=== PATIENT | male | born 1980 | race Caucasian/White ===

== ENCOUNTER 2017-01-16 09:05 | Inpatient (IN) | payer OTHER ==
[2017-01-16 11:28] VITALS: BMI 22.8
--- NOTE | 2017-01-16 15:18 | HP ---
COWS - Scale Resting Pulse: 1= PA 81-100 Sweatin=Flushed/Facial Moisture Restless Observation: 3= Extraneous Movement Pupil Size: 2= Moderately Dilated Bone or Joint Aches: 2= Severe Diffuse Aches Runny Nose/ Eye Tearin= Runny Nose/Eyes GI Upset > 30mins: 3= Vomiting/Diarrhea Tremor Observation: 2= Slight Tremor Visible Yawning Observation: 2= >3x During Session Anxiety or Irritability: 2=Irritable/Anxious Goose Flesh Skin: 0=Smooth Skin COWS Score: 21 CIWA Score - CIWA Score Nausea/Vomitin Muscle Tremors: 3 Anxiety: 3 Agitation: 3 Paroxysmal Sweats: 2 Orientation: 0-Oriented Tacttile Disturbances: 2-Mild Itch/Numbness/Burn Auditory Disturbances: 2-Mild Harshness/Frighten Visual Disturbances: 2-Mild Sensitivity Headache: 2-Mild CIWA-Ar Total Score: 22 Admission ROS BHS - HPI Chief Complaint: i need help to stop using heroin , alcohol and xanax,need detox,last treatment promeza 11/14 nicotine dependence insomnia,depression no significant period of sobriety had previous detox before but relapsing Allergies/Adverse Reactions: Allergies Allergy/AdvReac Type Severity Reaction Status Date / Time No Known Allergies Allergy Verified 01/16/17 12:05 History of Present Illness: this 36 years old male with heroin,alcohol and xanax dependence for detox as mentioned Exam Limitations: No Limitations - Ebola screening Have you traveled outside of the country in the last 21 days: No Have you had contact with anyone from an Ebola affected area: No Have you been sick,other than usual withdrawal symptoms: No - Review of Systems Constitutional: Chills, Diaphoresis, Malaise, Changes in sleep, Unintentional Wgt. Loss EENT: reports: Tearing, Nose Congestion Respiratory: reports: No Symptoms reported Cardiac: reports: Palpitations GI: reports: Diarrhea, Nausea, Vomiting, Abdominal cramping : reports: No Symptoms Reported Musculoskeletal: reports: Back Pain, Joint Pain, Muscle Pain, Joint Stiffness Integumentary: reports: Dryness Neuro: reports: Headache, Tremors Endocrine: reports: No Symptoms Reported Hematology: reports: No Symptoms Reported Psychiatric: reports: No Sypmtoms Reported, Judgement Intact, Mood/Affect Appropiate, Depressed (insomnia) Patient History - Patient Medical History Hx Anemia: No Hx Asthma: No Hx Chronic Obstructive Pulmonary Disease (COPD): No Hx Cancer: No Hx Cardiac Disorders: No Hx Congestive Heart Failure: No Hx Hypertension: No Hx Hypercholesterolemia: No Hx Pacemaker: No HX Cerebrovascular Accident: No Hx Seizures: No Hx Dementia: No Hx Diabetes: No Hx Gastrointestinal Disorders: No Hx Liver Disease: No Hx Genitourinary Disorders: No Hx Sexually Transmitted Disorders: No Hx Renal Disease (ESRD): No Hx Thyroid Disease: No Hx Human Immunodeficiency Virus (HIV): No (10/15 negative) Hx Hepatitis C: No Hx Depression: Yes Hx Suicide Attempt: No Hx Bipolar Disorder: No Hx Schizophrenia: No Other Medical History: insomnia,no suicidal,no homicidal - Patient Surgical History Past Surgical History: No - PPD History Previous Implant?: Yes Documented Results: Negative w/proof Implanted On Prior [facility] Admission?: Yes Date: 11/12/15 Results: 0 mm PPD to be Administered?: Yes - Smoking Cessation Smoking history: Current every day smoker Have you smoked in the past 12 months: Yes Aproximately how many cigarettes per day: 20 Cigars Per Day: 0 Hx Chewing Tobacco Use: No Initiated information on smoking cessation: Yes 'Breaking Loose' booklet given: 01/16/17 - Substance & Tx. History Hx Alcohol Use: Yes Hx Substance Use: Yes Substance Use Type: Alcohol, Heroin, Tranquilizers Hx Substance Use Treatment: Yes (adrien 10/15) - Substances Abused Alcohol Route: Oral Frequency: Daily Amount used: beer(3 -12oz bottles)/vodka(1 pint) Age of first use: 16 Date of Last Use: 01/14/17 Heroin Route: Injection Frequency: Daily Amount used: 2 gms Age of first use: 33 Date of Last Use: 01/16/17 Alprazolam (Xanax) Route: Oral Frequency: Daily Amount used: 2-3 stiks Age of first use: 33 Date of Last Use: 01/14/17 Family Disease History - Family Disease History Family History: Denies Admission Physical Exam BHS - Vital Signs Vital Signs: Vital Signs - 24 hr 01/16/17 11:24 Temperature 98.3 F Pulse Rate 83 Respiratory 16 Rate Blood Pressure 130/73 - Physical General Appearance: Yes: Moderate Distress, Tremorous, Irritable, Sweating, Anxious HEENTM: Yes: Hearing grossly Normal, Normal ENT Inspection, RENA, Pharynx Normal Respiratory: Yes: Lungs Clear, Normal Breath Sounds, No Respiratory Distress Neck: Yes: Within Normal Limits, Supple, Trachea in good position Cardiology: Yes: Within Normal Limits, Regular Rhythm, Regular Rate, S1, S2 Abdominal: Yes: Normal Bowel Sounds, Non Tender, Flat, Soft Genitourinary: Yes: Within Normal Limits Back: Yes: Muscle Spasm Musculoskeletal: Yes: Back pain, Joint Stiffness, Muscle Pain Extremities: Yes: Normal Range of Motion, Tremors Neurological: Yes: airport ramp supervisor II-XII NML intact, Fully Oriented, Alert, Motor Strength 5/5 Integumentary: Yes: Dry Lymphatic: Yes: Within Normal Limits - Diagnostic (1) Opioid dependence with withdrawal Current Visit: No Status: Chronic (2) Alcohol dependence with uncomplicated withdrawal Current Visit: Yes Status: Acute (3) Uncomplicated sedative, hypnotic or anxiolytic withdrawal Current Visit: Yes Status: Acute (4) Insomnia Current Visit: Yes Status: Acute (5) Depression Current Visit: Yes Status: Acute Cleared for Admission [facility] - Detox or Rehab [facility] Level of Care: Medically Managed Detox Regimen/Protocol: Methadone/Valium [facility] Breath Alcohol Content Breath Alcohol Content: 0 Urine Drug Screen - Results Drug Screen Negative: No Urine Drug Screen Results: OPI-Opiates, BZO-Benzodiazepines
[2017-01-16] MEDS ORDERED: MENTHOL/PHENOL 1 EACH UD MM PRN (15:30)
[2017-01-16] MEDS ORDERED: MAGNESIUM CITRATE 300 ML BOTTLE PO PRN (15:30)
[2017-01-16] MEDS ORDERED: IBUPROFEN 400 MG TABLET (FP) PO PRN (15:30)
[2017-01-16] MEDS ORDERED: LOPERAMIDE HCL 2 MG CAPSULE PO PRN (15:30)
[2017-01-16] MEDS ORDERED: MAGNESIUM HYDROX 2400MG/30ML ORAL SUSPENSION 30 ML CUP PO PRN (15:30)
[2017-01-16] MEDS ORDERED: P-EPHED 60MG/TRIPROLIDI 2.5MG TABLET PO PRN (15:30)
[2017-01-16] MEDS ORDERED: MAG HYDROX/AL HYDROX/SIMETH 30 ML UNIT-DOSE CUP PO PRN (15:30)
[2017-01-16] MEDS ORDERED: NICOTINE POLACRILEX 2 MG GUM BC PRN (15:30)
[2017-01-16] MEDS ORDERED: guaiFENesin/D-METHORPHAN HB 10 ML UNIT-DOSE CUPS PO PRN (15:30)
[2017-01-16] MEDS ORDERED: ACETAMINOPHEN 325 MG TABLET (FP) PO PRN (15:30)
[2017-01-16] MEDS ORDERED: diazePAM 5 MG TABLET PO ONE (15:44)
[2017-01-16] MEDS ORDERED: METHADONE HCL 10 MG TABLET (FOR DETOX USE ONLY) PO ONE ×2 (15:45→23:00)
[2017-01-16] MEDS: THIAMINE HCL 100 MG TABLET (FP) PO SCH (22:30)
[2017-01-16] MEDS: diazePAM 5 MG TABLET PO SCH (22:30)
[2017-01-16] MEDS: cloNIDine HCL 0.1 MG TABLET PO SCH (22:30)
[2017-01-16] MEDS: diphenhydrAMINE HCL 50 MG CAPSULE PO PRN (22:31)
[2017-01-16] MEDS: CYCLOBENZAPRINE HCL 10 MG TABLET (FP) PO PRN (22:32)
[2017-01-16 23:21] LABS: URINE APPEARANCE CLEAR; URINE BILIRUBIN NEGATIVE (NEGATIVE); URINE BLOOD NEGATIVE (NEGATIVE); URINE COLOR YELLOW; URINE GLUCOSE (UA) NEGATIVE (NEGATIVE); URINE KETONE TRACE (NEGATIVE); URINE LEUK ESTERASE NEGATIVE (NEGATIVE); URINE NITRITE NEGATIVE (NEGATIVE); URINE PROTEIN NEGATIVE (NEGATIVE); URINE UROBILINOGEN NEGATIVE mg/dL (0.2-1.0)
[2017-01-17] MEDS: diazePAM 5 MG TABLET PO SCH ×3 (05:30→22:14)
--- NOTE | 2017-01-17 08:25 | CONSULT ---
[facility] Psychiatric Consult - Data Date of interview: 01/17/17 Admission source: [facility] Identifying data: This is 36 years old male with no psychiatric hospitalization history intoxicated with: Alcohol, Xanax, Opioids and Nicotine Substance Abuse History: - Smoking Cessation. Smoking history: Current every day smoker. Have you smoked in the past 12 months: Yes. Aproximately how many cigarettes per day: 20. Cigars Per Day: 0. Hx Chewing Tobacco Use: No. Initiated information on smoking cessation: Yes. 'Breaking Loose' booklet given : 01/16/17. - Substance & Tx. History. Hx Alcohol Use: Yes. Hx Substance Use : Yes. Substance Use Type: Alcohol, Heroin, Tranquilizers. Hx Substance Use Treatment: Yes (promeza 10/15). - Substances Abused. Alcohol. Route: Oral. Frequency: Daily. Amount used: beer(3 -12oz bottles)/vodka(1 pint). Age of first use: 16. Date of Last Use: 01/14/17. Heroin. Route: Injection. Frequency: Daily. Amount used: 2 gms. Age of first use: 33. Date of Last Use: 01/16/17. Alprazolam (Xanax). Route: Oral. Frequency: Daily. Amount used: 2-3 stiks. Age of first use: 33. Date of Last Use: 01/14/17 Medical History: Denies any significant medical problems Psychiatric History: Patient reports mhbistory of depression, reports no medications taking prior to admission, denies suicidal history, preoccupied with insomnia, reports taking prior to admission. Ambien 10mg po qhs Physical/Sexual Abuse/Trauma History: Denies Additional Comment: Ambien 10mg po qhs Mental Status Exam - Mental Status Exam Alert and Oriented to: Person Cognitive Function: Fair Patient Appearance: Unkempt Mood: Sad Affect: Mood Congruent Patient Behavior: Cooperative Speech Pattern: Appropriate Voice Loudness: Normal Thought Process: Circumstantial Thought Disorder: Being Controlled Hallucinations: Denies Suicidal Ideation: Denies Homicidal Ideation: Denies Insight/Judgement: Fair Sleep: Difficulty falling asleep Appetite: Fair Muscle strength/Tone: Mild Hypotonicity Gait/Station: Shuffling Additional Comments: Ambien 10mg po qhs Psychiatric Findings - Problem List ([place] 1, 2,3) (1) Alcohol dependence with uncomplicated withdrawal Current Visit: Yes Status: Acute (2) Uncomplicated sedative, hypnotic or anxiolytic withdrawal Current Visit: Yes Status: Acute (3) Nicotine dependence Current Visit: No Status: Chronic Qualifiers: Nicotine product type: cigarettes Substance use status: uncomplicated Qualified Code(s): F17.210 - Nicotine dependence, cigarettes, uncomplicated (4) Opioid dependence with withdrawal Current Visit: No Status: Chronic (5) Drug-induced mood disorder Current Visit: Yes Status: Acute - Initial Treatment Plan Initial Treatment Plan: Ambien 10mg po qhs
[2017-01-17] MEDS ORDERED: METHADONE HCL 10 MG TABLET (FOR DETOX USE ONLY) PO SCH (10:00)
[2017-01-17 10:06] LABS: MCH 27.9 pg (25.7-33.7); MCHC 33.2 g/dl (32.0-35.9); MEAN CELL VOLUME 84.1 fl (80-96); MEAN PLT VOLUME 9.4 fl (7.5-11.1); PLATELET COUNT 219 K/MM3 (134-434); RDW 14.4 % (11.9-15.9); WHITE BLOOD COUNT 9.2 K/mm3 (4.0-10.0)
[2017-01-17 10:09] LABS: ANION GAP 6 (8-16); CALCIUM 9.8 mg/dL (8.5-10.1); CO2 30 mmol/L (21-32); CREATININE 0.7 mg/dL (0.7-1.3); GLUCOSE,RANDOM 87 mg/dL (74-106); SGOT/AST 15 U/L (15-37); SGPT/ALT 20 U/L (12-78); TOT PROT 8.7 g/dl (6.4-8.2)
[2017-01-17 10:12] LABS: ALK PHOS 86 U/L (45-117); BILIRUBIN,TOTAL 0.5 mg/dL (0.2-1.0)
[2017-01-17] MEDS: cloNIDine HCL 0.1 MG TABLET PO SCH ×2 (10:33→22:14)
[2017-01-17] MEDS: PRENATAL VITAMINS W/ FOLIC ACID TABLET (FP) PO SCH (10:33)
[2017-01-17] MEDS: CYCLOBENZAPRINE HCL 10 MG TABLET (FP) PO PRN (10:35)
[2017-01-17] MEDS: diazePAM 5 MG TABLET PO PRN (10:35)
--- NOTE | 2017-01-17 11:08 | PN ---
S CIWA - CIWA Score Nausea/Vomitin Muscle Tremors: 3 Anxiety: 3 Agitation: 3 Paroxysmal Sweats: 2 Orientation: 0-Oriented Tacttile Disturbances: 1-Very Mild Itch/Numbness Auditory Disturbances: 1-Very Mild Visual Disturbances: 1-Very Mild Sensitivity Headache: 2-Mild CIWA-Ar Total Score: 19 BHS COWS - Scale Resting Pulse: 1= PA 81-100 Sweatin= Chills/Flushing Restless Observation: 3= Extraneous Movement Pupil Size: 1= Pupils >than Normal Bone or Joint Aches: 2= Severe Diffuse Aches Runny Nose/ Eye Tearin= Runny Nose/Eyes GI Upset > 30mins: 2= Nausea/Diarrhea Tremor Observation of Outstretched Hands: 2= Slight Tremor Visible Yawning Observation: 1= 1-2x During Session Anxiety or Irritability: 2=Irritable/Anxious Goose Flesh Skin: 0=Smooth Skin COWS Score: 17 S Progress Note (SOAP) Subjective: ALERT,IRRITABLE,ANXIOUS,INTERRUPTED SLEEP,TREMOR,PAIN IN THE BODY AND BACK Objective: 01/17/17 11:06 Vital Signs Temperature 98.1 F 01/17/17 10:00 Pulse Rate 62 01/17/17 10:00 Respiratory Rate 18 01/17/17 10:00 Blood Pressure 112/83 01/17/17 10:00 O2 Sat by Pulse Oximetry (%) EKG NSR NO CHEST PAIN,NO SOB,NO DIZZINESS Laboratory Last Values WBC 9.2 K/mm3 (4.0-10.0) 01/17/17 06:00 RBC 5.39 M/mm3 (4.00-5.60) 01/17/17 06:00 Hgb 15.0 GM/dL (11.7-16.9) 01/17/17 06:00 Hct 45.3 % (35.4-49) 01/17/17 06:00 MCV 84.1 fl (80-96) 01/17/17 06:00 MCH 27.9 pg (25.7-33.7) 01/17/17 06:00 MCHC 33.2 g/dl (32.0-35.9) 01/17/17 06:00 RDW 14.4 % (11.9-15.9) 01/17/17 06:00 Plt Count 219 K/MM3 (134-434) 01/17/17 06:00 MPV 9.4 fl (7.5-11.1) 01/17/17 06:00 Sodium 135 mmol/L (136-145) L 01/17/17 06:00 Potassium 4.4 mmol/L (3.5-5.1) 01/17/17 06:00 Chloride 99 mmol/L (98-107) 01/17/17 06:00 Carbon Dioxide 30 mmol/L (21-32) 01/17/17 06:00 Anion Gap 6 (8-16) L 01/17/17 06:00 BUN 8 mg/dL (7-18) 01/17/17 06:00 Creatinine 0.7 mg/dL (0.7-1.3) 01/17/17 06:00 Creat Clearance w eGFR > 60 (>60) 01/17/17 06:00 Random Glucose 87 mg/dL (74-106) 01/17/17 06:00 Calcium 9.8 mg/dL (8.5-10.1) 01/17/17 06:00 Total Bilirubin 0.5 mg/dL (0.2-1.0) D 01/17/17 06:00 AST 15 U/L (15-37) D 01/17/17 06:00 ALT 20 U/L (12-78) 01/17/17 06:00 Alkaline Phosphatase 86 U/L (45-117) 01/17/17 06:00 Total Protein 8.7 g/dl (6.4-8.2) H 01/17/17 06:00 Albumin 4.0 g/dl (3.4-5.0) 01/17/17 06:00 Urine Color Yellow 01/16/17 22:00 Urine Appearance Clear 01/16/17 22:00 Urine pH 6.0 (5.0-8.0) 01/16/17 22:00 Ur Specific [place] 1.025 (1.005-1.025) 01/16/17 22:00 Urine Protein Negative (NEGATIVE) 01/16/17 22:00 Urine Glucose (UA) Negative (NEGATIVE) 01/16/17 22:00 Urine Ketones Trace (NEGATIVE) H 01/16/17 22:00 Urine Blood Negative (NEGATIVE) 01/16/17 22:00 Urine Nitrite Negative (NEGATIVE) 01/16/17 22:00 Urine Bilirubin Negative (NEGATIVE) 01/16/17 22:00 Urine Urobilinogen Negative mg/dL (0.2-1.0) 01/16/17 22:00 Ur Leukocyte Esterase Negative (NEGATIVE) 01/16/17 22:00 RPR Titer Nonreactive (NONREACTIVE) 01/17/17 06:00 WITHDRAWAL SYMPTOM Assessment: 01/17/17 11:07 WITHDRAWAL SYMPTOM Plan: CONTINUE DETOX
--- NOTE | 2017-01-17 16:38 | EKG ---
Test Reason : Blood Pressure : / mmHG Vent. Rate : 061 BPM Atrial Rate : 061 BPM P-R Int : 182 ms QRS Dur : 092 ms QT Int : 386 ms P-R-T Axes : 055 092 048 degrees QTc Int : 388 ms NORMAL SINUS RHYTHM RIGHTWARD AXIS BORDERLINE ECG NO PREVIOUS ECGS AVAILABLE Confirmed by ESTEFANY ORTIZ, NGUYEN ([id number]) on 01/17/2017 4:38:09 PM Referred By: Confirmed By:NGUYEN ALLISON MD
[2017-01-17] MEDS: THIAMINE HCL 100 MG TABLET (FP) PO SCH (22:14)
[2017-01-17] MEDS: ZOLPIDEM TARTRATE 10 MG TABLET (PARK CARE ONLY) PO PRN (22:14)
[2017-01-18] MEDS: diazePAM 5 MG TABLET PO PRN ×3 (02:41→18:21)
[2017-01-18] MEDS: hydrOXYzine PAMOATE 50 MG CAPSULE (FP) PO PRN (02:41)
[2017-01-18] MEDS: PRENATAL VITAMINS W/ FOLIC ACID TABLET (FP) PO SCH (11:00)
[2017-01-18] MEDS: diazePAM 5 MG TABLET PO SCH ×2 (11:00→22:48)
[2017-01-18] MEDS: METHADONE HCL 5 MG TABLET (FOR DETOX USE ONLY) PO SCH (11:00)
[2017-01-18] MEDS: cloNIDine HCL 0.1 MG TABLET PO SCH ×2 (11:00→22:48)
--- NOTE | 2017-01-18 11:12 | PN ---
[facility] CIWA - CIWA Score Nausea/Vomitin Muscle Tremors: 3 Anxiety: 3 Agitation: 2 Paroxysmal Sweats: 1-Minimal Palms Moist Orientation: 0-Oriented Tacttile Disturbances: 1-Very Mild Itch/Numbness Auditory Disturbances: 1-Very Mild Visual Disturbances: 1-Very Mild Sensitivity Headache: 2-Mild CIWA-Ar Total Score: 17 BHS COWS - Scale Resting Pulse: 0= MD 80 or Below Sweatin= Chills/Flushing Restless Observation: 3= Extraneous Movement Pupil Size: 1= Pupils >than Normal Bone or Joint Aches: 2= Severe Diffuse Aches Runny Nose/ Eye Tearin= Runny Nose/Eyes GI Upset > 30mins: 2= Nausea/Diarrhea Tremor Observation of Outstretched Hands: 2= Slight Tremor Visible Yawning Observation: 1= 1-2x During Session Anxiety or Irritability: 2=Irritable/Anxious Goose Flesh Skin: 0=Smooth Skin COWS Score: 16 S Progress Note (SOAP) Subjective: ALERT,IRRITABLE,ANXIOUS,INTERRUPTED SLEEP,PAIN IN THE BODY AND BACK Objective: 01/18/17 11:11 Vital Signs Temperature 97.5 F L 01/18/17 10:00 Pulse Rate 72 01/18/17 10:00 Respiratory Rate 18 01/18/17 10:00 Blood Pressure 116/75 01/18/17 10:00 O2 Sat by Pulse Oximetry (%) Assessment: 01/18/17 11:11 WITHDRAWAL SYMPTOM Plan: CONTINUE DETOX
[2017-01-18] MEDS: CYCLOBENZAPRINE HCL 10 MG TABLET (FP) PO PRN ×2 (14:25→22:48)
[2017-01-18] MEDS: THIAMINE HCL 100 MG TABLET (FP) PO SCH (22:48)
[2017-01-18] MEDS: ZOLPIDEM TARTRATE 10 MG TABLET (PARK CARE ONLY) PO PRN (22:48)
[2017-01-19] MEDS: diazePAM 5 MG TABLET PO PRN (02:44)
[2017-01-19] MEDS: METHADONE HCL 5 MG TABLET (FOR DETOX USE ONLY) PO SCH (11:04)
[2017-01-19] MEDS: cloNIDine HCL 0.1 MG TABLET PO SCH ×2 (11:04→22:41)
[2017-01-19] MEDS: PRENATAL VITAMINS W/ FOLIC ACID TABLET (FP) PO SCH (11:04)
[2017-01-19] MEDS: hydrOXYzine PAMOATE 50 MG CAPSULE (FP) PO PRN (11:04)
[2017-01-19] MEDS: CYCLOBENZAPRINE HCL 10 MG TABLET (FP) PO PRN (11:04)
[2017-01-19] MEDS: diazePAM 5 MG TABLET PO SCH ×2 (11:05→22:41)
--- NOTE | 2017-01-19 11:56 | PN ---
BHS Progress Note (SOAP) Subjective: alert,irritable,anxious,interrupted sleep,pain in the body Objective: 01/19/17 11:55 Vital Signs Temperature 98.1 F 01/19/17 10:00 Pulse Rate 73 01/19/17 10:00 Respiratory Rate 18 01/19/17 10:00 Blood Pressure 113/57 01/19/17 10:00 O2 Sat by Pulse Oximetry (%) Assessment: 01/19/17 11:56 withdrawal symptom Plan: continue detox
[2017-01-19] MEDS: ZOLPIDEM TARTRATE 10 MG TABLET (PARK CARE ONLY) PO PRN (22:41)
[2017-01-19] MEDS: THIAMINE HCL 100 MG TABLET (FP) PO SCH (22:41)
[2017-01-20] MEDS: diphenhydrAMINE HCL 50 MG CAPSULE PO PRN (02:32)
[2017-01-20] MEDS: hydrOXYzine PAMOATE 50 MG CAPSULE (FP) PO PRN (06:03)
[2017-01-20] MEDS ORDERED: diazePAM 5 MG TABLET PO SCH (10:00)
[2017-01-20] MEDS ORDERED: METHADONE HCL 10 MG TABLET (FOR DETOX USE ONLY) PO SCH (10:00)
[2017-01-20] MEDS: cloNIDine HCL 0.1 MG TABLET PO SCH ×2 (10:47→22:18)
[2017-01-20] MEDS: CYCLOBENZAPRINE HCL 10 MG TABLET (FP) PO PRN ×2 (10:47→22:18)
[2017-01-20] MEDS: PRENATAL VITAMINS W/ FOLIC ACID TABLET (FP) PO SCH (10:47)
--- NOTE | 2017-01-20 11:01 | PN ---
BHS Progress Note (SOAP) Subjective: ALERT,IRRITABLE,ANXIOUS,INTERRUPTED SLEEP Objective: 01/20/17 11:00 Vital Signs Temperature 97 F L 01/20/17 10:00 Pulse Rate 60 01/20/17 10:00 Respiratory Rate 18 01/20/17 10:00 Blood Pressure 121/77 01/20/17 10:00 O2 Sat by Pulse Oximetry (%) Assessment: 01/20/17 11:00 WITHDRAWAL SYMPTOM Plan: CONTINUE DETOX,DISCHARGE IN AM
[2017-01-20] MEDS: ZOLPIDEM TARTRATE 10 MG TABLET (PARK CARE ONLY) PO PRN (22:18)
[2017-01-20] MEDS: THIAMINE HCL 100 MG TABLET (FP) PO SCH (22:18)
[2017-01-21] MEDS: diphenhydrAMINE HCL 50 MG CAPSULE PO PRN (00:03)
[2017-01-21] MEDS: hydrOXYzine PAMOATE 50 MG CAPSULE (FP) PO PRN ×2 (03:47→11:12)
[2017-01-21] MEDS ORDERED: METHADONE HCL 5 MG TABLET (FOR DETOX USE ONLY) PO SCH (06:00)
[2017-01-21 06:15] VITALS: BP 115/63; PULSE 47; TEMP 97.7
--- NOTE | 2017-01-21 08:08 | DS ---
[facility] Detox Discharge Summary Admission Date: 01/16/17 Discharge Date: 01/21/17 - History Present History: Alcohol Dependence, Opioid Dependence, Sedative Dependence Additional Comments: FOLLOW UP WITH AFTER CARE PROGRAM ARRANGEMENT Pertinent Past History: INSOMNIA DEPRESSION - Physical Exam Results Vital Signs: Vital Signs Temperature 97.7 F 01/21/17 06:14 Pulse Rate 47 L 01/21/17 06:14 Respiratory Rate 18 01/21/17 06:14 Blood Pressure 115/63 01/21/17 06:14 O2 Sat by Pulse Oximetry (%) Pertinent Admission Physical Exam Findings: WITHDRAWAL SYMPTOM - Treatment Hospital Course: Detox Protocol Followed, Detoxed Safely, Responded well, Discharged Condition Good Patient has Accepted a Rehab Referral to: DECLINED - Medication Discharge Medications: Ambulatory Orders NK [No Known Home Medication] 11/10/15 - Diagnosis (1) Opioid dependence with withdrawal Current Visit: No Status: Chronic (2) Alcohol dependence with uncomplicated withdrawal Current Visit: Yes Status: Acute (3) Uncomplicated sedative, hypnotic or anxiolytic withdrawal Current Visit: Yes Status: Acute (4) Insomnia Current Visit: Yes Status: Acute (5) Depression Current Visit: Yes Status: Acute (6) Nicotine dependence Current Visit: No Status: Chronic Qualifiers: Nicotine product type: cigarettes Substance use status: uncomplicated Qualified Code(s): F17.210 - Nicotine dependence, cigarettes, uncomplicated - AMA Did Patient Leave Against Medical Advice: No
[2017-01-21] MEDS: cloNIDine HCL 0.1 MG TABLET PO SCH (11:12)
[2017-01-21] MEDS: PRENATAL VITAMINS W/ FOLIC ACID TABLET (FP) PO SCH (11:12)
== END 2017-01-21 11:48 | disposition home or self-care (01) | DRG 773 ==
LOC: YASAS 09:05 → Y6N 13:09
PROVIDERS: ADMIT Internal Medicine Addiction Medicine; ATTEND Internal Medicine Addiction Medicine
PROC: HZ2ZZZZ Detoxification Services for Substance Abuse Treatment (ICD-10-PCS; principal; 2017-01-16)
DX: F11.23 Opioid dependence with withdrawal (principal); F13.230 Sedative, hypnotic or anxiolytic dependence with withdrawal, uncomplicated; F10.230 Alcohol dependence with withdrawal, uncomplicated; F17.210 Nicotine dependence, cigarettes, uncomplicated; F32.9 Major depressive disorder, single episode, unspecified; G47.00 Insomnia, unspecified
CPT/HCPCS: 36415; 80053; 81003; 85027; 86593; 93005; 93010

== ENCOUNTER 2017-09-24 13:22 | Inpatient (IN) | payer OTHER ==
[2017-09-24] MEDS ORDERED: ACETAMINOPHEN 325 MG TABLET (FP) PO PRN (13:41)
[2017-09-24] MEDS ORDERED: LOPERAMIDE HCL 2 MG CAPSULE PO PRN (13:41)
[2017-09-24] MEDS ORDERED: MAG HYDROX/AL HYDROX/SIMETH 30 ML UNIT-DOSE CUP PO PRN (13:41)
[2017-09-24] MEDS ORDERED: P-EPHED 60MG/TRIPROLIDI 2.5MG TABLET PO PRN (13:41)
[2017-09-24] MEDS ORDERED: MAGNESIUM HYDROX 2400MG/30ML ORAL SUSPENSION 30 ML CUP PO PRN (13:41)
[2017-09-24] MEDS ORDERED: MAGNESIUM CITRATE 300 ML BOTTLE PO PRN (13:41)
[2017-09-24] MEDS ORDERED: guaiFENesin/D-METHORPHAN HB 10 ML UNIT-DOSE CUPS PO PRN (13:41)
[2017-09-24] MEDS ORDERED: NICOTINE POLACRILEX 2 MG GUM BUC PRN (13:41)
[2017-09-24] MEDS ORDERED: MENTHOL/PHENOL 1 EACH UD MM PRN (13:41)
--- NOTE | 2017-09-24 14:11 | HP ---
Psychiatrist Admission - Data Date of interview: 09/24/17 Admission source: 3N Identifying data: This is the [facility] [place] Inpatient rehabilitation admission for this 37 years old male living as , father of 5 children, unemployed, living with his mother Medical History: Unremarkable except for abscess right forearm due IVDU. Smokes 10 cigarettes daily Psychiatric History: Denies history of previous psychiatric treatment. However reports feeling somewhat depressed due to immigation issue and sleeping poorly Physical/Sexual Abuse/Trauma History: Denies history of emotional, physical or sexual abuseas well as DV relationship Additional Comment: Reports history of multiple previous arrests. Cla he had one felony that was dismissed after he completed a program. Denies being on probation at present. No active opoen case Vital Signs: Vital Signs - 24 hr 09/24/17 13:46 Temperature 97.3 F L Pulse Rate 63 Respiratory 18 Rate Blood Pressure 101/74 Allergies/Adverse Reactions: Allergies Allergy/AdvReac Type Severity Reaction Status Date / Time No Known Allergies Allergy Verified 09/24/17 13:46 Date of last physical exam: 09/19/17 Concur with the findings of this exam: Yes - Substance Abuse/Tx History Hx Alcohol Use: No Mental Status Exam - Mental Status Exam Alert and Oriented to: Time, Place, Person Cognitive Function: Fair Patient Appearance: Well Groomed Mood: Depressed Affect: Appropriate Patient Behavior: Cooperative Speech Pattern: Clear Voice Loudness: Normal Thought Process: Intact, Goal Oriented Thought Disorder: Not Present Hallucinations: Denies Suicidal Ideation: Denies Homicidal Ideation: Denies Insight/Judgement: Poor Sleep: Poorly Appetite: Good Muscle strength/Tone: Normal Gait/Station: Normal Psychiatric Findings - Problem List ([place] 1, 2,3) (1) Opioid dependence Current Visit: Yes Status: Acute (2) Sedative hypnotic or anxiolytic dependence Current Visit: Yes Status: Acute (3) Nicotine dependence Current Visit: Yes Status: Chronic Qualifiers: Nicotine product type: cigarettes Substance use status: in withdrawal Qualified Code(s): F17.213 - Nicotine dependence, cigarettes, with withdrawal (4) Substance induced mood disorder Current Visit: Yes Status: Acute (5) Substance-induced sleep disorder Current Visit: Yes Status: Acute (6) Cellulitis Current Visit: Yes Status: Chronic Qualifiers: Site of cellulitis: extremity Site of cellulitis of extremity: upper extremity Laterality: right Qualified Code(s): L03.113 - Cellulitis of right upper limb - Initial Treatment Plan Initial Treatment Plan: 1) Start Belsomra 10 mg po HS prn for insomnia. 2) Monitor progress
--- NOTE | 2017-09-24 14:17 | HP ---
[facility] Rehab Assess/Revision - Admission History Ad[facility] Rehab [facility] Date of Admission to Rehab: 09/24/17 - Vital signs Vital Signs: Vital Signs Period Temp Pulse Resp BP Sys/Lantigua Pulse Ox Last 24 Hr 97.3 F 63 18 101/74 - Findings Detox History & Physical reviewed: Yes Concur with findings: Yes Comments/Additional Findings: ADMITTED TO REHAB FOR AFTERCARE IN STABLE CONDITION. Inpatient Rehab Admission - Initial Determination Are CD services needed?: Yes Free of communicable disease: Yes Not in need of hospitalization: Yes - Rehab Admission Criteria Patient is meeting Inpatient Rehab admission criteria:: Yes
[2017-09-24] MEDS: CLINDAMYCIN HCL 150 MG CAPSULE (FP) PO SCH ×2 (15:51→21:31)
[2017-09-24] MEDS: NICOTINE 14 MG/24 HOURS TOPICAL PATCH TD SCH (15:52)
[2017-09-24] MEDS: THIAMINE HCL 100 MG TABLET (FP) PO SCH (21:31)
[2017-09-24] MEDS ORDERED: SUVOREXANT 10 MG TABLET PO PRN (22:00)
[2017-09-25] MEDS: CLINDAMYCIN HCL 150 MG CAPSULE (FP) PO SCH ×3 (06:26→21:33)
[2017-09-25] MEDS: NICOTINE 14 MG/24 HOURS TOPICAL PATCH TD SCH (09:53)
[2017-09-25] MEDS: PRENATAL VITAMINS W/ FOLIC ACID TABLET (FP) PO SCH (09:53)
[2017-09-25] MEDS: IBUPROFEN 400 MG TABLET (FP) PO PRN (09:55)
[2017-09-25] MEDS ORDERED: [UNRECOGNIZED DRUG - OTHER] TP SCH (10:00)
[2017-09-25] MEDS: [UNRECOGNIZED DRUG - OTHER] TP SCH (10:32)
--- NOTE | 2017-09-25 13:35 | PN ---
[facility] Progress Note Note: Patient presents with withdrawal symptoms: sweating, nausea, diarrhea, tremors and anxiety. Vital Signs Temperature 97.8 F 09/25/17 06:50 Pulse Rate 61 09/25/17 06:50 Respiratory Rate 18 09/25/17 06:50 Blood Pressure 107/71 09/25/17 06:50 O2 Sat by Pulse Oximetry (%) Subj:pt reports anxiety, tremors, sweating and diarrhea x 3 days. Completed detox from heroin. Was treated in past with suboxone. Obj: A and O x 3. Skin warm and moist. +tremors. Pt anxious and has difficulty sitting still. Gi: soft, BS+, NT A/P Withdrawal symptoms from Heroin dependence Will start Suboxone 2mg today then 2mg daily starting tomorrow. Continue immodium for diarrhea and oral hydration Continue to monitor clinically
--- NOTE | 2017-09-25 13:36 | PN ---
Psychiatric Progress Note Vital Signs: Vital Signs Period Temp Pulse Resp BP Sys/Lantigua Pulse Ox Last 24 Hr 97.3 F-97.8 F 61-63 18-18 101-107/71-74 Date of Session: 09/25/17 Chief Complaint:: Insomnia HPI: Patient addressing Opoid and Sedative Dependence comorbid with Nicotine Dependence, Substance-Induced Mood Disorder and Substance-Induced Sleep Disorder ROS: Cellulitis right forearm Current Medications: Active Medications Generic Name Dose Route Start Last Admin Trade Name Freq PRN Reason Stop Dose Admin Acetaminophen 650 mg 09/24/17 13:41 Tylenol - PO Q4H PRN FEVER Al Hydroxide/Mg Hydroxide 30 ml 09/24/17 13:41 Mylanta Oral Suspension - PO Q6H PRN DYSPEPSIA Buprenorphine/Naloxone 1 each 09/25/17 13:45 Suboxone 2mg/0.5mg Sl Film - SL 09/25/17 13:46 ONCE ONE Buprenorphine/Naloxone 1 each 09/26/17 10:00 Suboxone 2mg/0.5mg Sl Film - SL DAILY FITZ Clindamycin HCl 600 mg 09/24/17 14:00 09/25/17 06:26 Cleocin - PO 600 mg Q8H FITZ Administration Eucalyptus/Menthol/Phenol/Sorbitol 1 each 09/24/17 13:41 Cepastat Lozenge - MM Q4H PRN SORE THROAT Guaifenesin 10 ml 09/24/17 13:41 Robitussin Dm - PO Q6H PRN COUGH Hydroxyzine Pamoate 50 mg 09/24/17 13:41 Vistaril - PO Q4H PRN AGITATION Ibuprofen 400 mg 09/24/17 13:41 09/25/17 09:55 Motrin - PO 400 mg Q6H PRN Administration Pain Level 4-6 Loperamide HCl 4 mg 09/24/17 13:41 Imodium - PO Q6H PRN DIARRHEA Magnesium Citrate 300 ml 09/24/17 13:41 Citroma - PO Q48H PRN CONSTIPATION Magnesium Hydroxide 30 ml 09/24/17 13:41 Milk Of Magnesia - PO DAILY PRN CONSTIPATION Melatonin 5 mg 09/24/17 22:00 Melatonin PO HS PRN INSOMNIA Nicotine 14 mg 09/24/17 14:00 09/25/17 09:53 Nicoderm Patch - TD Not Given DAILY FITZ Nicotine Polacrilex 2 mg 09/24/17 13:41 Nicorette Gum - BUC Q2H PRN NICOTINE REPLACEMENT RX Non-Formulary Medication 1 applic 09/25/17 10:00 Gel Dressing [Solosite] TP DAILY FITZ Multivit/Folic Acid/Iron 1 tab 09/25/17 10:00 09/25/17 09:53 Vitamins ([facility]) - PO 1 tab DAILY FITZ Administration Pseudoephedrine/Triprolidine 1 combo 09/24/17 13:41 Actifed - PO TID PRN NASAL CONGESTION Thiamine HCl 100 mg 09/24/17 22:00 09/24/17 21:31 Vitamin B1 - PO 100 mg HS FITZ Administration Medication(s) Change(s): Increase Belsomra dosage to 15 mg po HS prn for insmnia Current Side Effect: No Lab tests ordered: Yes Lab tests reviewed: Yes Provider note:: Patient reports experiencing difficuly to sleep. Told narrative writer that he has been sleeping poorly despite taking Belsomra 10 mg at bedtime last night. Discussed about raising dosage to 15 mg po HS as needed and he agreed with plan Total face to face time:: 15 Mental Status Exam - Mental Status Exam Alert and Oriented to: Time, Place, Person Cognitive Function: Fair Patient Appearance: Well Groomed Mood: Hopeful, Euthymic Affect: Appropriate Patient Behavior: Cooperative Speech Pattern: Clear Voice Loudness: Normal Thought Process: Intact, Goal Oriented Thought Disorder: Not Present Hallucinations: Denies Suicidal Ideation: Denies Homicidal Ideation: Denies Insight/Judgement: Fair Sleep: Poorly Appetite: Good Muscle strength/Tone: Normal Gait/Station: Normal Psychiatric Treatment Plan - Problem List (1) Opioid dependence Current Visit: Yes (2) Sedative hypnotic or anxiolytic dependence Current Visit: Yes (3) Nicotine dependence Current Visit: Yes Qualifiers: Nicotine product type: cigarettes Substance use status: in withdrawal Qualified Code(s): F17.213 - Nicotine dependence, cigarettes, with withdrawal (4) Substance induced mood disorder Current Visit: Yes (5) Substance-induced sleep disorder Current Visit: Yes (6) Cellulitis Current Visit: Yes Qualifiers: Site of cellulitis: extremity Site of cellulitis of extremity: upper extremity Laterality: right Qualified Code(s): L03.113 - Cellulitis of right upper limb Initial treatment plan: 1) Discontiue Belsomra 10 mg po HS prn for insomnia. 2 ) Start Belsomra 15 mg po HS prn for insomnia. 3) Monitor progress
[2017-09-25] MEDS ORDERED: BUPRENORPHINE/NALOXONE 2 MG/0.5 MG FILM PACKET SL ONE (13:45)
[2017-09-25] MEDS: SUVOREXANT 15 MG TABLET PO PRN (21:33)
[2017-09-25] MEDS: THIAMINE HCL 100 MG TABLET (FP) PO SCH (21:33)
[2017-09-26] MEDS: CLINDAMYCIN HCL 150 MG CAPSULE (FP) PO SCH ×3 (06:22→21:38)
--- NOTE | 2017-09-26 07:49 | PDOC ---
Patient Follow-up (Call Back) - Post ED Follow - Up Reason for Call Back: Abnwl. Microbiology (Patient Gram stain culture normal. Wound culture preliminary report shows presumptive PS aeruginosa and lactose fermenting negative bacilli. Patient currently on clindamycin will await final report.)
[2017-09-26] MEDS: NICOTINE 14 MG/24 HOURS TOPICAL PATCH TD SCH (10:10)
[2017-09-26] MEDS: [UNRECOGNIZED DRUG - OTHER] TP SCH (10:10)
[2017-09-26] MEDS: BUPRENORPHINE/NALOXONE 2 MG/0.5 MG FILM PACKET SL SCH (10:10)
[2017-09-26] MEDS: PRENATAL VITAMINS W/ FOLIC ACID TABLET (FP) PO SCH (10:10)
[2017-09-26] MEDS: THIAMINE HCL 100 MG TABLET (FP) PO SCH (21:38)
[2017-09-26] MEDS: SUVOREXANT 15 MG TABLET PO PRN (21:39)
[2017-09-26] MEDS: hydrOXYzine PAMOATE 50 MG CAPSULE (FP) PO PRN (21:40)
[2017-09-27] MEDS: CLINDAMYCIN HCL 150 MG CAPSULE (FP) PO SCH ×3 (06:26→22:07)
[2017-09-27] MEDS: PRENATAL VITAMINS W/ FOLIC ACID TABLET (FP) PO SCH (10:16)
[2017-09-27] MEDS: BUPRENORPHINE/NALOXONE 2 MG/0.5 MG FILM PACKET SL SCH (10:16)
[2017-09-27] MEDS: NICOTINE 14 MG/24 HOURS TOPICAL PATCH TD SCH (10:16)
[2017-09-27] MEDS: [UNRECOGNIZED DRUG - OTHER] TP SCH (10:17)
[2017-09-27] MEDS ORDERED: PT OWN MED DRAWER 7, Y5N ONE (14:42)
--- NOTE | 2017-09-27 14:55 | PN ---
[facility] Progress Note Note: Patient presents with protected opioid withdrawal symptoms: sweating, nausea, diarrhea, tremors and anxiety. Vital Signs Period Temp Pulse Resp BP Sys/Lantigua Pulse Ox Last 24 Hr 98.0 F 62 18 129/75 Subj:pt reports anxiety, tremors, sweating and diarrhea. Reports Suboxone help temporarily but sympotms return today. Completed detox from heroin. Was treated in past with suboxone . Obj: A and O x 3. No apparent distress Skin warm and moist. +tremors. Pt anxious and has difficulty sitting still. Gi: soft, BS+, NT Normal HR, RR A/P Protracted withdrawal symptoms from Heroin dependence Will increase Suboxone from 2mg today to 4 mg daily starting tomorrow. Continue immodium for diarrhea and oral hydration Increase fluids Continue to monitor clinically
[2017-09-27] MEDS: hydrOXYzine PAMOATE 50 MG CAPSULE (FP) PO PRN (22:06)
[2017-09-27] MEDS: SUVOREXANT 15 MG TABLET PO PRN (22:06)
[2017-09-27] MEDS: THIAMINE HCL 100 MG TABLET (FP) PO SCH (22:06)
[2017-09-27] MEDS: MELATONIN 5 MG TABLETS PO PRN (22:06)
[2017-09-28] MEDS: CLINDAMYCIN HCL 150 MG CAPSULE (FP) PO SCH ×3 (07:08→21:30)
[2017-09-28] MEDS: BUPRENORPHINE/NALOXONE 2 MG/0.5 MG FILM PACKET SL SCH (09:52)
[2017-09-28] MEDS: PRENATAL VITAMINS W/ FOLIC ACID TABLET (FP) PO SCH (09:52)
[2017-09-28] MEDS: NICOTINE 14 MG/24 HOURS TOPICAL PATCH TD SCH (09:53)
[2017-09-28] MEDS: [UNRECOGNIZED DRUG - OTHER] TP SCH (10:23)
[2017-09-28] MEDS ORDERED: PT OWN MED DRAWER 7, Y5N ONE ×3 (11:09→15:23)
--- NOTE | 2017-09-28 15:39 | PN ---
[facility] Progress Note Note: Psychiatry Attending's note : Belsomra 15 mg po hs prn. Renewed at nurse's request. Brief meeting with patient. Mr Romero agrees with that careplan.
[2017-09-28] MEDS: MELATONIN 5 MG TABLETS PO PRN (21:29)
[2017-09-28] MEDS: SUVOREXANT 15 MG TABLET PO PRN (21:30)
[2017-09-28] MEDS: THIAMINE HCL 100 MG TABLET (FP) PO SCH (21:30)
[2017-09-28] MEDS: hydrOXYzine PAMOATE 50 MG CAPSULE (FP) PO PRN (21:30)
[2017-09-29] MEDS: CLINDAMYCIN HCL 150 MG CAPSULE (FP) PO SCH ×3 (06:52→21:26)
[2017-09-29] MEDS: PRENATAL VITAMINS W/ FOLIC ACID TABLET (FP) PO SCH (09:59)
[2017-09-29] MEDS: NICOTINE 14 MG/24 HOURS TOPICAL PATCH TD SCH (09:59)
[2017-09-29] MEDS: BUPRENORPHINE/NALOXONE 2 MG/0.5 MG FILM PACKET SL SCH (09:59)
[2017-09-29] MEDS: [UNRECOGNIZED DRUG - OTHER] TP SCH (10:01)
[2017-09-29] MEDS ORDERED: PT OWN MED DRAWER 7, Y5N ONE (10:02)
[2017-09-29] MEDS: THIAMINE HCL 100 MG TABLET (FP) PO SCH (21:26)
[2017-09-29] MEDS: SUVOREXANT 15 MG TABLET PO PRN (21:26)
[2017-09-29] MEDS: MELATONIN 5 MG TABLETS PO PRN (21:27)
[2017-09-29] MEDS: hydrOXYzine PAMOATE 50 MG CAPSULE (FP) PO PRN (21:27)
[2017-09-30] MEDS: CLINDAMYCIN HCL 150 MG CAPSULE (FP) PO SCH ×3 (06:38→21:23)
[2017-09-30] MEDS: NICOTINE 14 MG/24 HOURS TOPICAL PATCH TD SCH (10:05)
[2017-09-30] MEDS: BUPRENORPHINE/NALOXONE 2 MG/0.5 MG FILM PACKET SL SCH (10:05)
[2017-09-30] MEDS: PRENATAL VITAMINS W/ FOLIC ACID TABLET (FP) PO SCH (10:05)
[2017-09-30] MEDS: [UNRECOGNIZED DRUG - OTHER] TP SCH (10:07)
[2017-09-30] MEDS ORDERED: PT OWN MED DRAWER 7, Y5N ONE (10:08)
--- NOTE | 2017-09-30 14:00 | PN ---
[facility] Progress Note Note: Patient presents with c/o ongoing headache, sweating and diarrhea despite increase of suboxone to 4mg daily x 2 days. Vital Signs Temperature 97.6 F 09/30/17 07:07 Pulse Rate 75 09/30/17 07:07 Respiratory Rate 18 09/30/17 07:07 Blood Pressure 134/86 09/30/17 07:07 O2 Sat by Pulse Oximetry (%) Vital Signs Last Vital Signs Obj: awake, alert and oriented x 3. Skin moist and warm. Anxious Car: S1S2. RRR. No murmurs or gallops. HR 78 Resp: CTA BL GI: soft, BS+, NT A/P withdrawal symptoms Will increase suboxone to 8mg daily starting tomorrow. Continue all other previous medications Continue to monitor clinically.
[2017-09-30] MEDS: SUVOREXANT 15 MG TABLET PO PRN (21:23)
[2017-09-30] MEDS: MELATONIN 5 MG TABLETS PO PRN (21:23)
[2017-09-30] MEDS: hydrOXYzine PAMOATE 50 MG CAPSULE (FP) PO PRN (21:23)
[2017-09-30] MEDS: THIAMINE HCL 100 MG TABLET (FP) PO SCH (21:23)
[2017-10-01] MEDS: CLINDAMYCIN HCL 150 MG CAPSULE (FP) PO SCH (06:32)
[2017-10-01] MEDS: [UNRECOGNIZED DRUG - OTHER] TP SCH (10:01)
[2017-10-01] MEDS: PRENATAL VITAMINS W/ FOLIC ACID TABLET (FP) PO SCH (10:01)
[2017-10-01] MEDS: NICOTINE 14 MG/24 HOURS TOPICAL PATCH TD SCH (10:01)
[2017-10-01] MEDS: BUPRENORPHINE/NALOXONE 8 MG/2 MG FILM PACKET SL SCH (10:01)
[2017-10-01] MEDS: THIAMINE HCL 100 MG TABLET (FP) PO SCH (22:11)
[2017-10-01] MEDS: SUVOREXANT 15 MG TABLET PO PRN (22:12)
[2017-10-01] MEDS: hydrOXYzine PAMOATE 50 MG CAPSULE (FP) PO PRN (22:13)
[2017-10-01] MEDS: MELATONIN 5 MG TABLETS PO PRN (22:13)
[2017-10-02] MEDS: NICOTINE 14 MG/24 HOURS TOPICAL PATCH TD SCH (10:07)
[2017-10-02] MEDS: PRENATAL VITAMINS W/ FOLIC ACID TABLET (FP) PO SCH (10:07)
[2017-10-02] MEDS: BUPRENORPHINE/NALOXONE 8 MG/2 MG FILM PACKET SL SCH (10:07)
[2017-10-02] MEDS: [UNRECOGNIZED DRUG - OTHER] TP SCH (10:08)
[2017-10-02] MEDS: MELATONIN 5 MG TABLETS PO PRN (21:26)
[2017-10-02] MEDS: SUVOREXANT 15 MG TABLET PO PRN (21:26)
[2017-10-02] MEDS: THIAMINE HCL 100 MG TABLET (FP) PO SCH (21:26)
[2017-10-02] MEDS: hydrOXYzine PAMOATE 50 MG CAPSULE (FP) PO PRN (21:26)
[2017-10-03] MEDS: BUPRENORPHINE/NALOXONE 8 MG/2 MG FILM PACKET SL SCH (10:01)
[2017-10-03] MEDS: PRENATAL VITAMINS W/ FOLIC ACID TABLET (FP) PO SCH (10:01)
[2017-10-03] MEDS: NICOTINE 14 MG/24 HOURS TOPICAL PATCH TD SCH (10:01)
[2017-10-03] MEDS: [UNRECOGNIZED DRUG - OTHER] TP SCH (10:02)
[2017-10-03] MEDS: THIAMINE HCL 100 MG TABLET (FP) PO SCH (21:26)
[2017-10-03] MEDS: MELATONIN 5 MG TABLETS PO PRN (21:26)
[2017-10-03] MEDS: SUVOREXANT 15 MG TABLET PO PRN (21:27)
[2017-10-03] MEDS: hydrOXYzine PAMOATE 50 MG CAPSULE (FP) PO PRN (21:28)
[2017-10-03] MEDS: IBUPROFEN 400 MG TABLET (FP) PO PRN (23:02)
[2017-10-04] MEDS: NICOTINE 14 MG/24 HOURS TOPICAL PATCH TD SCH (10:07)
[2017-10-04] MEDS: PRENATAL VITAMINS W/ FOLIC ACID TABLET (FP) PO SCH (10:07)
[2017-10-04] MEDS: BUPRENORPHINE/NALOXONE 8 MG/2 MG FILM PACKET SL SCH (10:07)
[2017-10-04] MEDS: [UNRECOGNIZED DRUG - OTHER] TP SCH (10:08)
[2017-10-04] MEDS: MELATONIN 5 MG TABLETS PO PRN (21:37)
[2017-10-04] MEDS: SUVOREXANT 15 MG TABLET PO PRN (21:37)
[2017-10-04] MEDS: hydrOXYzine PAMOATE 50 MG CAPSULE (FP) PO PRN (21:37)
[2017-10-04] MEDS: THIAMINE HCL 100 MG TABLET (FP) PO SCH (21:37)
[2017-10-05] MEDS: BUPRENORPHINE/NALOXONE 8 MG/2 MG FILM PACKET SL SCH (09:43)
[2017-10-05] MEDS: PRENATAL VITAMINS W/ FOLIC ACID TABLET (FP) PO SCH (09:43)
[2017-10-05] MEDS: NICOTINE 14 MG/24 HOURS TOPICAL PATCH TD SCH (09:43)
[2017-10-05] MEDS: [UNRECOGNIZED DRUG - OTHER] TP SCH (09:43)
[2017-10-05] MEDS: THIAMINE HCL 100 MG TABLET (FP) PO SCH (21:34)
[2017-10-05] MEDS: MELATONIN 5 MG TABLETS PO PRN (21:35)
[2017-10-05] MEDS: SUVOREXANT 15 MG TABLET PO PRN (21:36)
[2017-10-05] MEDS: hydrOXYzine PAMOATE 50 MG CAPSULE (FP) PO PRN (21:36)
[2017-10-06] MEDS ORDERED: PT OWN MED DRAWER 7, Y5N ONE ×2 (08:52→14:27)
[2017-10-06] MEDS: BUPRENORPHINE/NALOXONE 8 MG/2 MG FILM PACKET SL SCH (10:07)
[2017-10-06] MEDS: NICOTINE 14 MG/24 HOURS TOPICAL PATCH TD SCH (10:07)
[2017-10-06] MEDS: [UNRECOGNIZED DRUG - OTHER] TP SCH (10:07)
[2017-10-06] MEDS: PRENATAL VITAMINS W/ FOLIC ACID TABLET (FP) PO SCH (10:07)
[2017-10-06] MEDS: hydrOXYzine PAMOATE 50 MG CAPSULE (FP) PO PRN (21:46)
[2017-10-06] MEDS: THIAMINE HCL 100 MG TABLET (FP) PO SCH (21:46)
[2017-10-06] MEDS: SUVOREXANT 15 MG TABLET PO PRN (21:47)
[2017-10-06] MEDS: MELATONIN 5 MG TABLETS PO PRN (21:47)
[2017-10-07] MEDS: BUPRENORPHINE/NALOXONE 8 MG/2 MG FILM PACKET SL SCH (10:13)
[2017-10-07] MEDS: PRENATAL VITAMINS W/ FOLIC ACID TABLET (FP) PO SCH (10:13)
[2017-10-07] MEDS: NICOTINE 14 MG/24 HOURS TOPICAL PATCH TD SCH (10:14)
[2017-10-07] MEDS: [UNRECOGNIZED DRUG - OTHER] TP SCH (10:14)
--- NOTE | 2017-10-07 14:41 | PN ---
S Progress Note Note: Patient presents with c/o sweating, anxiety and irritability in the evening. States prior next dose of suboxone he feels like he is jumping out of his skin. Vital Signs Temperature 97.8 F 10/07/17 06:46 Pulse Rate 78 10/07/17 06:46 Respiratory Rate 18 10/07/17 06:46 Blood Pressure 120/70 10/07/17 06:46 O2 Sat by Pulse Oximetry (%) Obj: Pt is alert and oriented x 3. In NAD. Palms moist. Ambulating in unit without assistance. Ext without edema. +anxiety. A/P Withdrawal symptoms Will increase suboxone to 16mg daily continue to monitor clinically
[2017-10-07] MEDS: SUVOREXANT 15 MG TABLET PO PRN (21:30)
[2017-10-07] MEDS: hydrOXYzine PAMOATE 50 MG CAPSULE (FP) PO PRN (21:30)
[2017-10-07] MEDS: MELATONIN 5 MG TABLETS PO PRN (21:30)
[2017-10-07] MEDS: THIAMINE HCL 100 MG TABLET (FP) PO SCH (21:30)
[2017-10-07] MEDS ORDERED: SUVOREXANT 15 MG TABLET PO PRN (22:00)
--- NOTE | 2017-10-08 06:51 | PN ---
Psychiatric Progress Note Vital Signs: Vital Signs Period Temp Pulse Resp BP Sys/Lantigua Pulse Ox Last 24 Hr Date of Session: 10/08/17 Chief Complaint:: Discharge Note HPI: Patient addressing Opioid and Sedatve Dependence comorbid with Nicotine Depebndence, Substance-Induced Mood Disorder and Subtance-Induced Sleep Disorder ROS: Cellulitis Current Medications: Active Medications Generic Name Dose Route Start Last Admin Trade Name Freq PRN Reason Stop Dose Admin Acetaminophen 650 mg 09/24/17 13:41 09/26/17 06:23 Tylenol - PO 650 mg Q4H PRN Administration FEVER Al Hydroxide/Mg Hydroxide 30 ml 09/24/17 13:41 Mylanta Oral Suspension - PO Q6H PRN DYSPEPSIA Buprenorphine/Naloxone 1 each 10/08/17 10:00 Suboxone 12 Mg-3 Mg Sl Film SL DAILY [facility] Eucalyptus/Menthol/Phenol/Sorbitol 1 each 09/24/17 13:41 Cepastat Lozenge - MM Q4H PRN SORE THROAT Guaifenesin 10 ml 09/24/17 13:41 Robitussin Dm - PO Q6H PRN COUGH Hydroxyzine Pamoate 50 mg 09/24/17 13:41 10/07/17 21:30 Vistaril - PO 50 mg Q4H PRN Administration AGITATION Ibuprofen 400 mg 09/24/17 13:41 10/03/17 23:02 Motrin - PO 400 mg Q6H PRN Administration Pain Level 4-6 Loperamide HCl 4 mg 09/24/17 13:41 Imodium - PO Q6H PRN DIARRHEA Magnesium Citrate 300 ml 09/24/17 13:41 Citroma - PO Q48H PRN CONSTIPATION Magnesium Hydroxide 30 ml 09/24/17 13:41 Milk Of Magnesia - PO DAILY PRN CONSTIPATION Melatonin 5 mg 09/24/17 22:00 10/07/17 21:30 Melatonin PO 5 mg HS PRN Administration INSOMNIA Nicotine 14 mg 09/24/17 14:00 10/07/17 10:14 Nicoderm Patch - TD Not Given DAILY [facility] Nicotine Polacrilex 2 mg 09/24/17 13:41 Nicorette Gum - BUC Q2H PRN NICOTINE REPLACEMENT RX Non-Formulary Medication 1 applic 09/25/17 10:00 10/07/17 10:14 Gel Dressing [Solosite] TP 1 applic DAILY FITZ Administration Multivit/Folic Acid/Iron 1 tab 09/25/17 10:00 10/07/17 10:13 Vitamins (Sjr) - PO 1 tab DAILY FITZ Administration Pseudoephedrine/Triprolidine 1 combo 09/24/17 13:41 Actifed - PO TID PRN NASAL CONGESTION Suvorexant 15 mg 10/07/17 22:00 Belsomra PO 10/10/17 21:59 HS PRN INSOMNIA Thiamine HCl 100 mg 09/24/17 22:00 10/07/17 21:30 Vitamin B1 - PO 100 mg HS FITZ Administration Current Side Effect: No Lab tests ordered: Yes Lab tests reviewed: Yes Provider note:: Patient will complete this program on 10/09/17. He has met his treatment goals and will continue to address his issues in outpatient treatment at [facility].Told health underwriter that from his participation in this program, he has learned the importance of establising a sober support network to mantain sobriety. He responded well to Belsomra prn for insomnia. He is stable for discharge on 10/09/17 Total face to face time:: 35 Mental Status Exam - Mental Status Exam Alert and Oriented to: Time, Place, Person Cognitive Function: Fair Patient Appearance: Well Groomed Mood: Hopeful, Euthymic Affect: Appropriate Patient Behavior: Cooperative Speech Pattern: Clear Voice Loudness: Normal Thought Process: Intact, Goal Oriented Thought Disorder: Not Present Hallucinations: Denies Suicidal Ideation: Denies Homicidal Ideation: Denies Insight/Judgement: Fair Sleep: Fair Appetite: Good Muscle strength/Tone: Normal Gait/Station: Normal Psychiatric Treatment Plan - Problem List (1) Opioid dependence Current Visit: Yes Qualifiers: Substance use status: uncomplicated Qualified Code(s): F11.20 - Opioid dependence, uncomplicated (2) Sedative hypnotic or anxiolytic dependence Current Visit: Yes (3) Nicotine dependence Current Visit: Yes Qualifiers: Nicotine product type: cigarettes Substance use status: in withdrawal Qualified Code(s): F17.213 - Nicotine dependence, cigarettes, with withdrawal (4) Substance induced mood disorder Current Visit: Yes (5) Substance-induced sleep disorder Current Visit: Yes (6) Cellulitis Current Visit: Yes Qualifiers: Site of cellulitis: extremity Site of cellulitis of extremity: upper extremity Laterality: right Qualified Code(s): L03.113 - Cellulitis of right upper limb Initial treatment plan: Patient will be discharged tomorrow and referred to [facility] for outpatient treatment
[2017-10-08] MEDS ORDERED: PT OWN MED DRAWER 7, Y5N ONE (09:11)
[2017-10-08] MEDS ORDERED: BUPRENORPHINE/NALOXONE 8 MG/2 MG FILM PACKET SL SCH ×2 (10:00→22:00)
[2017-10-08] MEDS ORDERED: BUPRENORPHINE/NALOXONE 2 MG/0.5 MG FILM PACKET SL SCH (10:00)
[2017-10-08] MEDS ORDERED: BUPRENORPHINE HCL/NALOXONE 12 MG-3 MG SL FILM PACKET SL SCH (10:00)
[2017-10-08] MEDS: PRENATAL VITAMINS W/ FOLIC ACID TABLET (FP) PO SCH (10:01)
[2017-10-08] MEDS: [UNRECOGNIZED DRUG - OTHER] TP SCH (10:01)
[2017-10-08] MEDS: NICOTINE 14 MG/24 HOURS TOPICAL PATCH TD SCH (10:01)
--- NOTE | 2017-10-08 13:41 | PN ---
[facility] Progress Note Note: Patient c/o to complain of protracted withdrawal symptoms: anxious chills and sweats. Vital Signs Temperature 97.7 F 10/08/17 07:16 Pulse Rate 66 10/08/17 07:16 Respiratory Rate 18 10/08/17 07:16 Blood Pressure 128/78 10/08/17 07:16 O2 Sat by Pulse Oximetry (%) A/P AOx3, anxious Ambulating in the unit Normal HR No adventitious breath sounds One time dose of Suboxone off 4mg add on for today for total 16mg for today to improve symptoms Continue Suboxone 16mg in divided dose of 8mg AM and 8mg PM starting 10/09/17 Patient reports plan to attend out patient program at [facility]
[2017-10-08] MEDS ORDERED: BUPRENORPHINE/NALOXONE 2 MG/0.5 MG FILM PACKET SL ONE (14:00)
[2017-10-08] MEDS: THIAMINE HCL 100 MG TABLET (FP) PO SCH (21:31)
[2017-10-08] MEDS: hydrOXYzine PAMOATE 50 MG CAPSULE (FP) PO PRN (21:31)
[2017-10-08] MEDS: MELATONIN 5 MG TABLETS PO PRN (21:31)
[2017-10-09 06:43] VITALS: BP 134/75; PULSE 68; TEMP 97.8
[2017-10-09] MEDS: PRENATAL VITAMINS W/ FOLIC ACID TABLET (FP) PO SCH (09:57)
[2017-10-09] MEDS: NICOTINE 14 MG/24 HOURS TOPICAL PATCH TD SCH (09:58)
[2017-10-09] MEDS ORDERED: BUPRENORPHINE/NALOXONE 8 MG/2 MG FILM PACKET SL SCH (10:00)
[2017-10-09] MEDS ORDERED: PT OWN MED DRAWER 7, Y5N ONE (10:51)
== END 2017-10-09 10:15 | disposition home or self-care (01) | DRG 772 ==
LOC: YASAS 13:22 → Y3W 13:28
PROVIDERS: ADMIT Psychiatry & Neurology Psychiatry; ATTEND Psychiatry & Neurology Psychiatry
PROC: HZ42ZZZ Group Counseling for Substance Abuse Treatment, Cognitive-Behavioral (ICD-10-PCS; principal; 2017-09-24)
DX: F11.20 Opioid dependence, uncomplicated (principal); F13.230 Sedative, hypnotic or anxiolytic dependence with withdrawal, uncomplicated; F17.210 Nicotine dependence, cigarettes, uncomplicated; F19.24 Other psychoactive substance dependence with psychoactive substance-induced mood disorder; F19.282 Other psychoactive substance dependence with psychoactive substance-induced sleep disorder; L03.113 Cellulitis of right upper limb; Z51.81 Encounter for therapeutic drug level monitoring

== ENCOUNTER 2018-01-23 10:04 | Inpatient (IN) | payer OTHER ==
[2018-01-23 10:20] VITALS: BMI 21.5
--- NOTE | 2018-01-23 15:43 | HP ---
COWS - Scale Resting Pulse: 0= [place] 80 or Below Sweatin= Chills/Flushing Restless Observation: 1= Difficult to Sit Still Pupil Size: 0= Normal to Room Light Bone or Joint Aches: 2= Severe Diffuse Aches Runny Nose/ Eye Tearin= Runny Nose/Eyes GI Upset > 30mins: 2= Nausea/Diarrhea Tremor Observation: 2= Slight Tremor Visible Yawning Observation: 2= >3x During Session Anxiety or Irritability: 2=Irritable/Anxious Goose Flesh Skin: 3=Piloerection COWS Score: 17 CIWA Score - CIWA Score Nausea/Vomitin-Mild Nausea/No Vomiting Muscle Tremors: 4-Moderate,w/Arms Extend Anxiety: 4-Mod. Anxious/Guarded Agitation: 4-Moderately Restless Paroxysmal Sweats: 1-Minimal Palms Moist Orientation: 0-Oriented Tacttile Disturbances: 1-Very Mild Itch/Numbness Auditory Disturbances: 0-None Visual Disturbances: 0-None Headache: 1-Very Mild CIWA-Ar Total Score: 16 Admission ROS S - HPI Chief Complaint: xanax and heroin withdrawal sx Allergies/Adverse Reactions: Allergies Allergy/AdvReac Type Severity Reaction Status Date / Time No Known Allergies Allergy Verified 01/23/18 11:36 History of Present Illness: 37 years old male with long history of xanax heroin nicotine dependence has weight loss and anxiety is admitted to detox Exam Limitations: No Limitations - Ebola screening Have you traveled outside of the country in the last 21 days: No Have you had contact with anyone from an Ebola affected area: No Have you been sick,other than usual withdrawal symptoms: No Do you have a fever: No - Review of Systems Constitutional: Loss of Appetite, Changes in sleep, Unintentional Wgt. Loss, Unexplained wgt Loss EENT: reports: No Symptoms Reported Respiratory: reports: No Symptoms reported Cardiac: reports: No Symptoms Reported GI: reports: Nausea, Poor Appetite, Poor Fluid Intake, Abdominal cramping : reports: No Symptoms Reported Musculoskeletal: reports: Back Pain, Joint Pain, Muscle Pain, Neck Pain Integumentary: reports: Change in Color (arms fingers) Neuro: reports: Tremors Endocrine: reports: No Symptoms Reported Hematology: reports: No Symptoms Reported Psychiatric: reports: Judgement Intact, Orientated x3, Anxious, Depressed Other Systems: Reviewed and Negative Patient History - Patient Medical History Hx Anemia: No Hx Asthma: No Hx Chronic Obstructive Pulmonary Disease (COPD): No Hx Cancer: No Hx Cardiac Disorders: No Hx Congestive Heart Failure: No Hx Hypertension: No Hx Hypercholesterolemia: No Hx Pacemaker: No HX Cerebrovascular Accident: No Hx Seizures: No Hx Dementia: No Hx Diabetes: No Hx Gastrointestinal Disorders: No Hx Liver Disease: No Hx Genitourinary Disorders: No Hx Sexually Transmitted Disorders: No Hx Renal Disease (ESRD): No Hx Thyroid Disease: No Hx Human Immunodeficiency Virus (HIV): No (10/15 negative) Hx Hepatitis C: No Hx Depression: Yes Hx Suicide Attempt: No Hx Bipolar Disorder: No Hx Schizophrenia: No - Patient Surgical History Past Surgical History: No Hx Neurologic Surgery: No Hx Cataract Extraction: No Hx Cardiac Surgery: No Hx Lung Surgery: No Hx Breast Surgery: No Hx Breast Biopsy: No Hx Abdominal Surgery: No Hx Appendectomy: No Hx Cholecystectomy: No Hx Genitourinary Surgery: No Hx Orthopedic Surgery: No - PPD History Previous Implant?: Yes Documented Results: Negative w/o proof Implanted On Prior R Admission?: Yes Date: 01/18/17 Results: 0 mm PPD to be Administered?: No - Smoking Cessation Smoking history: Current every day smoker Have you smoked in the past 12 months: Yes Aproximately how many cigarettes per day: 10 Cigars Per Day: 0 Hx Chewing Tobacco Use: No Initiated information on smoking cessation: Yes 'Breaking Loose' booklet given: 01/23/18 - Substance & Tx. History Hx Alcohol Use: No Hx Substance Use: Yes Substance Use Type: Heroin, Opiates, Tranquilizers Hx Substance Use Treatment: Yes (08/2017 [facility] - Substances Abused Heroin Route: Injection Frequency: Daily Amount used: 2 grams Age of first use: 33 Date of Last Use: 01/23/18 Alprazolam (Xanax) Route: Injection Frequency: Daily Amount used: 6-8mg Age of first use: 32 Date of Last Use: 01/23/18 Family Disease History - Family Disease History Family Disease History: Other: Father ( elizabeth) Admission Physical Exam [facility] - Vital Signs Vital Signs: Vital Signs - 24 hr 01/23/18 10:18 Temperature 97.6 F Pulse Rate 70 Respiratory 17 Rate Blood Pressure 102/63 - Physical General Appearance: Yes: Appropriately Dressed, Mild Distress, Thin, Tremorous, Irritable, Sweating, Anxious HEENTM: Yes: Hearing grossly Normal, Normocephalic, Normal Voice Respiratory: Yes: Chest Non-Tender, Lungs Clear, Normal Breath Sounds, No Respiratory Distress, No Accessory Muscle Use Neck: Yes: Supple, Trachea in good position Breast: Yes: Breasts Symetrical, No Discharge Cardiology: Yes: Regular Rhythm, Regular Rate, S1, S2 Abdominal: Yes: Normal Bowel Sounds, Non Tender, Flat, Soft Genitourinary: Yes: Within Normal Limits Back: Yes: Normal Inspection Musculoskeletal: Yes: full range of Motion, Gait Steady, Back pain, Muscle Pain Extremities: Yes: Normal Range of Motion, Non-Tender, Tremors Neurological: Yes: Fully Oriented, Alert, Motor Strength 5/5, Normal Response, Depressed Affect Integumentary: Yes: Warm, Track Villanueva (ARMS) Lymphatic: Yes: Within Normal Limits - Diagnostic (1) Weight loss Current Visit: Yes Status: Acute (2) Anxiety with depression Current Visit: Yes Status: Suspected (3) Sedative hypnotic or anxiolytic dependence Current Visit: Yes Status: Acute (4) Nicotine dependence Current Visit: Yes Status: Acute Qualifiers: Nicotine product type: cigarettes Substance use status: in withdrawal Qualified Code(s): F17.213 - Nicotine dependence, cigarettes, with withdrawal (5) Opioid dependence with withdrawal Current Visit: Yes Status: Acute Cleared for Admission [facility] - Detox or Rehab [facility] Level of Care: Medically Managed Detox Regimen/Protocol: Methadone/Valium [facility] Breath Alcohol Content Breath Alcohol Content: 0 Urine Drug Screen - Results Drug Screen Negative: No Urine Drug Screen Results: OPI-Opiates, BZO-Benzodiazepines, OXY-Oxycodone
[2018-01-23] MEDS ORDERED: MENTHOL/PHENOL 1 EACH UD MM PRN (15:44)
[2018-01-23] MEDS ORDERED: MAGNESIUM HYDROX 2400MG/30ML ORAL SUSPENSION 30 ML CUP PO PRN (15:44)
[2018-01-23] MEDS ORDERED: NICOTINE POLACRILEX 2 MG GUM BC PRN (15:44)
[2018-01-23] MEDS ORDERED: ACETAMINOPHEN 325 MG TABLET (FP) PO PRN (15:44)
[2018-01-23] MEDS ORDERED: guaiFENesin/D-METHORPHAN HB 10 ML UNIT-DOSE CUPS PO PRN (15:44)
[2018-01-23] MEDS ORDERED: MAG HYDROX/AL HYDROX/SIMETH 30 ML UNIT-DOSE CUP PO PRN (15:44)
[2018-01-23] MEDS ORDERED: P-EPHED 60MG/TRIPROLIDI 2.5MG TABLET PO PRN (15:44)
[2018-01-23] MEDS ORDERED: LOPERAMIDE HCL 2 MG CAPSULE PO PRN (15:44)
[2018-01-23] MEDS ORDERED: diazePAM 5 MG TABLET PO PRN (15:44)
[2018-01-23] MEDS ORDERED: MAGNESIUM CITRATE 300 ML BOTTLE PO PRN (15:44)
[2018-01-23] MEDS ORDERED: METHADONE HCL 10 MG TABLET (FOR DETOX USE ONLY) PO ONE ×2 (16:00→23:00)
[2018-01-23] MEDS ORDERED: diazePAM 5 MG TABLET PO ONE (16:00)
[2018-01-23] MEDS: BACLOFEN 10 MG TABLET (FP) PO SCH ×2 (17:25→22:32)
[2018-01-23] MEDS: NICOTINE 14 MG/24 HOURS TOPICAL PATCH TD SCH (17:26)
[2018-01-23] MEDS ORDERED: MELATONIN 5 MG TABLETS PO PRN (22:00)
[2018-01-23] MEDS: THIAMINE HCL 100 MG TABLET (FP) PO SCH (22:32)
[2018-01-23] MEDS: diazePAM 5 MG TABLET PO SCH (22:32)
[2018-01-23 23:58] LABS: URINE APPEARANCE CLEAR; URINE BILIRUBIN NEGATIVE (<2.0 mg/dL); URINE COLOR YELLOW; URINE GLUCOSE (UA) NEGATIVE (NEGATIVE); URINE KETONE NEGATIVE (NEGATIVE); URINE LEUK ESTERASE NEGATIVE (NEGATIVE); URINE NITRITE NEGATIVE (NEGATIVE); URINE PROTEIN NEGATIVE (NEGATIVE); URINE UROBILINOGEN NEGATIVE mg/dL (0.2-1.0)
[2018-01-24] MEDS: BACLOFEN 10 MG TABLET (FP) PO SCH ×3 (05:51→22:37)
[2018-01-24] MEDS: diazePAM 5 MG TABLET PO SCH ×3 (05:51→22:37)
[2018-01-24] MEDS ORDERED: METHADONE HCL 10 MG TABLET (FOR DETOX USE ONLY) PO SCH (10:00)
[2018-01-24 10:01] LABS: HEMATOCRIT 37.1 % (35.4-49); HEMOGLOBIN 12.3 GM/dL (11.7-16.9); MCHC 33.1 g/dl (32.0-35.9); MEAN CELL VOLUME 84.5 fl (80-96); MEAN PLT VOLUME 10.2 fl (7.5-11.1); PLATELET COUNT 183 K/MM3 (134-434); RBC 4.39 M/mm3 (4.00-5.60); RDW 14.3 % (11.9-15.9); WHITE BLOOD COUNT 13.9 K/mm3 (4.0-10.0)
[2018-01-24 10:05] LABS: ALBUMIN 3.2 g/dl (3.4-5.0); ANION GAP 10 (8-16); BLOOD UREA NITROGEN 14 mg/dL (7-18); CALCIUM 8.9 mg/dL (8.5-10.1); CHLORIDE 102 mmol/L (98-107); CO2 29 mmol/L (21-32); GLUCOSE,RANDOM 111 mg/dL (74-106); POTASSIUM 3.6 mmol/L (3.5-5.1); SODIUM 141 mmol/L (136-145)
[2018-01-24 10:07] LABS: ALK PHOS 127 U/L (45-117); BILIRUBIN,TOTAL 0.4 mg/dL (0.2-1.0); CREATININE 0.7 mg/dL (0.7-1.3); SGOT/AST 50 U/L (15-37); SGPT/ALT 61 U/L (12-78); TOT PROT 7.5 g/dl (6.4-8.2)
[2018-01-24] MEDS: PRENATAL VITAMINS W/ FOLIC ACID TABLET (FP) PO SCH (10:30)
[2018-01-24] MEDS: NICOTINE 14 MG/24 HOURS TOPICAL PATCH TD SCH (10:39)
[2018-01-24] MEDS ORDERED: TRIMETHOBENZAMIDE HCL 200MG/2ML INJ IM PRN (13:36)
--- NOTE | 2018-01-24 13:40 | PN ---
[facility] CIWA - CIWA Score Nausea/Vomitin-No Nausea/No Vomiting Muscle Tremors: 3 Anxiety: 4-Mod. Anxious/Guarded Agitation: 3 Paroxysmal Sweats: 3 Orientation: 0-Oriented Tacttile Disturbances: 3-Moderate Itch/Numb/Burn Auditory Disturbances: 0-None Visual Disturbances: 1-Very Mild Sensitivity Headache: 0-None Present CIWA-Ar Total Score: 17 S COWS - Scale Resting Pulse: 0= [place] 80 or Below Sweatin= Chills/Flushing Restless Observation: 0= Sits Still Pupil Size: 0= Normal to Room Light Bone or Joint Aches: 2= Severe Diffuse Aches Runny Nose/ Eye Tearin= None GI Upset > 30mins: 0= None Tremor Observation of Outstretched Hands: 2= Slight Tremor Visible Yawning Observation: 2= >3x During Session Anxiety or Irritability: 2=Irritable/Anxious Goose Flesh Skin: 3=Piloerection COWS Score: 12 S Progress Note (SOAP) Subjective: Body Aches, Fatigue, Anxious, Sweating. Objective: PATIENT A & O X 3. NO ACUTE DISTRESS. 01/24/18 13:38 Vital Signs Temperature 96.9 F L 01/24/18 13:11 Pulse Rate 76 01/24/18 13:11 Respiratory Rate 16 01/24/18 13:11 Blood Pressure 131/69 01/24/18 13:11 O2 Sat by Pulse Oximetry (%) Laboratory Tests 01/23/18 01/24/18 01/24/18 10:53 06:00 06:00 WBC 13.9 H RBC 4.39 Hgb 12.3 Hct 37.1 MCV 84.5 MCH 28.0 MCHC 33.1 RDW 14.3 Plt Count 183 D MPV 10.2 D Sodium 141 Potassium 3.6 Chloride 102 Carbon Dioxide 29 Anion Gap 10 BUN 14 Creatinine 0.7 Creat Clearance w eGFR > 60 Random Glucose 111 H Calcium 8.9 Total Bilirubin 0.4 AST 50 H D ALT 61 D Alkaline Phosphatase 127 H Total Protein 7.5 Albumin 3.2 L Urine Color Yellow Urine Appearance Clear Urine pH 6.0 Ur Specific [place] 1.024 Urine Protein Negative Urine Glucose (UA) Negative Urine Ketones Negative Urine Blood Negative Urine Nitrite Negative Urine Bilirubin Negative Urine Urobilinogen Negative Ur Leukocyte Esterase Negative RPR Titer 01/24/18 06:00 WBC RBC Hgb Hct MCV MCH MCHC RDW Plt Count MPV Sodium Potassium Chloride Carbon Dioxide Anion Gap BUN Creatinine Creat Clearance w eGFR Random Glucose Calcium Total Bilirubin AST ALT Alkaline Phosphatase Total Protein Albumin Urine Color Urine Appearance Urine pH Ur Specific [place] Urine Protein Urine Glucose (UA) Urine Ketones Urine Blood Urine Nitrite Urine Bilirubin Urine Urobilinogen Ur Leukocyte Esterase RPR Titer Nonreactive LABS NOTED. 01/24/18 13:39 Assessment: 01/24/18 13:38 WITHDRAWAL SYMPTOMS. Plan: CONTINUE DETOX. INCREASE DAILY PO FLUID INTAKE.
[2018-01-24] MEDS: IBUPROFEN 400 MG TABLET (FP) PO PRN (13:45)
--- NOTE | 2018-01-24 18:44 | CONSULT ---
[facility] Psychiatric Consult - Data Date of interview: 01/24/18 Admission source: [facility] Identifying data: Readmission t [facility] for this 37 y/o [place]-born male seeking detox treatment on for heroin and xanax dependence.Patient is single,a father of five,domiciled and employed prior to this [facility] visit. Substance Abuse History: Confirmed by patient in my interview.Details in current [facility] report : Smoking history: Current every day smoker. Have you smoked in the past 12 months: Yes. Aproximately how many cigarettes per day: 10. Cigars Per Day: 0. Hx Chewing Tobacco Use: No. Initiated information on smoking cessation: Yes. 'Breaking Loose' booklet given: 01/23/18. - Substance & Tx. History. Hx Alcohol Use: No. Hx Substance Use: Yes. Substance Use Type : Heroin, Opiates, Tranquilizers. Hx Substance Use Treatment: Yes (08/2017 [facility]). - Substances Abused. Heroin. Route: Injection. Frequency: Daily. Amount used: 2 grams. Age of first use: 33. Date of Last Use: . Alprazolam (Xanax). Route: Injection. Frequency: Daily. Amount used: 6-8mg. Age of first use: 32. Date of Last Use: 01/23/18 Medical History: Chronic lumbar pain. Psychiatric History: Patient denies. Physical/Sexual Abuse/Trauma History: Patient denies. Additional Comment: Urine Drug Screen Results: OPI-Opiates, BZO-Benzodiazepines , OXY-Oxycodone.Noted. Mental Status Exam - Mental Status Exam Alert and Oriented to: Time, Place, Person Cognitive Function: Good Patient Appearance: Unkempt, Disheveled Mood: Nervous, Withdrawn Affect: Mood Congruent, Constricted Patient Behavior: Fatigued, Cooperative Speech Pattern: Clear Voice Loudness: Normal Thought Process: Goal Oriented Thought Disorder: Not Present Hallucinations: Denies Suicidal Ideation: Denies Homicidal Ideation: Denies Insight/Judgement: Poor Sleep: Poorly, Difficulty falling asleep Appetite: Good Muscle strength/Tone: Normal Gait/Station: Normal Psychiatric Findings - Problem List ([place] 1, 2,3) (1) Opioid dependence with withdrawal Current Visit: Yes Status: Acute (2) Sedative hypnotic or anxiolytic dependence Current Visit: Yes Status: Acute (3) Nicotine dependence Current Visit: Yes Status: Acute Qualifiers: Nicotine product type: cigarettes Substance use status: in withdrawal Qualified Code(s): F17.213 - Nicotine dependence, cigarettes, with withdrawal (4) Substance induced mood disorder Current Visit: Yes Status: Acute (5) Insomnia Current Visit: Yes Status: Acute - Initial Treatment Plan Initial Treatment Plan: Psychoeducation.Sleep hygiene.Detoxification.Ambien 10 mg po hs prn.Patient is informed of the risk of parasomnias.Agrees to this careplan.Observation.
[2018-01-24] MEDS: THIAMINE HCL 100 MG TABLET (FP) PO SCH (22:37)
[2018-01-25] MEDS: BACLOFEN 10 MG TABLET (FP) PO SCH ×3 (06:48→22:46)
[2018-01-25] MEDS: PRENATAL VITAMINS W/ FOLIC ACID TABLET (FP) PO SCH (10:54)
[2018-01-25] MEDS: METHADONE HCL 5 MG TABLET (FOR DETOX USE ONLY) PO SCH (10:54)
[2018-01-25] MEDS: NICOTINE 14 MG/24 HOURS TOPICAL PATCH TD SCH (10:54)
[2018-01-25] MEDS: diazePAM 5 MG TABLET PO SCH ×2 (10:54→22:46)
--- NOTE | 2018-01-25 18:48 | PN ---
S CIWA - CIWA Score Nausea/Vomitin-Int. Nausea w/Dry Heave Muscle Tremors: None Anxiety: 4-Mod. Anxious/Guarded Agitation: 1-Slight > Activity Paroxysmal Sweats: 3 Orientation: 0-Oriented Tacttile Disturbances: 1-Very Mild Itch/Numbness Auditory Disturbances: 0-None Visual Disturbances: 2-Mild Sensitivity Headache: 0-None Present CIWA-Ar Total Score: 15 S COWS - Scale Resting Pulse: 0= [place] 80 or Below Sweatin= Chills/Flushing Restless Observation: 0= Sits Still Pupil Size: 0= Normal to Room Light Bone or Joint Aches: 2= Severe Diffuse Aches Runny Nose/ Eye Tearin= None GI Upset > 30mins: 2= Nausea/Diarrhea Tremor Observation of Outstretched Hands: 0= None Yawning Observation: 2= >3x During Session Anxiety or Irritability: 2=Irritable/Anxious Goose Flesh Skin: 3=Piloerection COWS Score: 12 S Progress Note (SOAP) Subjective: Body Aches, Fatigue, Interrupted Sleep, Sweating, Poor Appetite. Objective: PATIENT A & O X 3. NO ACUTE DISTRESS. 01/25/18 18:46 Laboratory Tests 01/23/18 01/24/18 01/24/18 10:53 06:00 06:00 WBC 13.9 H RBC 4.39 Hgb 12.3 Hct 37.1 MCV 84.5 MCH 28.0 MCHC 33.1 RDW 14.3 Plt Count 183 D MPV 10.2 D Sodium 141 Potassium 3.6 Chloride 102 Carbon Dioxide 29 Anion Gap 10 BUN 14 Creatinine 0.7 Creat Clearance w eGFR > 60 Random Glucose 111 H Calcium 8.9 Total Bilirubin 0.4 AST 50 H D ALT 61 D Alkaline Phosphatase 127 H Total Protein 7.5 Albumin 3.2 L Urine Color Yellow Urine Appearance Clear Urine pH 6.0 Ur Specific [place] 1.024 Urine Protein Negative Urine Glucose (UA) Negative Urine Ketones Negative Urine Blood Negative Urine Nitrite Negative Urine Bilirubin Negative Urine Urobilinogen Negative Ur Leukocyte Esterase Negative RPR Titer 01/24/18 06:00 WBC RBC Hgb Hct MCV MCH MCHC RDW Plt Count MPV Sodium Potassium Chloride Carbon Dioxide Anion Gap BUN Creatinine Creat Clearance w eGFR Random Glucose Calcium Total Bilirubin AST ALT Alkaline Phosphatase Total Protein Albumin Urine Color Urine Appearance Urine pH Ur Specific [place] Urine Protein Urine Glucose (UA) Urine Ketones Urine Blood Urine Nitrite Urine Bilirubin Urine Urobilinogen Ur Leukocyte Esterase RPR Titer Nonreactive LABS NOTED. Assessment: 01/25/18 18:46 WITHDRAWAL SYMPTOMS. LEUKOCYTOSIS. 01/25/18 18:47 Plan: CONTINUE DETOX. INCREASE DAILY PO FLUID INTAKE. ENCOURAGE AMBULATION. PRN TIGAN IM FOR NAUSEA / VOMITING.
[2018-01-25] MEDS: THIAMINE HCL 100 MG TABLET (FP) PO SCH (22:46)
[2018-01-25] MEDS: ZOLPIDEM TARTRATE 10 MG TABLET (PARK CARE ONLY) PO PRN (22:46)
[2018-01-26] MEDS: BACLOFEN 10 MG TABLET (FP) PO SCH ×3 (08:15→22:33)
[2018-01-26] MEDS: METHADONE HCL 5 MG TABLET (FOR DETOX USE ONLY) PO SCH (10:42)
[2018-01-26] MEDS: diazePAM 5 MG TABLET PO SCH ×2 (10:42→22:34)
[2018-01-26] MEDS: PRENATAL VITAMINS W/ FOLIC ACID TABLET (FP) PO SCH (10:42)
[2018-01-26] MEDS: NICOTINE 14 MG/24 HOURS TOPICAL PATCH TD SCH (10:43)
[2018-01-26] MEDS: IBUPROFEN 400 MG TABLET (FP) PO PRN (10:43)
--- NOTE | 2018-01-26 17:23 | PN ---
[facility] Progress Note (SOAP) Subjective: pt states he is doing well, wants to go to rehab Objective: 01/26/18 17:22 Vital Signs - 24 hr 01/25/18 01/25/18 01/26/18 18:30 22:59 03:37 Temperature 97.4 F L 97.5 F L Pulse Rate 50 L 42 L Respiratory 18 18 16 Rate Blood Pressure 107/62 113/69 01/26/18 01/26/18 01/26/18 06:38 09:27 13:42 Temperature 97.8 F 97.3 F L 97.5 F L Pulse Rate 42 L 42 L 42 L Respiratory 18 18 18 Rate Blood Pressure 101/63 116/71 114/69 Laboratory Tests 01/23/18 01/24/18 01/24/18 10:53 06:00 06:00 WBC 13.9 H RBC 4.39 Hgb 12.3 Hct 37.1 MCV 84.5 MCH 28.0 MCHC 33.1 RDW 14.3 Plt Count 183 D MPV 10.2 D Sodium 141 Potassium 3.6 Chloride 102 Carbon Dioxide 29 Anion Gap 10 BUN 14 Creatinine 0.7 Creat Clearance w eGFR > 60 Random Glucose 111 H Calcium 8.9 Total Bilirubin 0.4 AST 50 H D ALT 61 D Alkaline Phosphatase 127 H Total Protein 7.5 Albumin 3.2 L Urine Color Yellow Urine Appearance Clear Urine pH 6.0 Ur Specific [place] 1.024 Urine Protein Negative Urine Glucose (UA) Negative Urine Ketones Negative Urine Blood Negative Urine Nitrite Negative Urine Bilirubin Negative Urine Urobilinogen Negative Ur Leukocyte Esterase Negative RPR Titer 01/24/18 06:00 WBC RBC Hgb Hct MCV MCH MCHC RDW Plt Count MPV Sodium Potassium Chloride Carbon Dioxide Anion Gap BUN Creatinine Creat Clearance w eGFR Random Glucose Calcium Total Bilirubin AST ALT Alkaline Phosphatase Total Protein Albumin Urine Color Urine Appearance Urine pH Ur Specific [place] Urine Protein Urine Glucose (UA) Urine Ketones Urine Blood Urine Nitrite Urine Bilirubin Urine Urobilinogen Ur Leukocyte Esterase RPR Titer Nonreactive VS and labs WNL Assessment: 01/26/18 17:23 xanax and heroin withdrawal sx Plan: continue detox protocol
[2018-01-26] MEDS: THIAMINE HCL 100 MG TABLET (FP) PO SCH (22:34)
[2018-01-26] MEDS: ZOLPIDEM TARTRATE 10 MG TABLET (PARK CARE ONLY) PO PRN (22:35)
[2018-01-27] MEDS: BACLOFEN 10 MG TABLET (FP) PO SCH ×3 (05:41→22:33)
[2018-01-27] MEDS ORDERED: IBUPROFEN 600 MG TABLET (FP) PO ONE (09:09)
[2018-01-27] MEDS ORDERED: ONDANSETRON *ODT* 4 MG TABLET SL PRN (09:11)
[2018-01-27] MEDS: PRENATAL VITAMINS W/ FOLIC ACID TABLET (FP) PO SCH (09:18)
[2018-01-27] MEDS ORDERED: METHADONE HCL 10 MG TABLET (FOR DETOX USE ONLY) PO SCH (10:00)
[2018-01-27] MEDS ORDERED: diazePAM 5 MG TABLET PO SCH (10:00)
[2018-01-27] MEDS: NICOTINE 14 MG/24 HOURS TOPICAL PATCH TD SCH (10:05)
--- NOTE | 2018-01-27 11:12 | EKG ---
Test Reason : Blood Pressure : / mmHG Vent. Rate : 067 BPM Atrial Rate : 067 BPM P-R Int : 158 ms QRS Dur : 096 ms QT Int : 404 ms P-R-T Axes : 059 085 063 degrees QTc Int : 426 ms NORMAL SINUS RHYTHM EARLY REPOLARIZATION NORMAL ECG WHEN COMPARED WITH ECG OF 19-SEP-2017 14:04, NO SIGNIFICANT CHANGE WAS FOUND Confirmed by CATHY MACARIO MD ([id number]) on 01/27/2018 11:11:53 AM Referred By: Confirmed By:CATHY MACARIO MD
--- NOTE | 2018-01-27 13:12 | PN ---
[facility] Progress Note (SOAP) Subjective: PT C/O HOT/COLD CHILLS,NAUSEA,DECREASED APPETITE,LOWER BACH PAIN,INTERMITTENT SLEEP. Objective: 01/27/18 13:11 Vital Signs 01/27/18 01/27/18 06:24 09:25 Temperature 97.9 F 96.0 F L Pulse Rate 55 L 45 L Respiratory 18 18 Rate Blood Pressure 107/67 105/61 Laboratory Tests 01/23/18 01/24/18 01/24/18 10:53 06:00 06:00 WBC 13.9 H RBC 4.39 Hgb 12.3 Hct 37.1 MCV 84.5 MCH 28.0 MCHC 33.1 RDW 14.3 Plt Count 183 D MPV 10.2 D Sodium 141 Potassium 3.6 Chloride 102 Carbon Dioxide 29 Anion Gap 10 BUN 14 Creatinine 0.7 Creat Clearance w eGFR > 60 Random Glucose 111 H Calcium 8.9 Total Bilirubin 0.4 AST 50 H D ALT 61 D Alkaline Phosphatase 127 H Total Protein 7.5 Albumin 3.2 L Urine Color Yellow Urine Appearance Clear Urine pH 6.0 Ur Specific [place] 1.024 Urine Protein Negative Urine Glucose (UA) Negative Urine Ketones Negative Urine Blood Negative Urine Nitrite Negative Urine Bilirubin Negative Urine Urobilinogen Negative Ur Leukocyte Esterase Negative RPR Titer 01/24/18 06:00 WBC RBC Hgb Hct MCV MCH MCHC RDW Plt Count MPV Sodium Potassium Chloride Carbon Dioxide Anion Gap BUN Creatinine Creat Clearance w eGFR Random Glucose Calcium Total Bilirubin AST ALT Alkaline Phosphatase Total Protein Albumin Urine Color Urine Appearance Urine pH Ur Specific [place] Urine Protein Urine Glucose (UA) Urine Ketones Urine Blood Urine Nitrite Urine Bilirubin Urine Urobilinogen Ur Leukocyte Esterase RPR Titer Nonreactive Assessment: 01/27/18 13:11 WITHDRAWAL SX Plan: CONTINUE DETOX
[2018-01-27] MEDS: ZOLPIDEM TARTRATE 10 MG TABLET (PARK CARE ONLY) PO PRN (21:55)
[2018-01-27] MEDS: THIAMINE HCL 100 MG TABLET (FP) PO SCH (22:32)
[2018-01-28] MEDS ORDERED: METHADONE HCL 5 MG TABLET (FOR DETOX USE ONLY) PO SCH (06:00)
[2018-01-28] MEDS: BACLOFEN 10 MG TABLET (FP) PO SCH ×2 (06:11→15:15)
[2018-01-28] MEDS: NICOTINE 14 MG/24 HOURS TOPICAL PATCH TD SCH (10:46)
[2018-01-28] MEDS: PRENATAL VITAMINS W/ FOLIC ACID TABLET (FP) PO SCH (10:46)
[2018-01-28 13:46] VITALS: BP 105/67; PULSE 51; TEMP 97.8
--- NOTE | 2018-01-28 14:17 | PN ---
[facility] Progress Note (SOAP) Subjective: DETOX COMPLETED. ALERT O X 3. AMBULATING WITH STEADY GAIT. NAD. Objective: 01/28/18 14:16 Vital Signs 01/28/18 01/28/18 01/28/18 06:27 09:52 13:45 Temperature 97.6 F 97.2 F L 97.8 F Pulse Rate 43 L 56 L 51 L Respiratory 16 16 18 Rate Blood Pressure 107/65 119/68 105/67 Laboratory Tests 01/23/18 01/24/18 01/24/18 10:53 06:00 06:00 WBC 13.9 H RBC 4.39 Hgb 12.3 Hct 37.1 MCV 84.5 MCH 28.0 MCHC 33.1 RDW 14.3 Plt Count 183 D MPV 10.2 D Sodium 141 Potassium 3.6 Chloride 102 Carbon Dioxide 29 Anion Gap 10 BUN 14 Creatinine 0.7 Creat Clearance w eGFR > 60 Random Glucose 111 H Calcium 8.9 Total Bilirubin 0.4 AST 50 H D ALT 61 D Alkaline Phosphatase 127 H Total Protein 7.5 Albumin 3.2 L Urine Color Yellow Urine Appearance Clear Urine pH 6.0 Ur Specific [place] 1.024 Urine Protein Negative Urine Glucose (UA) Negative Urine Ketones Negative Urine Blood Negative Urine Nitrite Negative Urine Bilirubin Negative Urine Urobilinogen Negative Ur Leukocyte Esterase Negative RPR Titer 01/24/18 06:00 WBC RBC Hgb Hct MCV MCH MCHC RDW Plt Count MPV Sodium Potassium Chloride Carbon Dioxide Anion Gap BUN Creatinine Creat Clearance w eGFR Random Glucose Calcium Total Bilirubin AST ALT Alkaline Phosphatase Total Protein Albumin Urine Color Urine Appearance Urine pH Ur Specific [place] Urine Protein Urine Glucose (UA) Urine Ketones Urine Blood Urine Nitrite Urine Bilirubin Urine Urobilinogen Ur Leukocyte Esterase RPR Titer Nonreactive Assessment: 01/28/18 14:16 MEDICALLY STABLE Plan: D/C PT TODAY TO REHAB IF BED AVAILABLE.
--- NOTE | 2018-01-28 14:20 | DS ---
[facility] Detox Discharge Summary Admission Date: 01/23/18 Discharge Date: 01/28/18 - History Present History: Opioid Dependence, Sedative Dependence Additional Comments: DETOX COMPLETED. ALERT O X 3. PT REPORTS HE HAS PRIMARY CARE AT [facility]. Pertinent Past History: PLEASE SEE DX BELOW - Physical Exam Results Vital Signs: Vital Signs Temperature 97.8 F 01/28/18 13:45 Pulse Rate 51 L 01/28/18 13:45 Respiratory Rate 18 01/28/18 13:45 Blood Pressure 105/67 01/28/18 13:45 O2 Sat by Pulse Oximetry (%) Pertinent Admission Physical Exam Findings: WITHDRAWAL SX Laboratory Tests 01/23/18 01/24/18 01/24/18 10:53 06:00 06:00 WBC 13.9 H RBC 4.39 Hgb 12.3 Hct 37.1 MCV 84.5 MCH 28.0 MCHC 33.1 RDW 14.3 Plt Count 183 D MPV 10.2 D Sodium 141 Potassium 3.6 Chloride 102 Carbon Dioxide 29 Anion Gap 10 BUN 14 Creatinine 0.7 Creat Clearance w eGFR > 60 Random Glucose 111 H Calcium 8.9 Total Bilirubin 0.4 AST 50 H D ALT 61 D Alkaline Phosphatase 127 H Total Protein 7.5 Albumin 3.2 L Urine Color Yellow Urine Appearance Clear Urine pH 6.0 Ur Specific [place] 1.024 Urine Protein Negative Urine Glucose (UA) Negative Urine Ketones Negative Urine Blood Negative Urine Nitrite Negative Urine Bilirubin Negative Urine Urobilinogen Negative Ur Leukocyte Esterase Negative RPR Titer 01/24/18 06:00 WBC RBC Hgb Hct MCV MCH MCHC RDW Plt Count MPV Sodium Potassium Chloride Carbon Dioxide Anion Gap BUN Creatinine Creat Clearance w eGFR Random Glucose Calcium Total Bilirubin AST ALT Alkaline Phosphatase Total Protein Albumin Urine Color Urine Appearance Urine pH Ur Specific [place] Urine Protein Urine Glucose (UA) Urine Ketones Urine Blood Urine Nitrite Urine Bilirubin Urine Urobilinogen Ur Leukocyte Esterase RPR Titer Nonreactive - Treatment Hospital Course: Detox Protocol Followed, Detoxed Safely, Responded well, Discharged Condition Good, Rehab Referral Accepted Patient has Accepted a Rehab Referral to: [address] [facility] - Medication Discharge Medications: Ambulatory Orders NK [No Known Home Medication] 01/23/18 - Diagnosis (1) Nicotine dependence Current Visit: Yes Status: Acute Qualifiers: Nicotine product type: cigarettes Substance use status: in withdrawal Qualified Code(s): F17.213 - Nicotine dependence, cigarettes, with withdrawal (2) Opioid dependence with withdrawal Current Visit: Yes Status: Acute (3) Sedative hypnotic or anxiolytic dependence Current Visit: Yes Status: Acute (4) Weight loss Current Visit: Yes Status: Acute - AMA Did Patient Leave Against Medical Advice: No
== END 2018-01-28 15:16 | disposition other institution (70) | DRG 773 ==
LOC: YASAS 10:04 → Y3N 15:46
PROVIDERS: ADMIT Surgery; ATTEND Surgery
PROC: HZ2ZZZZ Detoxification Services for Substance Abuse Treatment (ICD-10-PCS; principal; 2018-01-23)
DX: F11.23 Opioid dependence with withdrawal (principal); F13.230 Sedative, hypnotic or anxiolytic dependence with withdrawal, uncomplicated; F17.213 Nicotine dependence, cigarettes, with withdrawal; F19.24 Other psychoactive substance dependence with psychoactive substance-induced mood disorder; F41.8 Other specified anxiety disorders; G47.00 Insomnia, unspecified; R63.4 Abnormal weight loss; Z68.21 Body mass index [BMI] 21.0-21.9, adult
CPT/HCPCS: 36415; 80053; 81003; 85027; 86593; 93005; 93010; J0475

== ENCOUNTER 2018-01-28 15:44 | Inpatient (IN) | payer OTHER ==
[2018-01-28] MEDS ORDERED: MAGNESIUM CITRATE 300 ML BOTTLE PO PRN (18:23)
[2018-01-28] MEDS ORDERED: ACETAMINOPHEN 325 MG TABLET (FP) PO PRN (18:23)
[2018-01-28] MEDS ORDERED: guaiFENesin/D-METHORPHAN HB 10 ML UNIT-DOSE CUPS PO PRN (18:23)
[2018-01-28] MEDS ORDERED: MAG HYDROX/AL HYDROX/SIMETH 30 ML UNIT-DOSE CUP PO PRN (18:23)
[2018-01-28] MEDS ORDERED: MAGNESIUM HYDROX 2400MG/30ML ORAL SUSPENSION 30 ML CUP PO PRN (18:23)
[2018-01-28] MEDS ORDERED: NICOTINE POLACRILEX 2 MG GUM BUC PRN (18:23)
[2018-01-28] MEDS ORDERED: MENTHOL/PHENOL 1 EACH UD MM PRN (18:23)
[2018-01-28] MEDS ORDERED: IBUPROFEN 400 MG TABLET (FP) PO PRN (18:23)
[2018-01-28] MEDS ORDERED: LOPERAMIDE HCL 2 MG CAPSULE PO PRN (18:23)
[2018-01-28] MEDS ORDERED: P-EPHED 60MG/TRIPROLIDI 2.5MG TABLET PO PRN (18:23)
--- NOTE | 2018-01-28 18:27 | HP ---
[facility] Rehab Assess/Revision - Admission History Admitted to Rehab from: [facility] Date of Admission to Rehab: 01/28/18 - Findings Detox History & Physical reviewed: Yes Concur with findings: Yes Inpatient Rehab Admission - Initial Determination Are CD services needed?: Yes Free of communicable disease: Yes Not in need of hospitalization: Yes - Rehab Admission Criteria Previous failed treatment: Yes Poor recovery environment: Yes Comorbidities: Yes Lacks judgement: Yes Patient is meeting Inpatient Rehab admission criteria:: Yes
[2018-01-28] MEDS ORDERED: TUBERCULIN PPD 5 TU/0.1ML VIAL ID ONE (20:32)
[2018-01-28] MEDS: MELATONIN 5 MG TABLETS PO PRN (21:58)
[2018-01-28] MEDS: THIAMINE HCL 100 MG TABLET (FP) PO SCH (21:58)
--- NOTE | 2018-01-29 07:03 | HP ---
Psychiatrist Admission - Data Date of interview: 01/29/18 Admission source: Self-referred Identifying data: This is the second [facility] admission for this 37 years old male living as , father of 6( one adopted) children, unemployed, living with his mother Medical History: Unremarkable except for chronic lumbar pain. Smokes 10 cigarettes daily Psychiatric History: Denies history of previous psychiatric treatment. However reports feeling somewhat anxious due to immigation issues and sleeping poorly Physical/Sexual Abuse/Trauma History: Denies history of emotional, physical or sexual abuse as well as DV relationship Additional Comment: Reports history of multiple previous arrests. Cla he had one felony that was dismissed after he completed a program. Denies being on probation at present. No active opoen case Vital Signs: Vital Signs - 24 hr 01/29/18 00:30 Respiratory 18 Rate Allergies/Adverse Reactions: Allergies Allergy/AdvReac Type Severity Reaction Status Date / Time No Known Allergies Allergy Verified 01/23/18 11:36 Date of last physical exam: 01/23/18 Concur with the findings of this exam: Yes - Substance Abuse/Tx History Hx Substance Use: Yes Substance Use Type: Heroin (Started using heroin at age 33, consumes 2 grams daily. Last used on 01/23/18), Tranquilizers (Started using xanax at age 32, consumes 6-8 mg daily. Last used on 01/23/18) Hx Substance Use Treatment: Yes (4 previous inpt detox & one inpt rehab @ [facility]) Mental Status Exam - Mental Status Exam Alert and Oriented to: Time, Place, Person Cognitive Function: Fair Patient Appearance: Well Groomed Mood: Anxious Affect: Appropriate Patient Behavior: Cooperative Speech Pattern: Clear Thought Process: Intact Thought Disorder: Not Present Hallucinations: Denies Suicidal Ideation: Denies Homicidal Ideation: Denies Insight/Judgement: Fair Sleep: Poorly Appetite: Good Muscle strength/Tone: Normal Gait/Station: Normal Psychiatric Findings - Problem List ([place] 1, 2,3) (1) Opioid dependence Current Visit: No Status: Acute Qualifiers: Substance use status: uncomplicated Qualified Code(s): F11.20 - Opioid dependence, uncomplicated (2) Sedative hypnotic or anxiolytic dependence Current Visit: No Status: Acute (3) Nicotine dependence Current Visit: No Status: Chronic Qualifiers: Nicotine product type: cigarettes Substance use status: in withdrawal Qualified Code(s): F17.213 - Nicotine dependence, cigarettes, with withdrawal (4) Substance-induced anxiety disorder Current Visit: Yes Status: Acute (5) Substance-induced sleep disorder Current Visit: Yes Status: Acute (6) Low back pain Current Visit: No Status: Chronic Qualifiers: Chronicity: unspecified Back pain laterality: unspecified Sciatica presence: unspecified whether sciatica present Qualified Code(s): M54.5 - Low back pain - Initial Treatment Plan Initial Treatment Plan: 1) Start Melatonin 5 mg po HS prn for insomnia. 2) Monitor progress
[2018-01-29] MEDS: NICOTINE 14 MG/24 HOURS TOPICAL PATCH TD SCH (10:39)
[2018-01-29] MEDS: PRENATAL VITAMINS W/ FOLIC ACID TABLET (FP) PO SCH (10:39)
[2018-01-29] MEDS: THIAMINE HCL 100 MG TABLET (FP) PO SCH (21:43)
[2018-01-30] MEDS: PRENATAL VITAMINS W/ FOLIC ACID TABLET (FP) PO SCH (10:30)
[2018-01-30] MEDS: NICOTINE 14 MG/24 HOURS TOPICAL PATCH TD SCH (10:30)
[2018-01-30] MEDS: THIAMINE HCL 100 MG TABLET (FP) PO SCH (21:51)
[2018-01-30] MEDS: MELATONIN 5 MG TABLETS PO PRN (21:51)
[2018-01-31] MEDS: hydrOXYzine PAMOATE 50 MG CAPSULE (FP) PO PRN ×2 (00:51→21:40)
[2018-01-31] MEDS: PRENATAL VITAMINS W/ FOLIC ACID TABLET (FP) PO SCH (10:53)
[2018-01-31] MEDS: NICOTINE 14 MG/24 HOURS TOPICAL PATCH TD SCH (10:53)
[2018-01-31] MEDS: MELATONIN 5 MG TABLETS PO PRN (21:40)
[2018-01-31] MEDS: THIAMINE HCL 100 MG TABLET (FP) PO SCH (21:40)
[2018-02-01] MEDS: PRENATAL VITAMINS W/ FOLIC ACID TABLET (FP) PO SCH (10:50)
[2018-02-01] MEDS: NICOTINE 14 MG/24 HOURS TOPICAL PATCH TD SCH (10:50)
[2018-02-01] MEDS: hydrOXYzine PAMOATE 50 MG CAPSULE (FP) PO PRN ×2 (10:51→21:57)
[2018-02-01] MEDS: THIAMINE HCL 100 MG TABLET (FP) PO SCH (21:56)
[2018-02-01] MEDS: MELATONIN 5 MG TABLETS PO PRN (21:56)
[2018-02-02] MEDS: PRENATAL VITAMINS W/ FOLIC ACID TABLET (FP) PO SCH (10:35)
[2018-02-02] MEDS: NICOTINE 14 MG/24 HOURS TOPICAL PATCH TD SCH (10:35)
[2018-02-02] MEDS: hydrOXYzine PAMOATE 50 MG CAPSULE (FP) PO PRN ×2 (10:36→21:54)
[2018-02-02] MEDS: THIAMINE HCL 100 MG TABLET (FP) PO SCH (21:54)
[2018-02-02] MEDS: MELATONIN 5 MG TABLETS PO PRN (21:54)
[2018-02-03] MEDS: NICOTINE 14 MG/24 HOURS TOPICAL PATCH TD SCH (10:56)
[2018-02-03] MEDS: PRENATAL VITAMINS W/ FOLIC ACID TABLET (FP) PO SCH (10:56)
[2018-02-03] MEDS: THIAMINE HCL 100 MG TABLET (FP) PO SCH (22:11)
[2018-02-03] MEDS: hydrOXYzine PAMOATE 50 MG CAPSULE (FP) PO PRN (22:12)
[2018-02-03] MEDS: MELATONIN 5 MG TABLETS PO PRN (22:12)
[2018-02-04] MEDS: PRENATAL VITAMINS W/ FOLIC ACID TABLET (FP) PO SCH (11:45)
[2018-02-04] MEDS: NICOTINE 14 MG/24 HOURS TOPICAL PATCH TD SCH (11:45)
[2018-02-04] MEDS: MELATONIN 5 MG TABLETS PO PRN (22:04)
[2018-02-04] MEDS: hydrOXYzine PAMOATE 50 MG CAPSULE (FP) PO PRN (22:04)
[2018-02-04] MEDS: THIAMINE HCL 100 MG TABLET (FP) PO SCH (22:05)
[2018-02-05] MEDS: PRENATAL VITAMINS W/ FOLIC ACID TABLET (FP) PO SCH (10:55)
[2018-02-05] MEDS: NICOTINE 14 MG/24 HOURS TOPICAL PATCH TD SCH (10:55)
[2018-02-05] MEDS: THIAMINE HCL 100 MG TABLET (FP) PO SCH (22:27)
[2018-02-05] MEDS: MELATONIN 5 MG TABLETS PO PRN (22:27)
[2018-02-05] MEDS: hydrOXYzine PAMOATE 50 MG CAPSULE (FP) PO PRN (22:27)
[2018-02-06] MEDS: NICOTINE 14 MG/24 HOURS TOPICAL PATCH TD SCH (10:13)
[2018-02-06] MEDS: PRENATAL VITAMINS W/ FOLIC ACID TABLET (FP) PO SCH (10:13)
[2018-02-06] MEDS: THIAMINE HCL 100 MG TABLET (FP) PO SCH (21:39)
[2018-02-06] MEDS: MELATONIN 5 MG TABLETS PO PRN (21:39)
[2018-02-06] MEDS: hydrOXYzine PAMOATE 50 MG CAPSULE (FP) PO PRN (21:40)
[2018-02-07 07:35] VITALS: BP 118/78; PULSE 75; TEMP 98.5
[2018-02-07] MEDS: NICOTINE 14 MG/24 HOURS TOPICAL PATCH TD SCH (10:43)
[2018-02-07] MEDS: PRENATAL VITAMINS W/ FOLIC ACID TABLET (FP) PO SCH (10:43)
--- NOTE | 2018-02-07 10:55 | PN ---
Psychiatric Progress Note Vital Signs: Vital Signs Period Temp Pulse Resp BP Sys/Lantigua Pulse Ox Last 24 Hr 98.5 F 75 18-18 118/78 Date of Session: 02/07/18 Chief Complaint:: Discharge4 visit Current Medications: Active Medications Generic Name Dose Route Start Last Admin Trade Name Freq PRN Reason Stop Dose Admin Acetaminophen 650 mg 01/28/18 18:23 Tylenol - PO Q4H PRN FEVER Al Hydroxide/Mg Hydroxide 30 ml 01/28/18 18:23 Mylanta Oral Suspension - PO Q6H PRN DYSPEPSIA Eucalyptus/Menthol/Phenol/Sorbitol 1 each 01/28/18 18:23 Cepastat Lozenge - MM Q4H PRN SORE THROAT Guaifenesin 10 ml 01/28/18 18:23 Robitussin Dm - PO Q6H PRN COUGH Hydroxyzine Pamoate 50 mg 01/28/18 18:23 02/06/18 21:40 Vistaril - PO 50 mg Q4H PRN Administration AGITATION Ibuprofen 400 mg 01/28/18 18:23 Motrin - PO Q6H PRN Pain Level 4-6 Loperamide HCl 4 mg 01/28/18 18:23 Imodium - PO Q6H PRN DIARRHEA Magnesium Citrate 300 ml 01/28/18 18:23 Citroma - PO Q48H PRN CONSTIPATION Magnesium Hydroxide 30 ml 01/28/18 18:23 Milk Of Magnesia - PO DAILY PRN CONSTIPATION Melatonin 5 mg 01/28/18 22:00 02/06/18 21:39 Melatonin PO 5 mg HS PRN Administration INSOMNIA Nicotine 14 mg 01/29/18 10:00 02/07/18 10:43 Nicoderm Patch - TD Not Given DAILY FITZ Nicotine Polacrilex 2 mg 01/28/18 18:23 Nicorette Gum - BUC Q2H PRN NICOTINE REPLACEMENT RX Multivit/Folic Acid/Iron 1 tab 01/29/18 10:00 02/07/18 10:43 Vitamins (Sjr) - PO Not Given DAILY FITZ Pseudoephedrine/Triprolidine 1 combo 01/28/18 18:23 Actifed - PO TID PRN NASAL CONGESTION Thiamine HCl 100 mg 01/28/18 22:00 02/06/18 21:39 Vitamin B1 - PO 100 mg HS FITZ Administration Current Side Effect: No Lab tests ordered: No Lab tests reviewed: Yes Provider note:: Patient completed this program today(early diascharge).[employer] [facility] Total face to face time:: 25 Mental Status Exam - Mental Status Exam Alert and Oriented to: Time, Place, Person Cognitive Function: Grossly Intact Patient Appearance: Well Groomed Mood: Hopeful, Euthymic Affect: Appropriate, Mood Congruent Patient Behavior: Cooperative Speech Pattern: Clear Voice Loudness: Normal Thought Process: Goal Oriented Thought Disorder: Not Present Hallucinations: Denies Suicidal Ideation: Denies Homicidal Ideation: Denies Insight/Judgement: Fair Sleep: Fair Appetite: Good Muscle strength/Tone: Normal Gait/Station: Normal Psychiatric Treatment Plan - Problem List (1) Substance-induced anxiety disorder Current Visit: Yes (2) Substance-induced sleep disorder Current Visit: Yes (3) Encounter for monitoring Suboxone maintenance therapy Current Visit: No (4) Opioid dependence Current Visit: Yes (5) Low back pain Current Visit: Yes Qualifiers: Chronicity: unspecified Back pain laterality: unspecified Sciatica presence: unspecified whether sciatica present Qualified Code(s): M54.5 - Low back pain (6) Nicotine dependence Current Visit: Yes Qualifiers: Nicotine product type: cigarettes Substance use status: in withdrawal Qualified Code(s): F17.213 - Nicotine dependence, cigarettes, with withdrawal (7) Uncomplicated sedative, hypnotic or anxiolytic withdrawal Current Visit: Yes
== END 2018-02-07 11:00 | disposition home or self-care (01) | DRG 772 ==
LOC: YASAS 15:44 → Y5N 15:46
PROVIDERS: ADMIT Psychiatry & Neurology Psychiatry; ATTEND Psychiatry & Neurology Psychiatry
PROC: HZ42ZZZ Group Counseling for Substance Abuse Treatment, Cognitive-Behavioral (ICD-10-PCS; principal; 2018-01-28)
DX: F11.20 Opioid dependence, uncomplicated (principal); F13.20 Sedative, hypnotic or anxiolytic dependence, uncomplicated; F17.213 Nicotine dependence, cigarettes, with withdrawal; F19.280 Other psychoactive substance dependence with psychoactive substance-induced anxiety disorder; F19.282 Other psychoactive substance dependence with psychoactive substance-induced sleep disorder; M54.5 Low back pain

== ENCOUNTER 2018-03-08 08:41 | Inpatient (IN) | payer OTHER ==
--- NOTE | 2018-03-08 12:17 | HP ---
COWS - Scale Resting Pulse: 1= [place] 81-100 Sweatin= Chills/Flushing Restless Observation: 1= Difficult to Sit Still Pupil Size: 0= Normal to Room Light Bone or Joint Aches: 2= Severe Diffuse Aches Runny Nose/ Eye Tearin= Runny Nose/Eyes GI Upset > 30mins: 1= Stomach Cramp Tremor Observation: 2= Slight Tremor Visible Yawning Observation: 1= 1-2x During Session Anxiety or Irritability: 2=Irritable/Anxious Goose Flesh Skin: 0=Smooth Skin COWS Score: 13 CIWA Score - CIWA Score Nausea/Vomitin Muscle Tremors: 4-Moderate,w/Arms Extend Anxiety: 4-Mod. Anxious/Guarded Agitation: 1-Slight > Activity Paroxysmal Sweats: 1-Minimal Palms Moist Orientation: 1-Uncertain about Date Tacttile Disturbances: 1-Very Mild Itch/Numbness Auditory Disturbances: 1-Very Mild Visual Disturbances: 1-Very Mild Sensitivity Headache: 2-Mild CIWA-Ar Total Score: 18 Admission ROS S - HPI Chief Complaint: I use alot of drugs, I need help, I can't stop, I get real sick Allergies/Adverse Reactions: Allergies Allergy/AdvReac Type Severity Reaction Status Date / Time No Known Allergies Allergy Verified 03/08/18 12:13 History of Present Illness: 37 yo gentleman here for detox from alcohol and xanax. No seizures, no black outs, denies overdose. History of being on methadone years ago (100mg) as well as suboxone in past. Exam Limitations: Clinical Condition - Ebola screening Have you traveled outside of the country in the last 21 days: No (N) Have you had contact with anyone from an Ebola affected area: No Do you have a fever: No - Review of Systems Constitutional: Loss of Appetite, Malaise, Night Sweats, Changes in sleep, Weakness, Unintentional Wgt. Loss EENT: reports: Blurred Vision, Nose Congestion Respiratory: reports: No Symptoms reported Cardiac: reports: No Symptoms Reported GI: reports: Nausea, Poor Appetite, Indigestion, Abdominal cramping : reports: Frequency Musculoskeletal: reports: Back Pain, Muscle Pain Integumentary: reports: No Symptoms Reported Neuro: reports: Headache, Tremors Endocrine: reports: No Symptoms Reported Hematology: reports: No Symptoms Reported Psychiatric: reports: Judgement Intact, Mood/Affect Appropiate, Anxious Other Systems: Reviewed and Negative Patient History - Patient Medical History Hx Anemia: No Hx Asthma: No Hx Chronic Obstructive Pulmonary Disease (COPD): No Hx Cancer: No Hx Cardiac Disorders: No Hx Congestive Heart Failure: No Hx Hypertension: No Hx Hypercholesterolemia: No Hx Pacemaker: No HX Cerebrovascular Accident: No Hx Seizures: No Hx Dementia: No Hx Diabetes: No Hx Gastrointestinal Disorders: No Hx Liver Disease: No Hx Genitourinary Disorders: No Hx Sexually Transmitted Disorders: No Hx Renal Disease (ESRD): No Hx Thyroid Disease: No Hx Human Immunodeficiency Virus (HIV): No (10/15 negative) Hx Hepatitis C: No Hx Depression: No (insomnia) Hx Suicide Attempt: No Hx Bipolar Disorder: No Hx Schizophrenia: No - Patient Surgical History Past Surgical History: No Hx Neurologic Surgery: No Hx Cataract Extraction: No Hx Cardiac Surgery: No Hx Lung Surgery: No Hx Breast Surgery: No Hx Breast Biopsy: No Hx Abdominal Surgery: No Hx Appendectomy: No Hx Cholecystectomy: No Hx Genitourinary Surgery: No Hx Section: No Hx Orthopedic Surgery: No Anesthesia Reaction: No - PPD History Previous Implant?: Yes Documented Results: Negative w/proof Implanted On Prior [facility] Admission?: Yes Date: 01/31/18 Results: 0 mm PPD to be Administered?: No - Reproductive History Patient is a Female of Child Bearing Age (11 -55 yrs old): No (male) - Smoking Cessation Smoking history: Current every day smoker Have you smoked in the past 12 months: Yes Aproximately how many cigarettes per day: 10 Cigars Per Day: 0 Hx Chewing Tobacco Use: No Initiated information on smoking cessation: Yes 'Breaking Loose' booklet given: 03/08/18 - Substance & Tx. History Hx Alcohol Use: No Hx Substance Use: Yes Substance Use Type: Alcohol, Heroin, Tranquilizers Hx Substance Use Treatment: Yes (detox, rehab, methadone (100mg), suboxone) - Substances Abused Alprazolam (Xanax) Route: Oral Frequency: Daily Amount used: 8mg Age of first use: 32 Date of Last Use: 03/08/18 Heroin Route: Injection Frequency: Daily Amount used: 2 Gms Age of first use: 32 Date of Last Use: 03/08/18 Family Disease History - Family Disease History Family Disease History: [place]: Father ( leukemia), Other: Father, Mother ( living - healthy), Brother (one - living- healthy), Sister (one - living - healthy), Son (one - age 11 - healthy), Daughter (five - ages 18,13,10,6,1 - healthy) Admission Physical Exam [facility] - Vital Signs Vital Signs: Vital Signs Period Temp Pulse Resp BP Sys/Lantigua Pulse Ox Last 24 Hr 97.4 F 80 18 138/80 - Physical General Appearance: Yes: Nourished, Appropriately Dressed, Moderate Distress, Irritable, Anxious HEENTM: Yes: Hearing grossly Normal, Normocephalic, Normal Voice, Pharynx Normal Respiratory: Yes: Normal Breath Sounds, No Respiratory Distress Neck: Yes: No masses,lesions,Nodules, Supple Breast: Yes: Breast Exam Deferred Cardiology: Yes: Regular Rhythm, Regular Rate Abdominal: Yes: Flat, Soft Genitourinary: Yes: Dysuria Back: Yes: Normal Inspection Musculoskeletal: Yes: full range of Motion, Gait Steady Extremities: Yes: Normal Capillary Refill, Normal Inspection, Normal Range of Motion Neurological: Yes: Fully Oriented, Alert, Normal Mood/Affect, Normal Response Integumentary: Yes: Normal Color, Warm, Track Villanueva (both arms - no erythema, no abscess noted) Lymphatic: Yes: Within Normal Limits - Diagnostic (1) Opioid dependence with withdrawal Current Visit: Yes Status: Chronic (2) Uncomplicated sedative, hypnotic or anxiolytic withdrawal Current Visit: Yes Status: Chronic (3) Nicotine dependence Current Visit: Yes Status: Chronic Qualifiers: Nicotine product type: cigarettes Substance use status: in withdrawal Qualified Code(s): F17.213 - Nicotine dependence, cigarettes, with withdrawal Cleared for Admission [facility] - Detox or Rehab [facility] Level of Care: Medically Managed Detox Regimen/Protocol: Methadone/Valium [facility] Breath Alcohol Content Breath Alcohol Content: 0
[2018-03-08] MEDS ORDERED: MENTHOL/PHENOL 1 EACH UD MM PRN (12:28)
[2018-03-08] MEDS ORDERED: guaiFENesin/D-METHORPHAN HB 10 ML UNIT-DOSE CUPS PO PRN (12:28)
[2018-03-08] MEDS ORDERED: ACETAMINOPHEN 325 MG TABLET (FP) PO PRN (12:28)
[2018-03-08] MEDS ORDERED: diazePAM 5 MG TABLET PO PRN (12:28)
[2018-03-08] MEDS ORDERED: MAGNESIUM CITRATE 300 ML BOTTLE PO PRN (12:28)
[2018-03-08] MEDS ORDERED: MAGNESIUM HYDROX 2400MG/30ML ORAL SUSPENSION 30 ML CUP PO PRN (12:28)
[2018-03-08] MEDS ORDERED: LOPERAMIDE HCL 2 MG CAPSULE PO PRN (12:28)
[2018-03-08] MEDS ORDERED: IBUPROFEN 400 MG TABLET (FP) PO PRN (12:28)
[2018-03-08] MEDS ORDERED: MAG HYDROX/AL HYDROX/SIMETH 30 ML UNIT-DOSE CUP PO PRN (12:28)
[2018-03-08] MEDS ORDERED: P-EPHED 60MG/TRIPROLIDI 2.5MG TABLET PO PRN (12:28)
[2018-03-08 12:36] VITALS: BMI 21.8
[2018-03-08] MEDS ORDERED: METHADONE HCL 10 MG TABLET (FOR DETOX USE ONLY) PO ONE ×2 (13:45→23:00)
[2018-03-08] MEDS ORDERED: diazePAM 5 MG TABLET PO ONE (13:45)
[2018-03-08] MEDS: diazePAM 5 MG TABLET PO SCH ×2 (14:27→22:46)
[2018-03-08 17:04] LABS: URINE APPEARANCE TURBID; URINE BILIRUBIN NEGATIVE (<2.0 mg/dL); URINE COLOR AMBER; URINE GLUCOSE (UA) NEGATIVE (NEGATIVE); URINE KETONE NEGATIVE (NEGATIVE); URINE LEUK ESTERASE NEGATIVE (NEGATIVE); URINE NITRITE NEGATIVE (NEGATIVE); URINE PROTEIN NEGATIVE (NEGATIVE); URINE UROBILINOGEN NEGATIVE mg/dL (0.2-1.0)
[2018-03-08] MEDS ORDERED: MELATONIN 5 MG TABLETS PO PRN (22:00)
[2018-03-08] MEDS: THIAMINE HCL 100 MG TABLET (FP) PO SCH (22:47)
[2018-03-09] MEDS: diazePAM 5 MG TABLET PO SCH ×3 (05:37→23:58)
[2018-03-09] MEDS ORDERED: METHADONE HCL 10 MG TABLET (FOR DETOX USE ONLY) PO SCH (10:00)
[2018-03-09] MEDS: PRENATAL VITAMINS W/ FOLIC ACID TABLET (FP) PO SCH (10:26)
[2018-03-09 10:52] LABS: HEMATOCRIT 42.7 % (35.4-49); HEMOGLOBIN 14.3 GM/dL (11.7-16.9); MCH 27.6 pg (25.7-33.7); MCHC 33.5 g/dl (32.0-35.9); MEAN CELL VOLUME 82.3 fl (80-96); MEAN PLT VOLUME 8.7 fl (7.5-11.1); PLATELET COUNT 237 K/MM3 (134-434); RBC 5.18 M/mm3 (4.00-5.60); WHITE BLOOD COUNT 5.5 K/mm3 (4.0-10.0)
[2018-03-09 11:14] LABS: CHLORIDE 101 mmol/L (98-107); POTASSIUM 4.3 mmol/L (3.5-5.1); SODIUM 137 mmol/L (136-145)
[2018-03-09 11:33] LABS: ALBUMIN 3.5 g/dl (3.4-5.0); ALK PHOS 75 U/L (45-117); ANION GAP 9 MMOL/L (8-16); BILIRUBIN,TOTAL 0.5 mg/dL (0.2-1.0); BLOOD UREA NITROGEN 7 mg/dL (7-18); CALCIUM 9.3 mg/dL (8.5-10.1); CO2 27 mmol/L (21-32); CREATININE 0.5 mg/dL (0.7-1.3); GLUCOSE,RANDOM 84 mg/dL (74-106); SGOT/AST 20 U/L (15-37); SGPT/ALT 23 U/L (12-78); TOT PROT 8.2 g/dl (6.4-8.2)
--- NOTE | 2018-03-09 15:06 | PN ---
[facility] CIWA - CIWA Score Nausea/Vomitin-No Nausea/No Vomiting Muscle Tremors: 4-Moderate,w/Arms Extend Anxiety: 4-Mod. Anxious/Guarded Agitation: 4-Moderately Restless Paroxysmal Sweats: 1-Minimal Palms Moist Orientation: 0-Oriented Tacttile Disturbances: 0-None Auditory Disturbances: 0-None Visual Disturbances: 0-None Headache: 1-Very Mild CIWA-Ar Total Score: 14 [facility] COWS - Scale Resting Pulse: 0= [place] 80 or Below Sweatin= Chills/Flushing Restless Observation: 0= Sits Still Pupil Size: 0= Normal to Room Light Bone or Joint Aches: 2= Severe Diffuse Aches Runny Nose/ Eye Tearin= Nasal Congestion GI Upset > 30mins: 2= Nausea/Diarrhea Tremor Observation of Outstretched Hands: 2= Slight Tremor Visible Yawning Observation: 1= 1-2x During Session Anxiety or Irritability: 2=Irritable/Anxious Goose Flesh Skin: 3=Piloerection COWS Score: 14 S Progress Note (SOAP) Subjective: headache restlessness anxiety irritable agitative Objective: 03/09/18 15:08 Vital Signs Temperature 97.7 F 03/09/18 14:49 Pulse Rate 55 L 03/09/18 14:49 Respiratory Rate 16 03/09/18 14:49 Blood Pressure 103/67 03/09/18 14:49 O2 Sat by Pulse Oximetry (%) Laboratory Last Values WBC 5.5 K/mm3 (4.0-10.0) 03/09/18 08:00 RBC 5.18 M/mm3 (4.00-5.60) 03/09/18 08:00 Hgb 14.3 GM/dL (11.7-16.9) 03/09/18 08:00 Hct 42.7 % (35.4-49) D 03/09/18 08:00 MCV 82.3 fl (80-96) 03/09/18 08:00 MCH 27.6 pg (25.7-33.7) 03/09/18 08:00 MCHC 33.5 g/dl (32.0-35.9) 03/09/18 08:00 RDW 15.0 % (11.9-15.9) 03/09/18 08:00 Plt Count 237 K/MM3 (134-434) D 03/09/18 08:00 MPV 8.7 fl (7.5-11.1) D 03/09/18 08:00 Sodium 137 mmol/L (136-145) 03/09/18 08:00 Potassium 4.3 mmol/L (3.5-5.1) 03/09/18 08:00 Chloride 101 mmol/L (98-107) 03/09/18 08:00 Carbon Dioxide 27 mmol/L (21-32) 03/09/18 08:00 Anion Gap 9 MMOL/L (8-16) 03/09/18 08:00 BUN 7 mg/dL (7-18) 03/09/18 08:00 Creatinine 0.5 mg/dL (0.7-1.3) L 03/09/18 08:00 Creat Clearance w eGFR > 60 (>60) 03/09/18 08:00 Random Glucose 84 mg/dL (74-106) D 03/09/18 08:00 Calcium 9.3 mg/dL (8.5-10.1) 03/09/18 08:00 Total Bilirubin 0.5 mg/dL (0.2-1.0) 03/09/18 08:00 AST 20 U/L (15-37) D 03/09/18 08:00 ALT 23 U/L (12-78) D 03/09/18 08:00 Alkaline Phosphatase 75 U/L (45-117) 03/09/18 08:00 Total Protein 8.2 g/dl (6.4-8.2) 03/09/18 08:00 Albumin 3.5 g/dl (3.4-5.0) 03/09/18 08:00 Urine Color [place] 03/08/18 14:04 Urine Appearance Turbid 03/08/18 14:04 Urine pH 5.0 (5.0-8.0) 03/08/18 14:04 Ur Specific [place] 1.025 (1.001-1.035) 03/08/18 14:04 Urine Protein Negative (NEGATIVE) 03/08/18 14:04 Urine Glucose (UA) Negative (NEGATIVE) 03/08/18 14:04 Urine Ketones Negative (NEGATIVE) 03/08/18 14:04 Urine Blood Negative (NEGATIVE) 03/08/18 14:04 Urine Nitrite Negative (NEGATIVE) 03/08/18 14:04 Urine Bilirubin Negative (<2.0 mg/dL) 03/08/18 14:04 Urine Urobilinogen Negative mg/dL (0.2-1.0) 03/08/18 14:04 Ur Leukocyte Esterase Negative (NEGATIVE) 03/08/18 14:04 RPR Titer Nonreactive (NONREACTIVE) 03/09/18 08:00 lab noted Assessment: 03/09/18 15:09 withdrawal sx Plan: continue detox
--- NOTE | 2018-03-09 16:01 | PN ---
S Progress Note Note: Patient was found sleeping in bed. He told gag writer that he is not willing to be interviewed today because he is tired. He said he would be willing to do it tomorrow
[2018-03-09] MEDS: THIAMINE HCL 100 MG TABLET (FP) PO SCH (23:58)
[2018-03-10] MEDS: PRENATAL VITAMINS W/ FOLIC ACID TABLET (FP) PO SCH (10:08)
[2018-03-10] MEDS: METHADONE HCL 5 MG TABLET (FOR DETOX USE ONLY) PO SCH (10:08)
[2018-03-10] MEDS: diazePAM 5 MG TABLET PO SCH ×2 (10:08→23:22)
--- NOTE | 2018-03-10 11:25 | EKG ---
Test Reason : Blood Pressure : / mmHG Vent. Rate : 067 BPM Atrial Rate : 067 BPM P-R Int : 164 ms QRS Dur : 094 ms QT Int : 382 ms P-R-T Axes : 060 088 051 degrees QTc Int : 403 ms NORMAL SINUS RHYTHM NORMAL ECG WHEN COMPARED WITH ECG OF 23-JAN-2018 17:01, NO SIGNIFICANT CHANGE WAS FOUND Confirmed by CATHY MACARIO MD ([id number]) on 03/10/2018 11:24:30 AM Referred By: Confirmed By:CATHY MACARIO MD
--- NOTE | 2018-03-10 13:38 | PN ---
[facility] CIWA - CIWA Score Nausea/Vomitin-No Nausea/No Vomiting Muscle Tremors: 4-Moderate,w/Arms Extend Anxiety: 3 Agitation: 3 Paroxysmal Sweats: 1-Minimal Palms Moist Orientation: 1-Uncertain about Date Tacttile Disturbances: 1-Very Mild Itch/Numbness Auditory Disturbances: 0-None Visual Disturbances: 0-None Headache: 0-None Present CIWA-Ar Total Score: 13 BHS COWS - Scale Resting Pulse: 0= [place] 80 or Below Sweatin= Chills/Flushing Restless Observation: 1= Difficult to Sit Still Pupil Size: 0= Normal to Room Light Bone or Joint Aches: 2= Severe Diffuse Aches Runny Nose/ Eye Tearin= Runny Nose/Eyes GI Upset > 30mins: 1= Stomach Cramp Tremor Observation of Outstretched Hands: 2= Slight Tremor Visible Yawning Observation: 2= >3x During Session Anxiety or Irritability: 2=Irritable/Anxious Goose Flesh Skin: 0=Smooth Skin COWS Score: 13 S Progress Note (SOAP) Subjective: sweat tremor anxiety joint paint body aches low energy Objective: 03/10/18 13:37 Vital Signs Temperature 97.3 F L 03/10/18 13:23 Pulse Rate 52 L 03/10/18 13:23 Respiratory Rate 16 03/10/18 13:23 Blood Pressure 115/73 03/10/18 13:23 O2 Sat by Pulse Oximetry (%) Laboratory Last Values WBC 5.5 K/mm3 (4.0-10.0) 03/09/18 08:00 RBC 5.18 M/mm3 (4.00-5.60) 03/09/18 08:00 Hgb 14.3 GM/dL (11.7-16.9) 03/09/18 08:00 Hct 42.7 % (35.4-49) D 03/09/18 08:00 MCV 82.3 fl (80-96) 03/09/18 08:00 MCH 27.6 pg (25.7-33.7) 03/09/18 08:00 MCHC 33.5 g/dl (32.0-35.9) 03/09/18 08:00 RDW 15.0 % (11.9-15.9) 09/09/18 08:00 Plt Count 237 K/MM3 (134-434) D 03/09/18 08:00 MPV 8.7 fl (7.5-11.1) D 03/09/18 08:00 Sodium 137 mmol/L (136-145) 03/09/18 08:00 Potassium 4.3 mmol/L (3.5-5.1) 03/09/18 08:00 Chloride 101 mmol/L (98-107) 03/09/18 08:00 Carbon Dioxide 27 mmol/L (21-32) 03/09/18 08:00 Anion Gap 9 MMOL/L (8-16) 03/09/18 08:00 BUN 7 mg/dL (7-18) 03/09/18 08:00 Creatinine 0.5 mg/dL (0.7-1.3) L 03/09/18 08:00 Creat Clearance w eGFR > 60 (>60) 03/09/18 08:00 Random Glucose 84 mg/dL (74-106) D 03/09/18 08:00 Calcium 9.3 mg/dL (8.5-10.1) 03/09/18 08:00 Total Bilirubin 0.5 mg/dL (0.2-1.0) 03/09/18 08:00 AST 20 U/L (15-37) D 03/09/18 08:00 ALT 23 U/L (12-78) D 03/09/18 08:00 Alkaline Phosphatase 75 U/L (45-117) 03/09/18 08:00 Total Protein 8.2 g/dl (6.4-8.2) 03/09/18 08:00 Albumin 3.5 g/dl (3.4-5.0) 03/09/18 08:00 Urine Color Mary 03/08/18 14:04 Urine Appearance Turbid 03/08/18 14:04 Urine pH 5.0 (5.0-8.0) 03/08/18 14:04 Ur Specific [place] 1.025 (1.001-1.035) 03/08/18 14:04 Urine Protein Negative (NEGATIVE) 03/08/18 14:04 Urine Glucose (UA) Negative (NEGATIVE) 03/08/18 14:04 Urine Ketones Negative (NEGATIVE) 03/08/18 14:04 Urine Blood Negative (NEGATIVE) 03/08/18 14:04 Urine Nitrite Negative (NEGATIVE) 03/08/18 14:04 Urine Bilirubin Negative (<2.0 mg/dL) 03/08/18 14:04 Urine Urobilinogen Negative mg/dL (0.2-1.0) 03/08/18 14:04 Ur Leukocyte Esterase Negative (NEGATIVE) 03/08/18 14:04 RPR Titer Nonreactive (NONREACTIVE) 03/09/18 08:00 lab noted Assessment: 03/10/18 13:37 withdrawal sx Plan: continue detox
[2018-03-10] MEDS: THIAMINE HCL 100 MG TABLET (FP) PO SCH (22:55)
[2018-03-11] MEDS: METHADONE HCL 5 MG TABLET (FOR DETOX USE ONLY) PO SCH (10:08)
[2018-03-11] MEDS: diazePAM 5 MG TABLET PO SCH ×2 (10:08→22:34)
[2018-03-11] MEDS: PRENATAL VITAMINS W/ FOLIC ACID TABLET (FP) PO SCH (10:08)
--- NOTE | 2018-03-11 15:45 | PN ---
BHS Progress Note (SOAP) Subjective: body pain sweat tremor restlessness trouble sleep at night Objective: 03/11/18 15:44 Vital Signs Temperature 97.7 F 03/11/18 13:01 Pulse Rate 58 L 03/11/18 13:01 Respiratory Rate 18 03/11/18 13:01 Blood Pressure 97/50 03/11/18 13:01 O2 Sat by Pulse Oximetry (%) Laboratory Last Values WBC 5.5 K/mm3 (4.0-10.0) 03/09/18 08:00 RBC 5.18 M/mm3 (4.00-5.60) 03/09/18 08:00 Hgb 14.3 GM/dL (11.7-16.9) 03/09/18 08:00 Hct 42.7 % (35.4-49) D 03/09/18 08:00 MCV 82.3 fl (80-96) 03/09/18 08:00 MCH 27.6 pg (25.7-33.7) 03/09/18 08:00 MCHC 33.5 g/dl (32.0-35.9) 03/09/18 08:00 RDW 15.0 % (11.9-15.9) 03/09/18 08:00 Plt Count 237 K/MM3 (134-434) D 03/09/18 08:00 MPV 8.7 fl (7.5-11.1) D 03/09/18 08:00 Sodium 137 mmol/L (136-145) 03/09/18 08:00 Potassium 4.3 mmol/L (3.5-5.1) 03/09/18 08:00 Chloride 101 mmol/L (98-107) 03/09/18 08:00 Carbon Dioxide 27 mmol/L (21-32) 03/09/18 08:00 Anion Gap 9 MMOL/L (8-16) 03/09/18 08:00 BUN 7 mg/dL (7-18) 03/09/18 08:00 Creatinine 0.5 mg/dL (0.7-1.3) L 03/09/18 08:00 Creat Clearance w eGFR > 60 (>60) 03/09/18 08:00 Random Glucose 84 mg/dL (74-106) D 03/09/18 08:00 Calcium 9.3 mg/dL (8.5-10.1) 03/09/18 08:00 Total Bilirubin 0.5 mg/dL (0.2-1.0) 03/09/18 08:00 AST 20 U/L (15-37) D 03/09/18 08:00 ALT 23 U/L (12-78) D 03/09/18 08:00 Alkaline Phosphatase 75 U/L (45-117) 03/09/18 08:00 Total Protein 8.2 g/dl (6.4-8.2) 03/09/18 08:00 Albumin 3.5 g/dl (3.4-5.0) 03/09/18 08:00 Urine Color Mary 03/08/18 14:04 Urine Appearance Turbid 03/08/18 14:04 Urine pH 5.0 (5.0-8.0) 03/08/18 14:04 Ur Specific [place] 1.025 (1.001-1.035) 03/08/18 14:04 Urine Protein Negative (NEGATIVE) 03/08/18 14:04 Urine Glucose (UA) Negative (NEGATIVE) 03/08/18 14:04 Urine Ketones Negative (NEGATIVE) 03/08/18 14:04 Urine Blood Negative (NEGATIVE) 03/08/18 14:04 Urine Nitrite Negative (NEGATIVE) 03/08/18 14:04 Urine Bilirubin Negative (<2.0 mg/dL) 03/08/18 14:04 Urine Urobilinogen Negative mg/dL (0.2-1.0) 03/08/18 14:04 Ur Leukocyte Esterase Negative (NEGATIVE) 03/08/18 14:04 RPR Titer Nonreactive (NONREACTIVE) 03/09/18 08:00 lab noted Assessment: 03/11/18 15:45 withdrawal sx Plan: continue detox
[2018-03-11] MEDS: hydrOXYzine PAMOATE 50 MG CAPSULE (FP) PO PRN (22:34)
[2018-03-11] MEDS: THIAMINE HCL 100 MG TABLET (FP) PO SCH (22:34)
[2018-03-12] MEDS ORDERED: LIDOCAINE 5% TOPICAL PATCH TP ONE (09:50)
[2018-03-12] MEDS ORDERED: diazePAM 5 MG TABLET PO SCH (10:00)
[2018-03-12] MEDS ORDERED: METHADONE HCL 10 MG TABLET (FOR DETOX USE ONLY) PO SCH (10:00)
--- NOTE | 2018-03-12 10:03 | PN ---
BHS Progress Note (SOAP) Subjective: interrrupted sleep, sweats , decreased appetite, lbp Objective: 03/12/18 09:56 Vital Signs Temperature 97.7 F 03/12/18 09:32 Pulse Rate 50 L 03/12/18 09:32 Respiratory Rate 16 03/12/18 09:32 Blood Pressure 96/51 03/12/18 09:32 O2 Sat by Pulse Oximetry (%) Laboratory Tests 03/08/18 03/09/18 03/09/18 14:04 08:00 08:00 WBC 5.5 RBC 5.18 Hgb 14.3 Hct 42.7 D MCV 82.3 MCH 27.6 MCHC 33.5 RDW 15.0 Plt Count 237 D MPV 8.7 D Sodium 137 Potassium 4.3 Chloride 101 Carbon Dioxide 27 Anion Gap 9 BUN 7 Creatinine 0.5 L Creat Clearance w eGFR > 60 Random Glucose 84 D Calcium 9.3 Total Bilirubin 0.5 AST 20 D ALT 23 D Alkaline Phosphatase 75 Total Protein 8.2 Albumin 3.5 Urine Color Mary Urine Appearance Turbid Urine pH 5.0 Ur Specific [place] 1.025 Urine Protein Negative Urine Glucose (UA) Negative Urine Ketones Negative Urine Blood Negative Urine Nitrite Negative Urine Bilirubin Negative Urine Urobilinogen Negative Ur Leukocyte Esterase Negative RPR Titer 03/09/18 08:00 WBC RBC Hgb Hct MCV MCH MCHC RDW Plt Count MPV Sodium Potassium Chloride Carbon Dioxide Anion Gap BUN Creatinine Creat Clearance w eGFR Random Glucose Calcium Total Bilirubin AST ALT Alkaline Phosphatase Total Protein Albumin Urine Color Urine Appearance Urine pH Ur Specific [place] Urine Protein Urine Glucose (UA) Urine Ketones Urine Blood Urine Nitrite Urine Bilirubin Urine Urobilinogen Ur Leukocyte Esterase RPR Titer Nonreactive pt aox3 in nad lying in bed Assessment: 03/12/18 09:58 citlali maldonado's lbp Plan: cont. detox increase fluids lidocaine patch d/c in am
[2018-03-12] MEDS: PRENATAL VITAMINS W/ FOLIC ACID TABLET (FP) PO SCH (10:07)
[2018-03-12] MEDS ORDERED: LIDOCAINE PATCH REMOVAL MC SCH ×2 (22:00)
[2018-03-12] MEDS: hydrOXYzine PAMOATE 50 MG CAPSULE (FP) PO PRN (22:12)
[2018-03-12] MEDS: THIAMINE HCL 100 MG TABLET (FP) PO SCH (22:12)
[2018-03-13] MEDS ORDERED: METHADONE HCL 5 MG TABLET (FOR DETOX USE ONLY) PO SCH (06:00)
--- NOTE | 2018-03-13 08:37 | DS ---
[facility] Detox Discharge Summary Admission Date: 03/08/18 Discharge Date: 03/13/18 - History Present History: Alcohol Dependence, Opioid Dependence, Sedative Dependence Additional Comments: 37 years old male admitted on 03/08/18 for opiate alcohol and benzo withdrawal sx completed opiate and alcohol detox regimen tolerated well denies alcohol opiate benzo withdrawal sx alert oriented x 3 no acute distress aftercare vip - Physical Exam Results Vital Signs: Vital Signs Temperature 97.3 F L 03/13/18 06:00 Pulse Rate 52 L 03/13/18 06:00 Respiratory Rate 18 03/13/18 06:00 Blood Pressure 101/53 03/13/18 06:00 O2 Sat by Pulse Oximetry (%) Pertinent Admission Physical Exam Findings: alcohol benzo opiate withdrawal sx Vital Signs Temperature 97.7 F 03/13/18 08:56 Pulse Rate 55 L 03/13/18 08:56 Respiratory Rate 18 03/13/18 08:56 Blood Pressure 135/85 03/13/18 08:56 O2 Sat by Pulse Oximetry (%) Laboratory Last Values WBC 5.5 K/mm3 (4.0-10.0) 03/09/18 08:00 RBC 5.18 M/mm3 (4.00-5.60) 03/09/18 08:00 Hgb 14.3 GM/dL (11.7-16.9) 03/09/18 08:00 Hct 42.7 % (35.4-49) D 03/09/18 08:00 MCV 82.3 fl (80-96) 03/09/18 08:00 MCH 27.6 pg (25.7-33.7) 03/09/18 08:00 MCHC 33.5 g/dl (32.0-35.9) 03/09/18 08:00 RDW 15.0 % (11.9-15.9) 03/09/18 08:00 Plt Count 237 K/MM3 (134-434) D 03/09/18 08:00 MPV 8.7 fl (7.5-11.1) D 03/09/18 08:00 Sodium 137 mmol/L (136-145) 03/09/18 08:00 Potassium 4.3 mmol/L (3.5-5.1) 03/09/18 08:00 Chloride 101 mmol/L (98-107) 03/09/18 08:00 Carbon Dioxide 27 mmol/L (21-32) 03/09/18 08:00 Anion Gap 9 MMOL/L (8-16) 03/09/18 08:00 BUN 7 mg/dL (7-18) 03/09/18 08:00 Creatinine 0.5 mg/dL (0.7-1.3) L 03/09/18 08:00 Creat Clearance w eGFR > 60 (>60) 03/09/18 08:00 Random Glucose 84 mg/dL (74-106) D 03/09/18 08:00 Calcium 9.3 mg/dL (8.5-10.1) 03/09/18 08:00 Total Bilirubin 0.5 mg/dL (0.2-1.0) 03/09/18 08:00 AST 20 U/L (15-37) D 03/09/18 08:00 ALT 23 U/L (12-78) D 03/09/18 08:00 Alkaline Phosphatase 75 U/L (45-117) 03/09/18 08:00 Total Protein 8.2 g/dl (6.4-8.2) 03/09/18 08:00 Albumin 3.5 g/dl (3.4-5.0) 03/09/18 08:00 Urine Color Mary 03/08/18 14:04 Urine Appearance Turbid 03/08/18 14:04 Urine pH 5.0 (5.0-8.0) 03/08/18 14:04 Ur Specific [place] 1.025 (1.001-1.035) 03/08/18 14:04 Urine Protein Negative (NEGATIVE) 03/08/18 14:04 Urine Glucose (UA) Negative (NEGATIVE) 03/08/18 14:04 Urine Ketones Negative (NEGATIVE) 03/08/18 14:04 Urine Blood Negative (NEGATIVE) 03/08/18 14:04 Urine Nitrite Negative (NEGATIVE) 03/08/18 14:04 Urine Bilirubin Negative (<2.0 mg/dL) 03/08/18 14:04 Urine Urobilinogen Negative mg/dL (0.2-1.0) 03/08/18 14:04 Ur Leukocyte Esterase Negative (NEGATIVE) 03/08/18 14:04 RPR Titer Nonreactive (NONREACTIVE) 03/09/18 08:00 lab noted - Treatment Hospital Course: Detox Protocol Followed, Detoxed Safely, Responded well, Discharged Condition Good, Rehab Referral Accepted Patient has Accepted a Rehab Referral to: [facility] - Medication Discharge Medications: Ambulatory Orders NK [No Known Home Medication] 01/23/18 - Diagnosis (1) Alcohol dependence with uncomplicated withdrawal Status: Acute (2) Weight loss Status: Acute (3) Nicotine dependence Status: Acute Qualifiers: Nicotine product type: cigarettes Substance use status: in withdrawal Qualified Code(s): F17.213 - Nicotine dependence, cigarettes, with withdrawal (4) Opioid dependence with withdrawal Status: Acute (5) Uncomplicated sedative, hypnotic or anxiolytic withdrawal Status: Acute - AMA Did Patient Leave Against Medical Advice: No
[2018-03-13 08:57] VITALS: BP 135/85; PULSE 55; TEMP 97.7
[2018-03-13] MEDS: PRENATAL VITAMINS W/ FOLIC ACID TABLET (FP) PO SCH (09:28)
[2018-03-13] MEDS ORDERED: LIDOCAINE 5% TOPICAL PATCH TP SCH (10:00)
== END 2018-03-13 09:30 | disposition home or self-care (01) | DRG 773 ==
LOC: YASAS 08:41 → Y6N 13:36
PROC: HZ2ZZZZ Detoxification Services for Substance Abuse Treatment (ICD-10-PCS; principal; 2018-03-08)
DX: F11.23 Opioid dependence with withdrawal (principal); F13.230 Sedative, hypnotic or anxiolytic dependence with withdrawal, uncomplicated; F10.230 Alcohol dependence with withdrawal, uncomplicated; F17.213 Nicotine dependence, cigarettes, with withdrawal; F32.9 Major depressive disorder, single episode, unspecified; R63.4 Abnormal weight loss; Z68.21 Body mass index [BMI] 21.0-21.9, adult
CPT/HCPCS: 36415; 80053; 81003; 85027; 86593; 93005; 93010

== ENCOUNTER 2019-01-28 12:10 | Inpatient (IN) | payer OTHER ==
[2019-01-28 14:04] VITALS: BMI 23.4
--- NOTE | 2019-01-28 15:25 | HP ---
COWS - Scale Resting Pulse: 0= [place] 80 or Below Sweatin= Chills/Flushing Restless Observation: 3= Extraneous Movement Pupil Size: 0= Normal to Room Light Bone or Joint Aches: 2= Severe Diffuse Aches Runny Nose/ Eye Tearin= Runny Nose/Eyes GI Upset > 30mins: 1= Stomach Cramp Tremor Observation: 2= Slight Tremor Visible Yawning Observation: 1= 1-2x During Session Anxiety or Irritability: 1=Feels Anxious/Irritable Goose Flesh Skin: 0=Smooth Skin COWS Score: 13 CIWA Score Nausea/Vomitin-Mild Nausea/No Vomiting Muscle Tremors: 2 Anxiety: 2 Agitation: 1-Slight > Activity Paroxysmal Sweats: 1-Minimal Palms Moist Orientation: 0-Oriented Tacttile Disturbances: 2-Mild Itch/Numbness/Burn Auditory Disturbances: 2-Mild Harshness/Frighten Visual Disturbances: 1-Very Mild Sensitivity Headache: 1-Very Mild CIWA-Ar Total Score: 13 - Admission Criteria OASAS Guidelines: Admission for Medically Managed Detox: Requires at least one of the followin. CIWA greater than 12 2. Seizures within the past 24 hours 3. Delirium tremens within the past 24 hours 4. Hallucinations within the past 24 hours 5. Acute intervention needed for co occurring medical disorder 6. Acute intervention needed for co occurring psychiatric disorder 7. Severe withdrawal that cannot be handled at a lower level of care (continued vomiting, continued diarrhea, abnormal vital signs) requiring intravenous medication and/or fluids 8. Admission ROS [facility] Chief Complaint: here for detox from benzos. also with heroin use Allergies/Adverse Reactions: Allergies Allergy/AdvReac Type Severity Reaction Status Date / Time No Known Allergies Allergy Verified 01/28/19 13:54 History of Present Illness: 38 y/o M with no significant PMH who presents for detox from benzos. Also w/ heroin use. Per pt, he last used benzo this AM 2mg xanax. States that he mixes it with heroin to make it stronger. Usually uses 4mg daily of xanax. Never uses klonopin. Started in 2005. Has never had withdrawal sz or blackouts. During this time, has also c/t use heroin. Used 2 bags this AM via IVDA. Injects into his b/l UE, and has had multiple abscesses tx with abx previously. Uses 1/2 g daily. Has never had endocarditis. Is currently on methadone in a program at [facility], on a dose of 90mg that has been verified. Took his dose today this AM. Was on suboxone previously, states "it was efficient." Longest sobriety 7 months after he was last here in 2018 for detox. Denies other use has been in detox and rehab at [facility] previously 03/18, 01/15, etc. multiple visits PMH: as above PsxH: denies meds: denies allergies: NKDA FH: denies SH: +smokes cigs 10 cigs/day x 10 yrs. 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 has good family support. Exam Limitations: No Limitations - Ebola screening Have you traveled outside of the country in the last 21 days: No Have you had contact with anyone from an Ebola affected area: No Do you have a fever: No - Review of Systems Constitutional: Loss of Appetite, Unexplained wgt Loss EENT: reports: No Symptoms Reported Respiratory: reports: Shortness of Breath Cardiac: reports: No Symptoms Reported GI: reports: No Symptoms Reported : reports: No Symptoms Reported Musculoskeletal: reports: Back Pain, Muscle Pain Integumentary: reports: No Symptoms Reported Neuro: reports: No Symptoms reported Endocrine: reports: No Symptoms Reported Hematology: reports: No Symptoms Reported Psychiatric: reports: Orientated x3, Agitated Patient History - Patient Medical History Hx Anemia: No Hx Asthma: No Hx Chronic Obstructive Pulmonary Disease (COPD): No Hx Cancer: No Hx Cardiac Disorders: No Hx Congestive Heart Failure: No Hx Hypertension: No Hx Hypercholesterolemia: No Hx Pacemaker: No HX Cerebrovascular Accident: No Hx Seizures: No Hx Dementia: No Hx Diabetes: No Hx Gastrointestinal Disorders: No Hx Liver Disease: No Hx Genitourinary Disorders: No Hx Sexually Transmitted Disorders: No Hx Renal Disease (ESRD): No Hx Thyroid Disease: No Hx Human Immunodeficiency Virus (HIV): No (10/15 negative) Hx Hepatitis C: No Hx Depression: No (insomnia) Hx Suicide Attempt: No Hx Bipolar Disorder: No Hx Schizophrenia: No - Patient Surgical History Past Surgical History: No Hx Neurologic Surgery: No Hx Cataract Extraction: No Hx Cardiac Surgery: No Hx Lung Surgery: No Hx Breast Surgery: No Hx Breast Biopsy: No Hx Abdominal Surgery: No Hx Appendectomy: No Hx Cholecystectomy: No Hx Genitourinary Surgery: No Hx Section: No Hx Orthopedic Surgery: No Anesthesia Reaction: No - PPD History Documented Results: Negative w/proof Date: 01/31/18 Results: 0 mm PPD to be Administered?: No - Reproductive History Patient is a Female of Child Bearing Age (11 -55 yrs old): No - Smoking Cessation Smoking history: Current every day smoker Have you smoked in the past 12 months: Yes Aproximately how many cigarettes per day: 10 Cigars Per Day: 0 Hx Chewing Tobacco Use: No Initiated information on smoking cessation: Yes 'Breaking Loose' booklet given: 01/28/19 - Substance & Tx. History Hx Alcohol Use: Yes Hx Substance Use: Yes Substance Use Type: Heroin, Prescribed (benzos) - Substances abused Heroin Substance route: Injection Frequency: Daily Amount used: 1/2 gram Age of first use: 34 Date of last use: 01/28/19 Alprazolam (Xanax) Other (specify): 2mg Substance route: Oral Frequency: Daily Amount used: 2x 2mg Age of first use: 23 Date of last use: 01/28/19 Family Disease History - Family Disease History Family Disease History: CA: Father ( leukemia), Other: Father, Mother ( living - healthy), Brother (one - living- healthy), Sister (one - living - healthy), Son (one - age 11 - healthy), Daughter (five - ages 18,13,10,6,1 - healthy) Admission Physical Exam BHS - Vital Signs Vital Signs: Vital Signs - 24 hr 01/28/19 01/28/19 13:55 15:15 Temperature 97.6 F 97.6 F Pulse Rate 61 61 Respiratory 18 18 Rate Blood Pressure 106/69 106/69 - Physical General Appearance: Yes: Within Normal Limits HEENTM: Yes: Within Normal Limits Respiratory: Yes: Lungs Clear Neck: Yes: Within Normal Limits, Supple Breast: Yes: Breast Exam Deferred Cardiology: Yes: Regular Rhythm, Regular Rate, S1, S2 Abdominal: Yes: Within Normal Limits Genitourinary: Yes: Within Normal Limits Back: Yes: Normal Inspection Musculoskeletal: Yes: Within Normal Limits Extremities: Yes: Other (+multiple indurated areas, track acosta) Neurological: Yes: fireproof door maker II-XII NML intact Integumentary: Yes: Dry, Warm, Track Acosta, Other (+indurated areas) Lymphatic: Yes: Within Normal Limits - Diagnostic (1) Opioid dependence on agonist therapy Current Visit: Yes Status: Chronic (2) Benzodiazepine withdrawal Current Visit: Yes Status: Acute Qualifiers: Complication of substance-induced condition: uncomplicated Qualified Code(s ): F13.230 - Sedative, hypnotic or anxiolytic dependence with withdrawal, uncomplicated (3) Dehydration Current Visit: Yes Status: Chronic (4) Nicotine dependence Current Visit: No Status: Chronic Qualifiers: Nicotine product type: cigarettes Substance use status: in withdrawal Qualified Code(s): F17.213 - Nicotine dependence, cigarettes, with withdrawal (5) IVDU (intravenous drug user) Current Visit: Yes Status: Chronic Cleared for Admission S - Detox or Rehab [facility] Level of Care: Medically Managed (will c/w valium and methadone maintenance program dose) Detox Regimen/Protocol: Valium Breathalyzer - Breathalyzer Breathalyzer: 0 Urine Drug Screen - Test Device Lot number: [id number] Expiration date: 10/28/20 - Control Is test valid?: Yes - Results Drug screen NEGATIVE: No Urine drug screen results: FEN-Fentanyl, MOP-Opiates, MTD-Methadone, BZO- Benzodiazepines Inpatient Rehab Admission - Rehab Decision to Admit Inpatient rehab admission?: No
[2019-01-28] MEDS ORDERED: METHOCARBAMOL 500 MG TABLET PO PRN (15:45)
[2019-01-28] MEDS ORDERED: MAG HYDROX/AL HYDROX/SIMETH 30 ML UNIT-DOSE CUP PO PRN (15:45)
[2019-01-28] MEDS ORDERED: MENTHOL/PHENOL 1 EACH UD MM PRN (15:45)
[2019-01-28] MEDS ORDERED: IBUPROFEN 400 MG TABLET (FP) PO PRN (15:45)
[2019-01-28] MEDS ORDERED: hydrOXYzine PAMOATE 25 MG CAPSULE (FP) PO PRN (15:45)
[2019-01-28] MEDS ORDERED: ACETAMINOPHEN 325 MG TABLET (FP) PO PRN ×2 (15:45)
[2019-01-28] MEDS ORDERED: MELATONIN 5 MG TABLETS PO PRN (15:45)
[2019-01-28] MEDS ORDERED: MAGNESIUM HYDROX 2400MG/30ML ORAL SUSPENSION 30 ML CUP PO PRN (15:45)
[2019-01-28] MEDS ORDERED: BISMUTH SUBSALICYLATE 524 MG/30 ML UD PO PRN (15:45)
--- NOTE | 2019-01-28 16:00 | PN ---
Teaching Attending Note Name of Resident: Libra Maciel ATTENDING PHYSICIAN STATEMENT I saw and evaluated the patient. I reviewed the resident's note and discussed the case with the resident. I agree with the resident's findings and plan as documented. SUBJECTIVE: this 38 years old male with xanax dependence,mmtp 90mgs/day,last medicated today ,need help for detox OBJECTIVE: withdrawal signs and symptom ASSESSMENT AND PLAN: this 38 years old male with xanax dependence,heroin abused,mmtp 90 mgs/day,last medicated today, need inpatient detox from xanax,,micalmanaged,valium regimen
[2019-01-28] MEDS: diazePAM 5 MG TABLET PO SCH ×2 (17:05→22:29)
[2019-01-28] MEDS: THIAMINE HCL 100 MG TABLET (FP) PO SCH (22:29)
[2019-01-29] MEDS ORDERED: METHADONE HCL 10 MG TABLET ONE (04:56)
[2019-01-29] MEDS ORDERED: METHADONE HCL 40 MG DISPERSABLE TABLET ONE (04:56)
[2019-01-29] MEDS: METHADONE 80 MG, METHADONE 10 MG PO SCH (05:44)
[2019-01-29] MEDS: diazePAM 5 MG TABLET PO SCH ×3 (05:44→22:30)
[2019-01-29] MEDS ORDERED: METHADONE HCL 40 MG DISPERSABLE TABLET PO SCH (06:00)
[2019-01-29] MEDS: PRENATAL VITAMINS W/ FOLIC ACID TABLET (FP) PO SCH (10:50)
[2019-01-29] MEDS ORDERED: PROCHLORPERAZINE MALEATE 5 MG TABLET PO PRN (10:52)
[2019-01-29 11:51] LABS: HEMATOCRIT 41.1 % (35.4-49); HEMOGLOBIN 13.9 GM/dL (11.7-16.9); MCH 28.7 pg (25.7-33.7); MCHC 33.9 g/dl (32.0-35.9); MEAN CELL VOLUME 84.6 fl (80-96); MEAN PLT VOLUME 9.2 fl (7.5-11.1); PLATELET COUNT 238 K/MM3 (134-434); RBC 4.86 M/mm3 (4.00-5.60); RDW 13.9 % (11.9-15.9); WHITE BLOOD COUNT 6.4 K/mm3 (4.0-10.0)
[2019-01-29 12:07] LABS: ALBUMIN 3.3 g/dl (3.4-5.0); BILIRUBIN,TOTAL 0.4 mg/dL (0.2-1); BLOOD UREA NITROGEN 11.6 mg/dL (7-18); CALCIUM 9.4 mg/dL (8.5-10.1); CREATININE 0.8 mg/dL (0.55-1.3); POTASSIUM 4.5 mmol/L (3.5-5.1); TOT PROT 8.3 g/dl (6.4-8.2)
--- NOTE | 2019-01-29 14:42 | PN ---
S CIWA - CIWA Score Nausea/Vomitin Muscle Tremors: 3 Anxiety: 3 Agitation: 2 Paroxysmal Sweats: No Perspiration Orientation: 0-Oriented Tacttile Disturbances: 0-None Auditory Disturbances: 2-Mild Harshness/Frighten Visual Disturbances: 0-None Headache: 0-None Present CIWA-Ar Total Score: 13 BHS COWS - Scale Resting Pulse: 2= [place] 101-120 Sweatin= No chills or Flushing Restless Observation: 1= Difficult to Sit Still Pupil Size: 0= Normal to Room Light Bone or Joint Aches: 2= Severe Diffuse Aches Runny Nose/ Eye Tearin= None GI Upset > 30mins: 2= Nausea/Diarrhea Tremor Observation of Outstretched Hands: 2= Slight Tremor Visible Yawning Observation: 1= 1-2x During Session Anxiety or Irritability: 2=Irritable/Anxious Goose Flesh Skin: 3=Piloerection COWS Score: 15 BHS Progress Note (SOAP) Subjective: Body Aches, Stomach Cramping, Nausea, Poor Appetite, Tremors, Interrupted Sleep. Objective: PATIENT A & O X 3, OBSERVED AMBULATING ON UNIT UNASSISTED. IN NO ACUTE DISTRESS. 01/29/19 14:41 Vital Signs Temperature 97.3 F L 01/29/19 13:41 Pulse Rate 62 01/29/19 13:41 Respiratory Rate 16 01/29/19 13:41 Blood Pressure 107/72 01/29/19 13:41 O2 Sat by Pulse Oximetry (%) Laboratory Tests 01/29/19 01/29/19 01/29/19 07:30 07:30 07:30 WBC 6.4 RBC 4.86 Hgb 13.9 Hct 41.1 MCV 84.6 MCH 28.7 MCHC 33.9 RDW 13.9 Plt Count 238 MPV 9.2 Sodium 139 Potassium 4.5 Chloride 101 Carbon Dioxide 33 H Anion Gap 4 L BUN 11.6 Creatinine 0.8 Est GFR (CKD-EPI)AfAm 132.27 Est GFR (CKD-EPI)NonAf 114.12 Random Glucose 76 Calcium 9.4 Total Bilirubin 0.4 AST 26 ALT 38 Alkaline Phosphatase 127 H Total Protein 8.3 H Albumin 3.3 L RPR Titer Nonreactive LABS NOTED. Assessment: 01/29/19 14:42 WITHDRAWAL SYMPTOMS. Plan: CONTINUE DETOX. ENSURE PO FOR CALORIC SUPPLEMENTATION.
[2019-01-29] MEDS: THIAMINE HCL 100 MG TABLET (FP) PO SCH (22:29)
[2019-01-30] MEDS ORDERED: METHADONE HCL 40 MG DISPERSABLE TABLET ONE (04:13)
[2019-01-30] MEDS ORDERED: METHADONE HCL 10 MG TABLET ONE (04:13)
[2019-01-30] MEDS: diazePAM 5 MG TABLET PO SCH ×2 (05:50→17:26)
[2019-01-30] MEDS: METHADONE 80 MG, METHADONE 10 MG PO SCH (05:50)
[2019-01-30] MEDS: PRENATAL VITAMINS W/ FOLIC ACID TABLET (FP) PO SCH (10:17)
[2019-01-30] MEDS: diazePAM 5 MG TABLET PO PRN ×2 (10:18→22:25)
--- NOTE | 2019-01-30 12:56 | PN ---
S CIWA - CIWA Score Nausea/Vomitin-No Nausea/No Vomiting Muscle Tremors: 3 Anxiety: 2 Agitation: 3 Paroxysmal Sweats: 2 Orientation: 0-Oriented Tacttile Disturbances: 0-None Auditory Disturbances: 0-None Visual Disturbances: 0-None Headache: 0-None Present CIWA-Ar Total Score: 10 S Progress Note (SOAP) Subjective: sweats Objective: 01/30/19 12:58 Vital Signs Temperature 97.7 F 01/30/19 09:14 Pulse Rate 57 L 01/30/19 09:14 Respiratory Rate 18 01/30/19 09:14 Blood Pressure 128/77 01/30/19 09:14 O2 Sat by Pulse Oximetry (%) aaox3 ambulating no acute distress Assessment: 01/30/19 12:59 mild withdrawal sx Plan: continue detox increase fluids d/c in am
[2019-01-30] MEDS: THIAMINE HCL 100 MG TABLET (FP) PO SCH (22:23)
[2019-01-31] MEDS ORDERED: METHADONE HCL 10 MG TABLET ONE (04:11)
[2019-01-31] MEDS ORDERED: METHADONE HCL 40 MG DISPERSABLE TABLET ONE (04:11)
[2019-01-31] MEDS ORDERED: diazePAM 5 MG TABLET PO ONE (06:00)
[2019-01-31] MEDS: METHADONE 80 MG, METHADONE 10 MG PO SCH (06:20)
[2019-01-31 06:24] VITALS: BP 143/72; PULSE 52; TEMP 97.5
== END 2019-01-31 07:00 | disposition home or self-care (01) | DRG 773 ==
LOC: YASAS 12:10 → Y6N 16:13
PROVIDERS: ADMIT Surgery; ATTEND Surgery
PROC: HZ2ZZZZ Detoxification Services for Substance Abuse Treatment (ICD-10-PCS; principal; 2019-01-28)
DX: F13.230 Sedative, hypnotic or anxiolytic dependence with withdrawal, uncomplicated (principal); F11.20 Opioid dependence, uncomplicated; F17.213 Nicotine dependence, cigarettes, with withdrawal; E86.0 Dehydration
CPT/HCPCS: 36415; 80053; 85027; 86593

== ENCOUNTER 2022-10-20 12:13 | Inpatient (IN) | payer OTHER ==
[2022-10-20 12:28] VITALS: BMI 19.8
[2022-10-20] MEDS ORDERED: ACETAMINOPHEN 325 MG TABLET (FP) PO PRN (13:23)
[2022-10-20] MEDS ORDERED: ONDANSETRON *ODT* 4 MG TABLET SL PRN (13:23)
[2022-10-20] MEDS ORDERED: LOPERAMIDE HCL 2 MG CAPSULE PO PRN (13:23)
[2022-10-20] MEDS ORDERED: DICYCLOMINE HCL 10 MG CAPSULE PO PRN (13:23)
[2022-10-20] MEDS ORDERED: IBUPROFEN 600 MG TABLET (FP) PO PRN (13:23)
[2022-10-20] MEDS ORDERED: guaiFENesin 600 MG TABLET.ER (FP) PO PRN (13:23)
[2022-10-20] MEDS ORDERED: NICOTINE POLACRILEX 4 MG GUM BUC PRN (13:23)
[2022-10-20] MEDS ORDERED: IBUPROFEN 400 MG TABLET (FP) PO PRN (13:23)
[2022-10-20] MEDS ORDERED: chlordiazePOXIDE HCL 25 MG CAPSULE PO PRN (13:23)
[2022-10-20] MEDS ORDERED: BISMUTH SUBSALICYLATE 524 MG/30 ML PO PRN (13:23)
[2022-10-20] MEDS ORDERED: MAGNESIUM HYDROX 2400MG/30ML ORAL SUSPENSION 30 ML CUP PO PRN (13:23)
[2022-10-20] MEDS ORDERED: NICOTINE 10 MG CARTRIDGE (INHALER) IH PRN (13:23)
[2022-10-20] MEDS ORDERED: POLYETHYLENE GLYCOL (HEALTHYLAX) 3350 17 GM PACKET PO PRN (13:23)
[2022-10-20] MEDS ORDERED: NALOXONE HCL 0.4 MG/ML VIAL IM PRN (13:23)
[2022-10-20] MEDS ORDERED: MAG HYDROX/AL HYDROX/SIMETH 30 ML UNIT-DOSE CUP PO PRN (13:23)
[2022-10-20] MEDS ORDERED: NALOXONE HCL (KLOXXADO) 8 MG SPRAY NS PRN (13:23)
[2022-10-20] MEDS ORDERED: BENZOCAINE/MENTHOL (CHLORASEPTIC ) LOZENGE MM PRN (13:23)
[2022-10-20] MEDS ORDERED: BENZONATATE 200 MG CAPSULE PO PRN (13:23)
[2022-10-20] MEDS ORDERED: chlordiazePOXIDE HCL 25 MG CAPSULE ONE (14:12)
[2022-10-20] MEDS: chlordiazePOXIDE HCL 25 MG CAPSULE PO SCH ×2 (17:50→22:46)
[2022-10-20] MEDS: METHOCARBAMOL 500 MG TABLET PO PRN (17:52)
[2022-10-20] MEDS: MELATONIN 5 MG TABLETS PO SCH (22:47)
[2022-10-20] MEDS: THIAMINE HCL 100 MG TABLET (FP) PO SCH (22:47)
[2022-10-21] MEDS: chlordiazePOXIDE HCL 25 MG CAPSULE PO SCH ×4 (05:29→22:26)
[2022-10-21] MEDS: METHOCARBAMOL 500 MG TABLET PO PRN ×2 (05:30→17:17)
[2022-10-21] MEDS: PRENATAL VITAMINS W/ FOLIC ACID TABLET (FP) PO SCH (10:16)
[2022-10-21 15:34] LABS: HEMATOCRIT 47.5 % (35.4-49); HEMOGLOBIN 16.5 GM/dL (11.7-16.9); MCH 32.3 pg (25.7-33.7); MCHC 34.7 g/dl (32.0-35.9); MEAN CELL VOLUME 93.1 fl (80-96); MEAN PLT VOLUME 9.3 fl (7.5-11.1); PLATELET COUNT 214 10^3/uL (134-434); RDW 13.5 % (11.9-15.9)
[2022-10-21 15:35] LABS: CALCIUM 9.4 mg/dL (8.5-10.1)
[2022-10-21 15:36] LABS: ALBUMIN 3.4 g/dl (3.4-5.0); BLOOD UREA NITROGEN 13.4 mg/dL (7-18)
[2022-10-21 15:39] LABS: CREATININE 0.7 mg/dL (0.55-1.3)
[2022-10-21 15:40] LABS: BILIRUBIN,TOTAL 0.4 mg/dL (0.2-1); TOT PROT 6.8 g/dl (6.4-8.2)
[2022-10-21 21:18] VITALS: RESP 18
[2022-10-21] MEDS: THIAMINE HCL 100 MG TABLET (FP) PO SCH (22:25)
[2022-10-21] MEDS: MELATONIN 5 MG TABLETS PO SCH (22:25)
[2022-10-22] MEDS: chlordiazePOXIDE HCL 25 MG CAPSULE PO SCH ×2 (05:17→10:26)
[2022-10-22] MEDS: METHOCARBAMOL 500 MG TABLET PO PRN (05:21)
[2022-10-22 09:16] VITALS: BP 146/82; PULSE 71; TEMP 98.1
[2022-10-22] MEDS: PRENATAL VITAMINS W/ FOLIC ACID TABLET (FP) PO SCH (10:26)
[2022-10-23] MEDS ORDERED: chlordiazePOXIDE HCL 10 MG CAPSULE PO PRN
[2022-10-23] MEDS ORDERED: chlordiazePOXIDE HCL 10 MG CAPSULE PO SCH (05:00)
[2022-10-24] MEDS ORDERED: chlordiazePOXIDE HCL 10 MG CAPSULE PO SCH (05:00)
[2022-10-25] MEDS ORDERED: chlordiazePOXIDE HCL 10 MG CAPSULE PO ONE (05:00)
== END 2022-10-22 12:25 | disposition left against medical advice (07) | DRG 770 ==
LOC: YASAS 12:13 → Y6N 15:02
PROVIDERS: ADMIT Allergy & Immunology; ATTEND Surgery
PROC: HZ2ZZZZ Detoxification Services for Substance Abuse Treatment (ICD-10-PCS; principal; 2022-10-20)
DX: F10.230 Alcohol dependence with withdrawal, uncomplicated (principal); F14.20 Cocaine dependence, uncomplicated; F12.20 Cannabis dependence, uncomplicated; F17.210 Nicotine dependence, cigarettes, uncomplicated; G47.00 Insomnia, unspecified; R76.11 Nonspecific reaction to tuberculin skin test without active tuberculosis; R63.4 Abnormal weight loss; Z68.1 Body mass index [BMI] 19.9 or less, adult; Z28.310 Unvaccinated for COVID-19; Z28.21 Immunization not carried out because of patient refusal
CPT/HCPCS: 36415; 80053; 85027; 86780; 87811; C9803-CS; U0003; U0005

== ENCOUNTER 2022-11-13 13:35 | Inpatient (IN) | payer OTHER ==
[2022-11-13 14:55] VITALS: BMI 17.9
[2022-11-13] MEDS ORDERED: BENZOCAINE/MENTHOL (CHLORASEPTIC ) LOZENGE MM PRN (15:59)
[2022-11-13] MEDS ORDERED: MAG HYDROX/AL HYDROX/SIMETH 30 ML UNIT-DOSE CUP PO PRN (15:59)
[2022-11-13] MEDS ORDERED: ACETAMINOPHEN 325 MG TABLET (FP) PO PRN (15:59)
[2022-11-13] MEDS ORDERED: BENZONATATE 200 MG CAPSULE PO PRN (15:59)
[2022-11-13] MEDS ORDERED: MAGNESIUM HYDROX 2400MG/30ML ORAL SUSPENSION 30 ML CUP PO PRN (15:59)
[2022-11-13] MEDS ORDERED: IBUPROFEN 600 MG TABLET (FP) PO PRN (15:59)
[2022-11-13] MEDS ORDERED: BISMUTH SUBSALICYLATE 524 MG/30 ML PO PRN (15:59)
[2022-11-13] MEDS ORDERED: ONDANSETRON *ODT* 4 MG TABLET SL PRN (15:59)
[2022-11-13] MEDS ORDERED: NALOXONE HCL 0.4 MG/ML VIAL IM PRN (15:59)
[2022-11-13] MEDS ORDERED: DICYCLOMINE HCL 10 MG CAPSULE PO PRN (15:59)
[2022-11-13] MEDS ORDERED: diazePAM 5 MG TABLET PO PRN (15:59)
[2022-11-13] MEDS ORDERED: LOPERAMIDE HCL 2 MG CAPSULE PO PRN (15:59)
[2022-11-13] MEDS ORDERED: IBUPROFEN 400 MG TABLET (FP) PO PRN (15:59)
[2022-11-13] MEDS ORDERED: POLYETHYLENE GLYCOL (HEALTHYLAX) 3350 17 GM PACKET PO PRN (15:59)
[2022-11-13] MEDS ORDERED: guaiFENesin 600 MG TABLET.ER (FP) PO PRN (15:59)
[2022-11-13] MEDS ORDERED: NALOXONE HCL (KLOXXADO) 8 MG SPRAY NS PRN (15:59)
[2022-11-13] MEDS ORDERED: LORazepam 1 MG TABLET PO PRN (16:10)
[2022-11-13] MEDS: LORazepam 2 MG TABLET PO SCH ×2 (16:24→22:43)
[2022-11-13] MEDS: PRENATAL VITAMINS W/ FOLIC ACID TABLET (FP) PO SCH (16:24)
[2022-11-13] MEDS ORDERED: LORazepam 2 MG TABLET ONE (16:28)
[2022-11-13] MEDS ORDERED: PRENATAL VITAMINS W/ FOLIC ACID TABLET (FP) PO ONE (16:28)
[2022-11-13] MEDS ORDERED: diazePAM 5 MG TABLET PO SCH (17:00)
[2022-11-13] MEDS: hydrOXYzine PAMOATE 25 MG CAPSULE (FP) PO PRN (22:43)
[2022-11-13] MEDS: METHOCARBAMOL 500 MG TABLET PO PRN (22:43)
[2022-11-13] MEDS: MELATONIN 5 MG TABLETS PO SCH (22:43)
[2022-11-13] MEDS: THIAMINE HCL 100 MG TABLET (FP) PO SCH (22:43)
[2022-11-14] MEDS: LORazepam 2 MG TABLET PO SCH ×4 (05:45→22:24)
[2022-11-14] MEDS: PRENATAL VITAMINS W/ FOLIC ACID TABLET (FP) PO SCH (10:07)
[2022-11-14 11:22] LABS: HEMATOCRIT 46.4 % (35.4-49); HEMOGLOBIN 16.2 GM/dL (11.7-16.9); MCH 32.3 pg (25.7-33.7); MEAN CELL VOLUME 92.3 fl (80-96); PLATELET COUNT 245 10^3/uL (134-434); RBC 5.03 M/mm3 (4.00-5.60); RDW 13.1 % (11.9-15.9); WHITE BLOOD COUNT 5.8 K/mm3 (4.0-10.0)
[2022-11-14 11:29] LABS: ALBUMIN 3.4 g/dl (3.4-5.0); CALCIUM 9.3 mg/dL (8.5-10.1)
[2022-11-14 11:30] LABS: BLOOD UREA NITROGEN 9.4 mg/dL (7-18)
[2022-11-14 11:32] LABS: CREATININE 0.7 mg/dL (0.55-1.3)
[2022-11-14 11:34] LABS: BILIRUBIN,TOTAL 0.6 mg/dL (0.2-1); TOT PROT 6.8 g/dl (6.4-8.2)
[2022-11-14] MEDS: METHOCARBAMOL 500 MG TABLET PO PRN (22:23)
[2022-11-14] MEDS: hydrOXYzine PAMOATE 25 MG CAPSULE (FP) PO PRN (22:23)
[2022-11-14] MEDS: THIAMINE HCL 100 MG TABLET (FP) PO SCH (22:23)
[2022-11-14] MEDS: MELATONIN 5 MG TABLETS PO SCH (22:23)
[2022-11-15] MEDS ORDERED: diazePAM 5 MG TABLET PO SCH (06:00)
[2022-11-15] MEDS: LORazepam 1 MG TABLET PO SCH ×4 (06:00→22:05)
[2022-11-15] MEDS: PRENATAL VITAMINS W/ FOLIC ACID TABLET (FP) PO SCH (10:19)
[2022-11-15] MEDS: METHOCARBAMOL 500 MG TABLET PO PRN ×2 (10:23→22:08)
[2022-11-15] MEDS: hydrOXYzine PAMOATE 25 MG CAPSULE (FP) PO PRN ×2 (10:23→22:07)
[2022-11-15] MEDS: MELATONIN 5 MG TABLETS PO SCH (22:04)
[2022-11-15] MEDS: THIAMINE HCL 100 MG TABLET (FP) PO SCH (22:05)
[2022-11-15] MEDS ORDERED: MELATONIN 5 MG TABLETS PO ONE (23:40)
[2022-11-16] MEDS ORDERED: LORazepam 0.5 MG TABLET PO PRN
[2022-11-16] MEDS: LORazepam 0.5 MG TABLET PO SCH ×4 (06:00→22:34)
[2022-11-16] MEDS ORDERED: diazePAM 5 MG TABLET PO SCH (06:00)
[2022-11-16] MEDS: PRENATAL VITAMINS W/ FOLIC ACID TABLET (FP) PO SCH (10:44)
[2022-11-16] MEDS: hydrOXYzine PAMOATE 25 MG CAPSULE (FP) PO PRN (15:58)
[2022-11-16] MEDS: THIAMINE HCL 100 MG TABLET (FP) PO SCH (22:34)
[2022-11-16] MEDS: MELATONIN 5 MG TABLETS PO SCH (22:34)
[2022-11-17] MEDS: METHOCARBAMOL 500 MG TABLET PO PRN (00:34)
[2022-11-17] MEDS: hydrOXYzine PAMOATE 25 MG CAPSULE (FP) PO PRN (00:34)
[2022-11-17] MEDS ORDERED: LORazepam 0.5 MG TABLET PO ONE (05:00)
[2022-11-17] MEDS ORDERED: diazePAM 5 MG TABLET PO ONE (06:00)
[2022-11-17 10:08] VITALS: BP 135/80; PULSE 91; RESP 18; TEMP 98.2
== END 2022-11-17 09:41 | disposition other institution (70) | DRG 774 ==
LOC: YASAS 13:35 → Y3N 16:25
PROVIDERS: ADMIT Allergy & Immunology; ATTEND Surgery
PROC: HZ2ZZZZ Detoxification Services for Substance Abuse Treatment (ICD-10-PCS; principal; 2022-11-13)
DX: F10.230 Alcohol dependence with withdrawal, uncomplicated (principal); F14.20 Cocaine dependence, uncomplicated; F12.20 Cannabis dependence, uncomplicated; F17.210 Nicotine dependence, cigarettes, uncomplicated; F41.9 Anxiety disorder, unspecified; G47.00 Insomnia, unspecified; M54.50 Low back pain, unspecified; G89.29 Other chronic pain; Z28.310 Unvaccinated for COVID-19; Z28.9 Immunization not carried out for unspecified reason
CPT/HCPCS: 36415; 71046-TC-FY; 80053; 85027; 86780; C9803-CS; U0003; U0005

== ENCOUNTER 2023-01-05 14:27 | Inpatient (IN) | payer OTHER ==
[2023-01-05 16:22] VITALS: BMI 21.7
[2023-01-05] MEDS ORDERED: MAGNESIUM HYDROX 2400MG/30ML ORAL SUSPENSION 30 ML CUP PO PRN (17:53)
[2023-01-05] MEDS ORDERED: NALOXONE HCL 0.4 MG/ML VIAL IM PRN (17:53)
[2023-01-05] MEDS ORDERED: POLYETHYLENE GLYCOL (HEALTHYLAX) 3350 17 GM PACKET PO PRN (17:53)
[2023-01-05] MEDS ORDERED: NALOXONE HCL (KLOXXADO) 8 MG SPRAY NS PRN (17:53)
[2023-01-05] MEDS ORDERED: DICYCLOMINE HCL 10 MG CAPSULE PO PRN (17:53)
[2023-01-05] MEDS ORDERED: MAG HYDROX/AL HYDROX/SIMETH 30 ML UNIT-DOSE CUP PO PRN (17:53)
[2023-01-05] MEDS ORDERED: IBUPROFEN 600 MG TABLET (FP) PO PRN (17:53)
[2023-01-05] MEDS ORDERED: IBUPROFEN 400 MG TABLET (FP) PO PRN (17:53)
[2023-01-05] MEDS ORDERED: BENZONATATE 200 MG CAPSULE PO PRN (17:53)
[2023-01-05] MEDS ORDERED: ONDANSETRON *ODT* 4 MG TABLET SL PRN (17:53)
[2023-01-05] MEDS ORDERED: LOPERAMIDE HCL 2 MG CAPSULE PO PRN (17:53)
[2023-01-05] MEDS ORDERED: ACETAMINOPHEN 325 MG TABLET (FP) PO PRN (17:53)
[2023-01-05] MEDS ORDERED: BISMUTH SUBSALICYLATE 524 MG/30 ML PO PRN (17:53)
[2023-01-05] MEDS ORDERED: hydrOXYzine PAMOATE 25 MG CAPSULE (FP) PO PRN (17:53)
[2023-01-05] MEDS ORDERED: guaiFENesin 600 MG TABLET.ER (FP) PO PRN (17:53)
[2023-01-05] MEDS ORDERED: NICOTINE 10 MG CARTRIDGE (INHALER) IH PRN (17:53)
[2023-01-05] MEDS ORDERED: BENZOCAINE/MENTHOL (CHLORASEPTIC ) LOZENGE MM PRN (17:53)
[2023-01-05] MEDS: METHOCARBAMOL 500 MG TABLET PO PRN (19:17)
[2023-01-05] MEDS ORDERED: MELATONIN 5 MG TABLETS PO SCH (22:00)
[2023-01-05] MEDS ORDERED: THIAMINE HCL 100 MG TABLET (FP) PO SCH (22:00)
[2023-01-06] MEDS ORDERED: PRENATAL VITAMINS W/ FOLIC ACID TABLET (FP) PO SCH (10:00)
[2023-01-06] MEDS ORDERED: NICOTINE 14 MG/24 HOURS TOPICAL PATCH TD SCH (10:00)
[2023-01-06] MEDS: METHOCARBAMOL 500 MG TABLET PO PRN (10:14)
[2023-01-06 13:09] LABS: POTASSIUM 4.7 mmol/L (3.5-5.1)
[2023-01-06 13:11] LABS: CALCIUM 9.6 mg/dL (8.5-10.1); HEMATOCRIT 46.2 % (35.4-49); HEMOGLOBIN 15.6 GM/dL (11.7-16.9); MCH 31.7 pg (25.7-33.7); MCHC 33.7 g/dl (32.0-35.9); MEAN CELL VOLUME 94.2 fl (80-96); MEAN PLT VOLUME 9.8 fl (7.5-11.1); PLATELET COUNT 200 10^3/uL (134-434); RBC 4.91 M/mm3 (4.00-5.60); RDW 13.1 % (11.9-15.9); WHITE BLOOD COUNT 5.7 K/mm3 (4.0-10.0)
[2023-01-06 13:12] LABS: ALBUMIN 3.6 g/dl (3.4-5.0); BLOOD UREA NITROGEN 8.4 mg/dL (7-18)
[2023-01-06 13:15] LABS: CREATININE 0.9 mg/dL (0.55-1.3)
[2023-01-06 13:17] LABS: BILIRUBIN,TOTAL 0.6 mg/dL (0.2-1)
[2023-01-06 13:27] VITALS: BP 137/85; PULSE 86; RESP 17; TEMP 98.1
[2023-01-06 14:10] LABS: HIV INTERPRETATION NEGATIVE (NEGATIVE)
== END 2023-01-06 19:21 | disposition left against medical advice (07) | DRG 770 ==
LOC: YASAS 14:27 → Y6N 18:36
PROVIDERS: ADMIT Allergy & Immunology; ATTEND Surgery
PROC: HZ2ZZZZ Detoxification Services for Substance Abuse Treatment (ICD-10-PCS; principal; 2023-01-05)
DX: F10.230 Alcohol dependence with withdrawal, uncomplicated (principal); F14.20 Cocaine dependence, uncomplicated; F12.20 Cannabis dependence, uncomplicated; F17.210 Nicotine dependence, cigarettes, uncomplicated; R63.4 Abnormal weight loss; Z68.21 Body mass index [BMI] 21.0-21.9, adult; Z28.310 Unvaccinated for COVID-19; Z28.9 Immunization not carried out for unspecified reason
CPT/HCPCS: 36415; 80053; 85027; 86780; 87389; 87635; 87811

== ENCOUNTER 2023-01-06 23:06 | Emergency (ER) | payer OTHER ==
[2023-01-06 23:10] VITALS: BP 138/86; PULSE 98; RESP 18; TEMP 97.9; BMI 18.8
== END 2023-01-07 02:58 | disposition home or self-care (01) ==
LOC: JER 23:06
DX: K59.03 Drug induced constipation (principal); L29.9 Pruritus, unspecified; R68.83 Chills (without fever); R51.9 Headache, unspecified; F41.9 Anxiety disorder, unspecified; R63.8 Other symptoms and signs concerning food and fluid intake
CPT/HCPCS: 99282-25

== ENCOUNTER 2023-01-07 03:41 | Inpatient (IN) | payer OTHER ==
[2023-01-07] MEDS ORDERED: BENZONATATE 200 MG CAPSULE PO PRN (03:59)
[2023-01-07] MEDS ORDERED: METHOCARBAMOL 500 MG TABLET PO PRN (03:59)
[2023-01-07] MEDS ORDERED: LOPERAMIDE HCL 2 MG CAPSULE PO PRN (03:59)
[2023-01-07] MEDS ORDERED: NALOXONE HCL (KLOXXADO) 8 MG SPRAY NS PRN (03:59)
[2023-01-07] MEDS ORDERED: MAG HYDROX/AL HYDROX/SIMETH 30 ML UNIT-DOSE CUP PO PRN (03:59)
[2023-01-07] MEDS ORDERED: NICOTINE POLACRILEX 2 MG GUM BUC PRN (03:59)
[2023-01-07] MEDS ORDERED: COLLOIDAL OATMEAL 1 BAR EACH TP PRN (03:59)
[2023-01-07] MEDS ORDERED: AMMONIUM LACTATE 12% LOTION 225 GM BOTTLE TP PRN (03:59)
[2023-01-07] MEDS ORDERED: IBUPROFEN 600 MG TABLET (FP) PO PRN (03:59)
[2023-01-07] MEDS ORDERED: POLYETHYLENE GLYCOL (HEALTHYLAX) 3350 17 GM PACKET PO PRN (03:59)
[2023-01-07] MEDS ORDERED: BENZOCAINE/MENTHOL (CHLORASEPTIC ) LOZENGE MM PRN (03:59)
[2023-01-07] MEDS ORDERED: NALOXONE HCL 0.4 MG/ML VIAL IVPUSH PRN (03:59)
[2023-01-07] MEDS ORDERED: guaiFENesin 600 MG TABLET.ER (FP) PO PRN (03:59)
[2023-01-07] MEDS ORDERED: ACETAMINOPHEN 325 MG TABLET (FP) PO PRN (03:59)
[2023-01-07] MEDS ORDERED: IBUPROFEN 400 MG TABLET (FP) PO PRN (03:59)
[2023-01-07] MEDS ORDERED: MAGNESIUM HYDROX 2400MG/30ML ORAL SUSPENSION 30 ML CUP PO PRN (03:59)
[2023-01-07 04:09] VITALS: BMI 18.1
[2023-01-07] MEDS: PRENATAL VITAMINS W/ FOLIC ACID TABLET (FP) PO SCH (10:22)
[2023-01-07] MEDS: hydrOXYzine PAMOATE 25 MG CAPSULE (FP) PO PRN ×2 (10:22→21:26)
[2023-01-07] MEDS: NICOTINE 14 MG/24 HOURS TOPICAL PATCH TD SCH (10:22)
[2023-01-07] MEDS: MELATONIN 5 MG TABLETS PO SCH (21:25)
[2023-01-07] MEDS: THIAMINE HCL 100 MG TABLET (FP) PO SCH (21:25)
[2023-01-08 07:27] VITALS: RESP 18
[2023-01-08] MEDS: PRENATAL VITAMINS W/ FOLIC ACID TABLET (FP) PO SCH (10:18)
[2023-01-08] MEDS: NICOTINE 14 MG/24 HOURS TOPICAL PATCH TD SCH (10:18)
[2023-01-08] MEDS: hydrOXYzine PAMOATE 25 MG CAPSULE (FP) PO PRN (20:09)
[2023-01-08] MEDS: THIAMINE HCL 100 MG TABLET (FP) PO SCH (22:18)
[2023-01-08] MEDS: MELATONIN 5 MG TABLETS PO SCH (22:19)
[2023-01-09 06:59] VITALS: BP 139/91; PULSE 84; TEMP 96.6
[2023-01-09] MEDS: PRENATAL VITAMINS W/ FOLIC ACID TABLET (FP) PO SCH (09:46)
[2023-01-09] MEDS: NICOTINE 14 MG/24 HOURS TOPICAL PATCH TD SCH (09:46)
[2023-01-09] MEDS: hydrOXYzine PAMOATE 25 MG CAPSULE (FP) PO PRN (09:47)
== END 2023-01-09 17:17 | disposition left against medical advice (07) | DRG 770 ==
LOC: YASAS 03:41 → Y3E 04:59 → Y5N 05:03
PROVIDERS: ADMIT Allergy & Immunology; ATTEND Psychiatry & Neurology Pain Medicine
PROC: HZ42ZZZ Group Counseling for Substance Abuse Treatment, Cognitive-Behavioral (ICD-10-PCS; principal; 2023-01-07)
DX: F11.20 Opioid dependence, uncomplicated (principal); F14.20 Cocaine dependence, uncomplicated; F12.20 Cannabis dependence, uncomplicated; F17.210 Nicotine dependence, cigarettes, uncomplicated
CPT/HCPCS: 87811

== ENCOUNTER 2023-02-09 15:15 | Inpatient (IN) | payer OTHER ==
[2023-02-09 17:09] VITALS: BMI 19.0
[2023-02-09] MEDS ORDERED: MAG HYDROX/AL HYDROX/SIMETH 30 ML UNIT-DOSE CUP PO PRN (21:33)
[2023-02-09] MEDS ORDERED: NALOXONE HCL 0.4 MG/ML VIAL IM PRN (21:33)
[2023-02-09] MEDS ORDERED: LOPERAMIDE HCL 2 MG CAPSULE PO PRN (21:33)
[2023-02-09] MEDS ORDERED: MAGNESIUM HYDROX 2400MG/30ML ORAL SUSPENSION 30 ML CUP PO PRN (21:33)
[2023-02-09] MEDS ORDERED: BISMUTH SUBSALICYLATE 524 MG/30 ML PO PRN (21:33)
[2023-02-09] MEDS ORDERED: ONDANSETRON *ODT* 4 MG TABLET SL PRN (21:33)
[2023-02-09] MEDS ORDERED: IBUPROFEN 400 MG TABLET (FP) PO PRN (21:33)
[2023-02-09] MEDS ORDERED: ACETAMINOPHEN 325 MG TABLET (FP) PO PRN (21:33)
[2023-02-09] MEDS ORDERED: DICYCLOMINE HCL 10 MG CAPSULE PO PRN (21:33)
[2023-02-09] MEDS ORDERED: IBUPROFEN 600 MG TABLET (FP) PO PRN (21:33)
[2023-02-09] MEDS ORDERED: BENZOCAINE/MENTHOL (CHLORASEPTIC ) LOZENGE MM PRN (21:33)
[2023-02-09] MEDS ORDERED: BENZONATATE 200 MG CAPSULE PO PRN (21:33)
[2023-02-09] MEDS ORDERED: guaiFENesin 600 MG TABLET.ER (FP) PO PRN (21:33)
[2023-02-09] MEDS ORDERED: POLYETHYLENE GLYCOL (HEALTHYLAX) 3350 17 GM PACKET PO PRN (21:33)
[2023-02-09] MEDS ORDERED: NALOXONE HCL (KLOXXADO) 8 MG SPRAY NS PRN (21:33)
[2023-02-09] MEDS ORDERED: chlordiazePOXIDE HCL 25 MG CAPSULE PO PRN (21:33)
[2023-02-09] MEDS: chlordiazePOXIDE HCL 25 MG CAPSULE PO SCH (23:18)
[2023-02-09] MEDS: hydrOXYzine PAMOATE 25 MG CAPSULE (FP) PO PRN (23:25)
[2023-02-09] MEDS: THIAMINE HCL 100 MG TABLET (FP) PO SCH (23:25)
[2023-02-09] MEDS: MELATONIN 5 MG TABLETS PO SCH (23:43)
[2023-02-10] MEDS: chlordiazePOXIDE HCL 25 MG CAPSULE PO SCH ×4 (05:37→23:09)
[2023-02-10] MEDS: NICOTINE 14 MG/24 HOURS TOPICAL PATCH TD SCH (10:23)
[2023-02-10] MEDS: METHOCARBAMOL 500 MG TABLET PO PRN (10:23)
[2023-02-10] MEDS: hydrOXYzine PAMOATE 25 MG CAPSULE (FP) PO PRN ×2 (10:23→20:42)
[2023-02-10] MEDS: PRENATAL VITAMINS W/ FOLIC ACID TABLET (FP) PO SCH (10:23)
[2023-02-10] MEDS: MELATONIN 5 MG TABLETS PO SCH (23:11)
[2023-02-10] MEDS: THIAMINE HCL 100 MG TABLET (FP) PO SCH (23:12)
[2023-02-11] MEDS: METHOCARBAMOL 500 MG TABLET PO PRN (03:13)
[2023-02-11] MEDS: chlordiazePOXIDE HCL 25 MG CAPSULE PO SCH ×2 (06:04→10:47)
[2023-02-11] MEDS ORDERED: DICYCLOMINE HCL 10 MG CAPSULE PO ONE (09:15)
[2023-02-11 09:33] VITALS: BP 141/72; PULSE 77; RESP 16; TEMP 98
[2023-02-11] MEDS ORDERED: FAMOTIDINE 20 MG TABLET PO SCH (10:00)
[2023-02-11] MEDS: PRENATAL VITAMINS W/ FOLIC ACID TABLET (FP) PO SCH (10:11)
[2023-02-11] MEDS: NICOTINE 14 MG/24 HOURS TOPICAL PATCH TD SCH (10:11)
[2023-02-11 11:38] LABS: HEMATOCRIT 46.4 % (35.4-49); HEMOGLOBIN 15.3 GM/dL (11.7-16.9); MCH 31.4 pg (25.7-33.7); MCHC 32.9 g/dl (32.0-35.9); MEAN CELL VOLUME 95.5 fl (80-96); PLATELET COUNT 208 10^3/uL (134-434); RBC 4.86 M/mm3 (4.00-5.60); RDW 13.2 % (11.9-15.9); WHITE BLOOD COUNT 6.5 K/mm3 (4.0-10.0)
[2023-02-11 11:50] LABS: POTASSIUM 4.2 mmol/L (3.5-5.1)
[2023-02-11 11:58] LABS: CALCIUM 9.1 mg/dL (8.5-10.1)
[2023-02-11 11:59] LABS: ALBUMIN 3.5 g/dl (3.4-5.0); BLOOD UREA NITROGEN 12.6 mg/dL (7-18)
[2023-02-11 12:00] LABS: CREATININE 0.7 mg/dL (0.55-1.3)
[2023-02-11 12:02] LABS: BILIRUBIN,TOTAL 0.2 mg/dL (0.2-1); TOT PROT 6.8 g/dl (6.4-8.2)
[2023-02-12] MEDS ORDERED: chlordiazePOXIDE HCL 10 MG CAPSULE PO PRN
[2023-02-12] MEDS ORDERED: chlordiazePOXIDE HCL 10 MG CAPSULE PO SCH (05:00)
[2023-02-13] MEDS ORDERED: chlordiazePOXIDE HCL 10 MG CAPSULE PO SCH (05:00)
[2023-02-14] MEDS ORDERED: chlordiazePOXIDE HCL 10 MG CAPSULE PO ONE (05:00)
== END 2023-02-11 10:25 | disposition left against medical advice (07) | DRG 770 ==
LOC: YASAS 15:15 → Y6N 22:25
PROVIDERS: ADMIT Allergy & Immunology; ATTEND Allergy & Immunology
PROC: HZ2ZZZZ Detoxification Services for Substance Abuse Treatment (ICD-10-PCS; principal; 2023-02-09)
DX: F10.230 Alcohol dependence with withdrawal, uncomplicated (principal); F14.20 Cocaine dependence, uncomplicated; F12.20 Cannabis dependence, uncomplicated; F17.213 Nicotine dependence, cigarettes, with withdrawal; K21.9 Gastro-esophageal reflux disease without esophagitis; R63.4 Abnormal weight loss; Z68.1 Body mass index [BMI] 19.9 or less, adult; Z59.00 Homelessness unspecified
CPT/HCPCS: 36415; 80053; 85027; 86780; 87635